=== PATIENT | male | born 1950 | race American Indian/Alaskan Native ===

== ENCOUNTER 2018-07-08 17:29 | Inpatient (IN) | payer MEDICARE ==
--- NOTE | 2018-07-08 17:47 | Emergency Department Report ---
ED Altered Mental Status HPI - General Stated Complaint: FEVER Time Seen by Provider: 07/08/18 17:33 Source: EMS Mode of arrival: Stretcher Limitations: Altered Mental Status - History of Present Illness Initial Comments: Condition is 68-year-old male that [facility] for fever and foul-smelling urine. Report received from EMS. Per EMS patient has had increased confusion and decreased appetite and fever and foul-smelling urine for the past 24 hours. Patient is A&OX1... Patient denies symptoms. MD Complaint: altered mental status, confusion -: Sudden Severity: Unable to Determine Associated Symptoms: fever/chills, foul smelling urine. denies: chest pain, cough, diaphoresis, headaches, loss of appetite, malaise, nausea/vomiting, rash, seizure, shortness of breath, syncope, weakness, difficulty walking, diarrhea, incontinence - Related Data Home Medications Medication Instructions Recorded Confirmed Last Taken Amlodipine Besylate/Benazepril 1 each PO 04/14/13 04/14/13 Unknown [Lotrel 10-40 mg] Aspirin [Baby Aspirin] 04/14/13 04/14/13 Unknown Ezetimibe/Simvastatin [Vytorin 1 each PO 04/14/13 04/14/13 Unknown 10-20 mg] [place]-3 Fatty Acids [[place]-3] 100 mg PO 04/14/13 04/14/13 Unknown Triamter/Hctz 37.5-25 mg 1 tab PO QDAY 04/14/13 04/14/13 Unknown [Maxzide-25] Previous Rx's Medication Instructions Recorded Last Taken Type Clopidogrel [Plavix] 75 mg PO QDAY #30 tablet 04/18/13 Unknown Rx HYDROcodone/APAP 5-325 [[place] 1 each PO Q8HR PRN #30 tablet 04/18/13 Unknown Rx 5-325 mg TAB] Allergies Allergy/AdvReac Type Severity Reaction Status Date / Time No Known Allergies Allergy Unverified 04/14/13 15:08 ED Review of Systems ROS: Stated complaint: FEVER Other details as noted in HPI Comment: Unobtainable due to pts medical conditions ED Past Medical Hx - Past Medical History Previous Medical History?: Yes Hx Hypertension: Yes Hx CVA: Yes (1991) Hx Congestive Heart Failure: No Hx Diabetes: Yes Hx Arthritis: Yes Hx Asthma: No Hx COPD: No Hx HIV: No Additional medical history: high cholesterol - Surgical History Past Surgical History?: Yes Additional Surgical History: cva 1989 - Family History Family history: no significant - Social History Smoking Status: Never Smoker Substance Use Type: None - Medications Home Medications: Home Medications Medication Instructions Recorded Confirmed Last Taken Type Amlodipine Besylate/Benazepril 1 each PO 04/14/13 04/14/13 Unknown History [Lotrel 10-40 mg] Aspirin [Baby Aspirin] 04/14/13 04/14/13 Unknown History Ezetimibe/Simvastatin [Vytorin 1 each PO 04/14/13 04/14/13 Unknown History 10-20 mg] [place]-3 Fatty Acids [[place]-3] 100 mg PO 04/14/13 04/14/13 Unknown History Triamter/Hctz 37.5-25 mg 1 tab PO QDAY 04/14/13 04/14/13 Unknown History [Maxzide-25] Clopidogrel [Plavix] 75 mg PO QDAY #30 tablet 04/18/13 Unknown Rx HYDROcodone/APAP 5-325 [[place] 1 each PO Q8HR PRN #30 tablet 04/18/13 Unknown Rx 5-325 mg TAB] ED Physical Exam - General Limitations: Altered Mental Status General appearance: alert, in no apparent distress - Head Head exam: Present: atraumatic, normocephalic - Eye Eye exam: Present: normal appearance - ENT ENT exam: Present: mucous membranes moist - Neck Neck exam: Present: normal inspection - Respiratory Respiratory exam: Present: normal lung sounds bilaterally. Absent: respiratory distress - Cardiovascular Cardiovascular Exam: Present: regular rate, normal rhythm. Absent: systolic murmur, diastolic murmur, rubs, gallop - GI/Abdominal GI/Abdominal exam: Present: soft, normal bowel sounds - Rectal Rectal exam: Present: deferred - Extremities Exam Extremities exam: Present: normal inspection - Back Exam Back exam: Present: normal inspection - Neurological Exam Neurological exam: Present: alert, altered - Psychiatric Psychiatric exam: Present: normal affect, normal mood - Skin Skin exam: Present: warm, dry, intact, normal color. Absent: rash - Assessment Assessment Interval: Baseline - Level of Consciousness 1a. Level of Consciousness: alert/keenly responsive - LOC Questions 1b. LOC Questions: answers both correctly - LOC Command 1c. LOC Commands: performs tasks correctly - Best Gaze 2. Best Gaze: normal - Visual 3. Visual: no visual loss - Facial Palsy 4. Facial Palsy: normal symmetrical movement - Motor Arm 5b. Motor Arm Right: no drift 5a. Motor Arm Left: no drift - Motor Leg 6b. Motor Leg Right: no drift 6a. Motor Leg Left: no drift - Limb Ataxia 7. Limb Ataxia: absent - Sensory 8. Sensory: normal - Best Language 9. Best Language: no aphasia - Dysarthria 10. Dysarthria: normal - Extinction and Inattention 11. Extinction/Inattention: no abnormality - Scoring Total Score: 0 Stroke Severity: No Stroke Symptoms ED Course Vital Signs 07/08/18 17:35 Temperature 101.6 F H Pulse Rate 112 H Respiratory 16 Rate Blood Pressure 125/72 O2 Sat by Pulse 96 Oximetry - Reevaluation(s) Reevaluation #1: discussed all results with family. Family agrees to plan of care and admission. 07/08/18 20:22 - Consultations Consultation #1: Hospitalist consult for admission. Hospitalist to admit patient. Bridge orders placed 07/08/18 20:22 07/08/18 20:24 - Lab Data Result diagrams: 07/08/18 17:55 07/08/18 17:55 Lab Results 07/08/18 07/08/18 07/08/18 Range/Units 17:55 17:55 17:55 WBC 9.4 (4.5-11.0) K/mm3 RBC 5.05 H (3.65-5.03) M/mm3 Hgb 15.1 (11.8-15.2) gm/dl Hct 46.0 H (35.5-45.6) % MCV 91 (84-94) fl MCH 30 (28-32) pg MCHC 33 (32-34) % RDW 14.4 (13.2-15.2) % Plt Count 255 (140-440) K/mm3 Sodium 135 L (137-145) mmol/L Potassium 3.7 (3.6-5.0) mmol/L Chloride 100.8 (98-107) mmol/L Carbon Dioxide 21 L (22-30) mmol/L Anion Gap 17 mmol/L BUN 11 (9-20) mg/dL Creatinine 0.8 (0.8-1.5) mg/dL Estimated GFR > 60 ml/min BUN/Creatinine Ratio 14 % Glucose 119 H (75-100) mg/dL Lactic Acid 1.50 (0.7-2.0) mmol/L Calcium 9.5 (8.4-10.2) mg/dL Total Bilirubin 0.60 (0.1-1.2) mg/dL AST 18 (5-40) units/L ALT 20 (7-56) units/L Alkaline Phosphatase 88 (35-129) units/L Total Protein 7.5 (6.3-8.2) g/dL Albumin 3.4 L (3.9-5) g/dL Albumin/Globulin Ratio 0.8 % Urine Color (Yellow) Urine Turbidity (Clear) Urine pH (5.0-7.0) Ur Specific [place] (1.003-1.030) Urine Protein (Negative) mg/dL Urine Glucose (UA) (Negative) mg/dL Urine Ketones (Negative) mg/dL Urine Blood (Negative) Urine Nitrite (Negative) Urine Bilirubin (Negative) Urine Urobilinogen (<2.0) mg/dL Ur Leukocyte Esterase (Negative) Urine WBC (Auto) (0.0-6.0) /HPF Urine RBC (Auto) (0.0-6.0) /HPF U Epithel Cells (Auto) (0-13.0) /HPF Urine Bacteria (Auto) (Negative) /HPF Urine Mucus /HPF 07/08/18 Range/Units 19:57 WBC (4.5-11.0) K/mm3 RBC (3.65-5.03) M/mm3 Hgb (11.8-15.2) gm/dl Hct (35.5-45.6) % MCV (84-94) fl MCH (28-32) pg MCHC (32-34) % RDW (13.2-15.2) % Plt Count (140-440) K/mm3 Sodium (137-145) mmol/L Potassium (3.6-5.0) mmol/L Chloride (98-107) mmol/L Carbon Dioxide (22-30) mmol/L Anion Gap mmol/L BUN (9-20) mg/dL Creatinine (0.8-1.5) mg/dL Estimated GFR ml/min BUN/Creatinine Ratio % Glucose (75-100) mg/dL Lactic Acid (0.7-2.0) mmol/L Calcium (8.4-10.2) mg/dL Total Bilirubin (0.1-1.2) mg/dL AST (5-40) units/L ALT (7-56) units/L Alkaline Phosphatase (35-129) units/L Total Protein (6.3-8.2) g/dL Albumin (3.9-5) g/dL Albumin/Globulin Ratio % Urine Color Yellow (Yellow) Urine Turbidity Clear (Clear) Urine pH 6.0 (5.0-7.0) Ur Specific [place] 1.012 (1.003-1.030) Urine Protein <15 mg/dl (Negative) mg/dL Urine Glucose (UA) Neg (Negative) mg/dL Urine Ketones Tr (Negative) mg/dL Urine Blood Mod (Negative) Urine Nitrite Pos (Negative) Urine Bilirubin Neg (Negative) Urine Urobilinogen 4.0 (<2.0) mg/dL Ur Leukocyte Esterase Sm (Negative) Urine WBC (Auto) 21.0 H (0.0-6.0) /HPF Urine RBC (Auto) 15.0 (0.0-6.0) /HPF U Epithel Cells (Auto) < 1.0 (0-13.0) /HPF Urine Bacteria (Auto) 1+ (Negative) /HPF Urine Mucus Few /HPF - Medical Decision Making Patient is a 68-year-old male that presents emergent with altered mental status bowel smelling urine P a patient found to have a UTI. Patient admitted to the hospitalist service for further outpatient treatment. Patient's labs essentially negative. - Differential Diagnosis uti. Altered mental status. dehydration Critical care attestation.: If time is entered above; I have spent that time in minutes in the direct care of this critically ill patient, excluding procedure time. ED Disposition Clinical Impression: Foul smelling urine, Dehydration Altered mental state Qualifiers: Altered mental status type: unspecified Qualified Code(s): R41.82 - Altered mental status, unspecified Disposition: OP ADMIT IP TO THIS HOSP Is pt being admited?: Yes Does the pt Need Aspirin: No Condition: Serious Time of Disposition: 20:21
[2018-07-08 18:16] LABS: Hemoglobin 15.1 gm/dl (11.8-15.2); Mean Corpuscular HGB Conc 33 % (32-34); Mean Corpuscular Volume 91 fl (84-94); Platelet Count 255 K/mm3 (140-440); Red Blood Count 5.05 M/mm3 (3.65-5.03); Red Cell Distribution Width 14.4 % (13.2-15.2)
[2018-07-08 18:25] LABS: Alanine Aminotransferase 20 units/L (7-56); Albumin 3.4 g/dL (3.9-5); BUN/Creatinine Ratio 14; Blood Urea Nitrogen 11 mg/dL (9-20); Calcium 9.5 mg/dL (8.4-10.2); Hemolysis Index 17
[2018-07-08] MEDS ORDERED: TYLENOL PR ONE (19:59)
[2018-07-08 20:18] LABS: Bacteria,Urine 1+ /HPF (Negative); Bilirubin,Urine NEG (Negative); Blood,Urine MOD (Negative); Color,Urine Yellow (Yellow); Mucus,Urine FEW /HPF; Protein,Urine <15 mg/dL mg/dL (Negative)
[2018-07-08] MEDS ORDERED: NACL 0.9% 1000 ML 1,000 ML IV ONE (20:21)
[2018-07-08] MEDS ORDERED: ROCEPHIN/NS 1 GM/50 ML 1 GM/50 ML BAG IV ONE (20:21)
[2018-07-08] MEDS ORDERED: D50W (25GM) Syringe IV PRN (22:48)
[2018-07-08] MEDS ORDERED: TYLENOL PO PRN (22:51)
--- NOTE | 2018-07-09 04:32 | History and Physical Report ---
CHIEF COMPLAINT: Altered mental status. HISTORY OF PRESENT ILLNESS: The patient is a 68-year-old male, who was brought in from [facility] because of fever and foul-smelling urine. The patient was noted to be more confused than his baseline with decreased appetite, fever and foul-smelling urine going on for about 24 hours. There is no history of shortness of breath. No history of nausea and vomiting and no history of chest pain. PAST MEDICAL HISTORY: Pertinent for hypertension, cerebrovascular accident, diabetes mellitus, arthritis, hypercholesterolemia, Alzheimer. PAST SURGICAL HISTORY: Pertinent for surgery in 1989. FAMILY HISTORY: Noncontributory. SOCIAL HISTORY: The patient is cleared by the [facility]. The patient does not smoke, does not drink alcohol and does not use illicit drugs. MEDICATIONS: The patient is on amlodipine/benazepril 10/40 mg 1 by mouth daily, aspirin, dose and frequency unknown, Vytorin 10/20 mg 1 by mouth daily, [place]-3 fatty acid 100 mg by mouth daily, Maxzide 25 one by mouth daily, Plavix 75 mg by mouth daily, [place] 5/325 mg 1 by mouth every 8 hours as needed for pain. ALLERGIES: There are no known drug allergies. REVIEW OF SYSTEMS: CONSTITUTIONAL: Fever present. No chills, no diaphoresis. HEENT: There is no headache or sore throat. CARDIOVASCULAR SYSTEM: There is no chest pain or orthopnea. RESPIRATORY SYSTEM: There is no shortness of breath or cough. GASTROINTESTINAL SYSTEM: There is no nausea, no vomiting, no abdominal pain, diarrhea or constipation. NEUROLOGICAL: Altered mental status present. No numbness, no dizziness. MUSCULOSKELETAL SYSTEM: There is no joint pain or swelling. DERMATOLOGICAL SYSTEM: There is no skin rash or itching. GENITOURINARY SYSTEM: There is no dysuria, hematuria, or flank pain; however, there is foul-smelling urine. Rest of the system review is normal. PHYSICAL EXAMINATION: GENERAL: At the time of exam, the patient was found to be alert, oriented to person only and not in acute distress. VITAL SIGNS: Shows temperature of 101.6 degrees Fahrenheit, pulse of 112, respirations 16, blood pressure 125/72, O2 sat of 96% on room air. HEENT: Showed pupils to be equal, round, reactive to light and accommodating. Extraocular muscles are intact. NECK: Supple with no JVD or carotid bruit. CARDIOVASCULAR: Show normal first and second heart sounds with no gallops or murmur. RESPIRATORY: Showed good air entry on both sides of the lung with no abnormal breath sounds. GASTROINTESTINAL SYSTEM: Show abdomen to be full, soft, nontender with no organomegaly or rigidity. NEUROLOGIC: Shows no focal deficit. MUSCULOSKELETAL SYSTEM: Show no joint swelling or tenderness. DERMATOLOGICAL SYSTEM: Show no skin rash. GENITOURINARY SYSTEM: Showing no costovertebral angle tenderness. PERTINENT LABORATORY AND IMAGING STUDIES: The patient has CBC done with normal white count, normal hemoglobin and slightly elevated hematocrit of 46. The patient's chemistry showed low sodium of 135, normal potassium, normal chloride, low CO2 of 21 And low albumin of 3.4. The patient's urinalysis show no urine leukocyte esterase with elevated urine WBC of 21 and elevated urine RBC of 15 and 1+ bacteria with trace ketones and positive urine nitrite. DIAGNOSES: 1. Altered mental status. 2. Urinary tract infection. PLAN OF ACTION: 1. The patient will be admitted to medical floor on remote telemetry. 2. Transient ischemic attack. The patient will be on IV ceftriaxone 1 gram daily for treatment of urinary tract infection. 3. The patient will have speech therapy evaluation for difficulty in swallowing. 4. The patient will be on Accu-Chek before meals and at bedtime followed by low-dose sliding scale using regular insulin coverage. 5. The patient will be on his home medication as shown in the medication reconciliation section. 6. The patient will be on normal saline at 75 mL an hour. 7. The patient will be on his home medication as shown in the medication reconciliation section. JOB# [id number] OCN/NTS
[2018-07-09] MEDS: NACL 0.9% 1000 ML 1,000 ML IV SCH ×2 (06:05→20:08)
--- NOTE | 2018-07-09 08:08 | Progress Note ---
Assessment and Plan Assessment and plan: Patient is a 68 yo man from [place] with a history of Dementia, CVA s/p tPA 2012, hypertension and dyslipidemia who presented to [facility] ED with AMS, fever and foul smelling urine. -Sepsis from UTI: consult ID, treat with abx, ivf, tylenol, and follow cultures -Acute metabolic encephalopathy due to above -Hypertension: low salt diet -Dyslipidemia: statin History Interval history: Patient was seen and examined. Follow-up on current diagnosis of fever, uti. Overnight uneventful. Imaging, nursing note, chart, labs and old chart reviewed. Hospitalist Physical - Physical exam Narrative exam: Gen: WDWN, NAD, Awake, Alert, confused HEENT: NCAT, EOMI, PERRL, OP Clear Neck: supple, no adenopathy, no thyromegaly, no JVD CVS/Heart: RRR, normal S1S2, pulses present bilaterally Chest/Lungs: CTA B, Symmetrical chest expansion, good air entry bilaterally GI/Abdomen: soft, NTND, good bowel sounds, no guarding or rebound /Bladder: no suprapubic tenderness, no CVA or paraspinal tenderness Extermity/Skin: no c/c/e, no obvious rash MSK: FROM x 4 Neuro: CN 2-12 grossly intact, no new focal deficits Psych: calm - Constitutional Vitals: Temp Pulse Resp BP Pulse Ox 99.5 F 87 20 133/65 93 07/09/18 02:34 07/09/18 02:34 07/09/18 02:34 07/09/18 02:34 07/09/18 02:34 Results - Labs CBC & Chem 7: 07/08/18 17:55 07/08/18 17:55 Labs: Laboratory Last Values WBC 9.4 K/mm3 (4.5-11.0) 07/08/18 17:55 RBC 5.05 M/mm3 (3.65-5.03) H 07/08/18 17:55 Hgb 15.1 gm/dl (11.8-15.2) 07/08/18 17:55 Hct 46.0 % (35.5-45.6) H 07/08/18 17:55 MCV 91 fl (84-94) 07/08/18 17:55 MCH 30 pg (28-32) 07/08/18 17:55 MCHC 33 % (32-34) 07/08/18 17:55 RDW 14.4 % (13.2-15.2) 07/08/18 17:55 Plt Count 255 K/mm3 (140-440) 07/08/18 17:55 Sodium 135 mmol/L (137-145) L 07/08/18 17:55 Potassium 3.7 mmol/L (3.6-5.0) 07/08/18 17:55 Chloride 100.8 mmol/L (98-107) 07/08/18 17:55 Carbon Dioxide 21 mmol/L (22-30) L 07/08/18 17:55 Anion Gap 17 mmol/L 07/08/18 17:55 BUN 11 mg/dL (9-20) 07/08/18 17:55 Creatinine 0.8 mg/dL (0.8-1.5) 07/08/18 17:55 Estimated GFR > 60 ml/min 07/08/18 17:55 BUN/Creatinine Ratio 14 % 07/08/18 17:55 Glucose 119 mg/dL (75-100) H 07/08/18 17:55 Lactic Acid 1.50 mmol/L (0.7-2.0) 07/08/18 17:55 Calcium 9.5 mg/dL (8.4-10.2) 07/08/18 17:55 Total Bilirubin 0.60 mg/dL (0.1-1.2) 07/08/18 17:55 AST 18 units/L (5-40) 07/08/18 17:55 ALT 20 units/L (7-56) 07/08/18 17:55 Alkaline Phosphatase 88 units/L (35-129) 07/08/18 17:55 Total Protein 7.5 g/dL (6.3-8.2) 07/08/18 17:55 Albumin 3.4 g/dL (3.9-5) L 07/08/18 17:55 Albumin/Globulin Ratio 0.8 % 07/08/18 17:55 Urine Color Yellow (Yellow) 07/08/18 19:57 Urine Turbidity Clear (Clear) 07/08/18 19:57 Urine pH 6.0 (5.0-7.0) 07/08/18 19:57 Ur Specific [place] 1.012 (1.003-1.030) 07/08/18 19:57 Urine Protein <15 mg/dl mg/dL (Negative) 07/08/18 19:57 Urine Glucose (UA) Neg mg/dL (Negative) 07/08/18 19:57 Urine Ketones Tr mg/dL (Negative) 07/08/18 19:57 Urine Blood Mod (Negative) 07/08/18 19:57 Urine Nitrite Pos (Negative) 07/08/18 19:57 Urine Bilirubin Neg (Negative) 07/08/18 19:57 Urine Urobilinogen 4.0 mg/dL (<2.0) 07/08/18 19:57 Ur Leukocyte Esterase Sm (Negative) 07/08/18 19:57 Urine WBC (Auto) 21.0 /HPF (0.0-6.0) H 07/08/18 19:57 Urine RBC (Auto) 15.0 /HPF (0.0-6.0) 07/08/18 19:57 U Epithel Cells (Auto) < 1.0 /HPF (0-13.0) 07/08/18 19:57 Urine Bacteria (Auto) 1+ /HPF (Negative) 07/08/18 19:57 Urine Mucus Few /HPF 07/08/18 19:57
[2018-07-09] MEDS: HumaLOG SUB-Q SCH ×3 (09:54→19:30)
[2018-07-09] MEDS: PROSCAR PO SCH (09:56)
[2018-07-09] MEDS: PLAVIX PO SCH (09:56)
[2018-07-09] MEDS: NORVASC PO SCH (09:57)
[2018-07-09] MEDS: BABY ASPIRIN PO SCH (09:57)
[2018-07-09] MEDS: HEPARIN SUB-Q SCH ×2 (09:57→21:52)
[2018-07-09] MEDS: ROCEPHIN/NS 1 GM/50 ML 1 GM/50 ML BAG IV SCH (10:19)
--- NOTE | 2018-07-09 11:59 | Consultation ---
History of Present Illness - Reason for Consult Consult date: 07/09/18 Sepsis, UTI Requesting physician: ESTEVAN MOSQUERA - History of Present Illness The patient is a 68-year-old male with coronary artery disease, BPH, Alzheimer's disease, intermediate resident was brought to the emergency room yesterday with fever and complaints of foul-smelling urine. There were concerns for a possible urinary tract infection. Patient was also thought to be more confused compared to his baseline. Here, he was noted to have a temperature of 101.6F. Patient was started empirically on IV ceftriaxone. Infectious diseases was consulted for antibiotic recommendations. The patient is awake alert, comfortable. He is able to answer basic questions. He is oriented to place, knows he is in the hospital, thinks it is July 2011. He denies any discomfort. Denies any nausea, vomiting. Denies any urinary burning. Due to the patient being a poor historian, history was obtained also from chart review and by discussing with the patient's RN. It seems that the patient had a Huang catheter that was inserted in the emergency room and then later removed upon transfer to the floor. The patient did not come in with a indwelling Huang catheter. Review of Systems: Limited due to AMS and dementia Medications and Allergies Allergies Allergy/AdvReac Type Severity Reaction Status Date / Time No Known Allergies Allergy Unverified 04/14/13 15:08 Home Medications Medication Instructions Recorded Confirmed Last Taken Type Aspirin [Baby Aspirin] 1 tab PO DAILY 04/14/13 07/08/18 Unknown History Triamter/Hctz 37.5-25 mg 1 tab PO QDAY 04/14/13 07/08/18 Unknown History [Maxzide-25] Clopidogrel [Plavix] 75 mg PO QDAY #30 tablet 04/18/13 07/08/18 Unknown Rx Acetaminophen 325 mg PO Q4H PRN 07/08/18 07/08/18 Unknown History AtorvaSTATin 80 mg PO DAILY 07/08/18 07/08/18 Unknown History Finasteride 5 mg PO DAILY 07/08/18 07/08/18 Unknown History Tamsulosin 0.4 mg PO HS 07/08/18 07/08/18 Unknown History amLODIPine 10 mg PO DAILY 07/08/18 07/08/18 Unknown History Active Meds: Active Medications Acetaminophen (Tylenol) 650 mg PO Q4H PRN PRN Reason: Fever >101 Amlodipine Besylate (Norvasc) 10 mg PO DAILY [facility] Last Admin: 07/09/18 09:57 Dose: 10 mg Documented by: Aspirin (Baby Aspirin) 81 mg PO DAILY [facility] Last Admin: 07/09/18 09:57 Dose: 81 mg Documented by: Atorvastatin Calcium (Lipitor) 80 mg PO DAILY [facility] Last Admin: 07/09/18 09:56 Dose: 80 mg Documented by: Clopidogrel Bisulfate (Plavix) 75 mg PO QDAY [facility] Last Admin: 07/09/18 09:56 Dose: 75 mg Documented by: Dextrose (D50w (25gm) Syringe) 50 ml IV PRN PRN PRN Reason: Hypoglycemia Finasteride (Proscar) 5 mg PO DAILY [facility] Last Admin: 07/09/18 09:56 Dose: 5 mg Documented by: Heparin Sodium (Porcine) (Heparin) 5,000 unit SUB-Q Q12HR [facility] Last Admin: 07/09/18 09:57 Dose: 5,000 unit Documented by: Ceftriaxone Sodium (Rocephin/Ns 1 Gm/50 Ml) 1 gm in 50 mls @ 100 mls/hr IV Q24HR [facility]; Protocol Last Admin: 07/09/18 10:19 Dose: 100 mls/hr Documented by: Sodium Chloride (Nacl 0.9% 1000 Ml) 1,000 mls @ 75 mls/hr IV DIRECT [facility] Last Admin: 07/09/18 06:05 Dose: 75 mls/hr Documented by: Insulin Human Lispro (Humalog) 0 unit SUB-Q [facility]; Protocol Last Admin: 07/09/18 09:54 Dose: Not Given Documented by: Insulin Human Lispro (Humalog) 0 unit SUB-Q QHS [facility]; Protocol Tamsulosin HCl (Flomax) 0.4 mg PO HS [facility] Triamterene/HCTZ (Maxzide-25) 1 each PO QDAY [facility] Physical Examination - Physical Exam Narrative exam: Physical Exam: Constitutional: Alert, cooperative. No acute distress Head, Ears, Nose: Normocephalic, atraumatic. External ears, nose normal Eyes: Conjunctivae/corneas clear. No icterus. No ptosis. Neck: Supple, no meningeal signs Oral: no thrush, no ulcers. Cardiovascular: S1, S2 normal. Respiratory: Good air entry, clear to auscultation bilaterally GI: Soft, non-tender; bowel sounds normal. No peritoneal signs. Has adult di apers on. Musculoskeletal: No pedal edema, no cyanosis. No suprapubic or CVA tenderness. Skin: No rash or abscess Hem/Lymphatic: No palpable cervical or supraclavicular nodes. No lymphangitis Psych: Mood ok. Affect normal Neurological: Awake, alert, oriented x 1. No gross abnormality - Constitutional Vitals: Vital Signs Temp Pulse Resp BP Pulse Ox 99.4 F 78 20 125/68 92 07/09/18 07:54 07/09/18 07:54 07/09/18 07:54 07/09/18 09:57 07/09/18 07:54 Temperature -Last 24 Hours Temperature 99.4 F Temperature 99.5 F Temperature 100.8 F Temperature 99 F Temperature 101.6 F Results - Labs CBC & Chem 7: 07/08/18 17:55 07/08/18 17:55 Labs: Abnormal lab results 07/08/18 07/08/18 07/08/18 Range/Units 17:55 17:55 19:57 RBC 5.05 H (3.65-5.03) M/mm3 Hct 46.0 H (35.5-45.6) % Sodium 135 L (137-145) mmol/L Carbon Dioxide 21 L (22-30) mmol/L Glucose 119 H (75-100) mg/dL Albumin 3.4 L (3.9-5) g/dL Urine WBC (Auto) 21.0 H (0.0-6.0) /HPF Assessment and Plan Cultures: None this admission. A/P: 68-year-old male with coronary artery disease, BPH, Alzheimer's disease, intermediate resident, admitted with: 1) SIRS v/s Sepsis, likely secondary to urinary tract infection: The UA showed pyuria. Patient with known history of BPH. As per discussion with RN, he did not come in with an indwelling Huang catheter (seems one was briefly inserted in ER and then removed). Currently responding well to treatment. Urine and blood culture both it seems were not collected for some reason. We will try to do a lab add-on. Continue ceftriaxone for now. Clinically, there is no concern for a pyelonephritis. 2) Acute encephalopathy on background of dementia: Appears to be now at baseline Recs: - Urine and blood culture both it seems were not collected for some reason. He has already received antibiotics now, so yield is going to be low. - Continue IV Ceftriaxone 1 gm q24 hrs, if he remains afebrile for 24 hours, OK to discharge on PO Cefdinir 300 mg BID to complete a total of 7 days d/w Dr. Mosquera. Rachell Stevens MD [facility] C: [phone] O: [phone] F: [phone]
[2018-07-09] MEDS: MAXZIDE-25 PO SCH (13:04)
[2018-07-09] MEDS ORDERED: HumaLOG SUB-Q SCH (22:00)
[2018-07-09] MEDS ORDERED: FLOMAX PO SCH (22:00)
[2018-07-10] MEDS: HumaLOG SUB-Q SCH (10:32)
[2018-07-10] MEDS: ROCEPHIN/NS 1 GM/50 ML 1 GM/50 ML BAG IV SCH (12:26)
[2018-07-10] MEDS: BABY ASPIRIN PO SCH (12:29)
[2018-07-10] MEDS: MAXZIDE-25 PO SCH (12:37)
[2018-07-10] MEDS: HEPARIN SUB-Q SCH (12:37)
[2018-07-10] MEDS: NORVASC PO SCH (12:38)
[2018-07-10] MEDS: PLAVIX PO SCH (12:39)
[2018-07-10] MEDS: PROSCAR PO SCH (12:40)
--- NOTE | 2018-07-10 13:28 | Progress Note ---
Assessment and Plan Assessment and plan: Patient is a 68 yo man from [place] with a history of Dementia, CVA s/p tPA 2012, hypertension and dyslipidemia who presented to [facility] ED with AMS, fever and foul smelling urine. -Sepsis from UTI: no fever >24hours, tylenol, and no cultures done prior to starting abx on admission -Acute metabolic encephalopathy due to above -Hypertension: low salt diet -Dyslipidemia: statin Back to [facility]. Patient's NOK: Daughter, Dominique Osuna contact: [phone] informed the patient will return to [facility] when d/c. whom I called at 1315 and left message. History Interval history: Patient was seen and examined. Follow-up on current diagnosis of fever, uti. Overnight uneventful. Imaging, nursing note, chart, labs and old chart reviewed. Hospitalist Physical - Physical exam Narrative exam: Gen: WDWN, NAD, Awake, Alert, confused HEENT: NCAT, EOMI, PERRL, OP Clear Neck: supple, no adenopathy, no thyromegaly, no JVD CVS/Heart: RRR, normal S1S2, pulses present bilaterally Chest/Lungs: CTA B, Symmetrical chest expansion, good air entry bilaterally GI/Abdomen: soft, NTND, good bowel sounds, no guarding or rebound /Bladder: no suprapubic tenderness, no CVA or paraspinal tenderness Extermity/Skin: no c/c/e, no obvious rash MSK: right hemiparesis Neuro: CN 2-12 grossly intact, no new focal deficits Psych: calm - Constitutional Vitals: Temp Pulse Resp BP Pulse Ox 99.1 F 75 20 129/73 96 07/10/18 07:25 07/10/18 07:25 07/10/18 07:25 07/10/18 12:38 07/10/18 07:25 Results - Labs CBC & Chem 7: 07/08/18 17:55 07/08/18 17:55 Labs: Laboratory Last Values WBC 9.4 K/mm3 (4.5-11.0) 07/08/18 17:55 RBC 5.05 M/mm3 (3.65-5.03) H 07/08/18 17:55 Hgb 15.1 gm/dl (11.8-15.2) 07/08/18 17:55 Hct 46.0 % (35.5-45.6) H 07/08/18 17:55 MCV 91 fl (84-94) 07/08/18 17:55 MCH 30 pg (28-32) 07/08/18 17:55 MCHC 33 % (32-34) 07/08/18 17:55 RDW 14.4 % (13.2-15.2) 07/08/18 17:55 Plt Count 255 K/mm3 (140-440) 07/08/18 17:55 Sodium 135 mmol/L (137-145) L 07/08/18 17:55 Potassium 3.7 mmol/L (3.6-5.0) 07/08/18 17:55 Chloride 100.8 mmol/L (98-107) 07/08/18 17:55 Carbon Dioxide 21 mmol/L (22-30) L 07/08/18 17:55 Anion Gap 17 mmol/L 07/08/18 17:55 BUN 11 mg/dL (9-20) 07/08/18 17:55 Creatinine 0.8 mg/dL (0.8-1.5) 07/08/18 17:55 Estimated GFR > 60 ml/min 07/08/18 17:55 BUN/Creatinine Ratio 14 % 07/08/18 17:55 Glucose 119 mg/dL (75-100) H 07/08/18 17:55 POC Glucose 102 (70-105) 07/10/18 11:24 Lactic Acid 1.50 mmol/L (0.7-2.0) 07/08/18 17:55 Calcium 9.5 mg/dL (8.4-10.2) 07/08/18 17:55 Total Bilirubin 0.60 mg/dL (0.1-1.2) 07/08/18 17:55 AST 18 units/L (5-40) 07/08/18 17:55 ALT 20 units/L (7-56) 07/08/18 17:55 Alkaline Phosphatase 88 units/L (35-129) 07/08/18 17:55 Troponin T < 0.010 ng/mL (0.00-0.029) 07/10/18 00:31 Total Protein 7.5 g/dL (6.3-8.2) 07/08/18 17:55 Albumin 3.4 g/dL (3.9-5) L 07/08/18 17:55 Albumin/Globulin Ratio 0.8 % 07/08/18 17:55 Urine Color Yellow (Yellow) 07/08/18 19:57 Urine Turbidity Clear (Clear) 07/08/18 19:57 Urine pH 6.0 (5.0-7.0) 07/08/18 19:57 Ur Specific [place] 1.012 (1.003-1.030) 07/08/18 19:57 Urine Protein <15 mg/dl mg/dL (Negative) 07/08/18 19:57 Urine Glucose (UA) Neg mg/dL (Negative) 07/08/18 19:57 Urine Ketones Tr mg/dL (Negative) 07/08/18 19:57 Urine Blood Mod (Negative) 07/08/18 19:57 Urine Nitrite Pos (Negative) 07/08/18 19:57 Urine Bilirubin Neg (Negative) 07/08/18 19:57 Urine Urobilinogen 4.0 mg/dL (<2.0) 07/08/18 19:57 Ur Leukocyte Esterase Sm (Negative) 07/08/18 19:57 Urine WBC (Auto) 21.0 /HPF (0.0-6.0) H 07/08/18 19:57 Urine RBC (Auto) 15.0 /HPF (0.0-6.0) 07/08/18 19:57 U Epithel Cells (Auto) < 1.0 /HPF (0-13.0) 07/08/18 19:57 Urine Bacteria (Auto) 1+ /HPF (Negative) 07/08/18 19:57 Urine Mucus Few /HPF 07/08/18 19:57 Nutrition/Malnutrition Assess - Dietary Evaluation Nutrition/Malnutrition Findings: Nutrition Notes Start: 07/09/18 16:24 Freq: Status: Active Protocol: Document 07/09/18 16:24 RM (Rec: 07/09/18 16:24 RM [id number]) Nutrition Notes Need for Assessment generated from: MD Order Initial or Follow up Brief Note Current Diagnosis Diabetes Sepsis Hypertension Stroke Other Pertinent Diagnosis Dyslipidemia, Alzheimer's, AMS , UTI Current Diet Consistent Carb,Pureed Labs/Tests Reviewed Pertinent Medications Reviewed Height 5 ft 1 in Weight 180 kg [place] Body Weight (lbs) 112.0 BMI 74.9 Subjective/Other Information Consulted for "Uses thickner in diet." Screened for skin risk. No david recorded. Pt is from [place]. Pureed diet with nectar thick liquids recommended per ST note 07/09/18. Nurse stated she recently changed order according to ST recommendation . Tech had fed most of pureed lunch to pt by time of visit. Burn Absent Trauma Absent Nutrition Intervention Revisit per MD consult or patient Sign Off request:
--- NOTE | 2018-07-10 13:32 | Discharge Summary ---
Providers - Providers Date of Admission: 07/08/18 20:23 Date of discharge: 07/10/18 Attending physician: ESTEVAN BIRD 07/08/18 20:18 Speech Therapy Evaluation and Treat [CONS] Routine Reason For Exam: History of swallowing difficulties. 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 She does NOT want him to be sent back to personal residential. Consult to Dietitian/Nutrition [CONS] Stat Physician Instructions: Reason For Exam: Reason for Consult: Uses Thickner in diet. 07/09/18 08:08 Consult to Physician [CONS] Routine Comment: dr. bird spoke w/ dr. shukla/yesica Consulting Provider: DUC SHUKLA Physician Instructions: Reason For Exam: Sepsis, UTI Primary care physician: CLARITZA OSUNA Hospitalization Condition: Stable Hospital course: Patient is a 68 yo man from [place] with a history of Dementia, CVA s/p tPA 2012, hypertension and dyslipidemia who presented to [facility] ED with AMS, fever and foul smelling urine. -Sepsis from UTI: no fever >24hours, tylenol, and no cultures done prior to starting abx on admission -Acute metabolic encephalopathy due to above -Hypertension: low salt diet -Dyslipidemia: statin Back to [facility] on PO Cefdinir 300 mg BID to complete a total of 7 days Patient's NOK: Daughter, Dominique Osuna contact: [phone] informed the patient will return to [facility] when d/c. whom I called at 1315 and left message. Disposition: DC/[place]-03 SNF W [facility] CERT Time spent for discharge: 32 minutes Core Measure Documentation - Palliative Care Palliative Care/ Comfort Measures: Not Applicable - Core Measures Any of the following diagnoses?: none - VTE Discharge Requirements Deep Vein Thrombosis/Pulmonary Embolism Present on Admission: No Has pt received <5 days of overlap therapy or INR<2.0: No Anticoagulant overlap therapy prescribed at discharge: No Contraindication No Overlap Therapy order at DC: Not Indicated Exam - Physical Exam Narrative exam: Gen: WDWN, NAD, Awake, Alert, confused HEENT: NCAT, EOMI, PERRL, OP Clear Neck: supple, no adenopathy, no thyromegaly, no JVD CVS/Heart: RRR, normal S1S2, pulses present bilaterally Chest/Lungs: CTA B, Symmetrical chest expansion, good air entry bilaterally GI/Abdomen: soft, NTND, good bowel sounds, no guarding or rebound /Bladder: no suprapubic tenderness, no CVA or paraspinal tenderness Extermity/Skin: no c/c/e, no obvious rash MSK: right hemiparesis Neuro: CN 2-12 grossly intact, no new focal deficits Psych: calm - Constitutional Vitals: Temp Pulse Resp BP Pulse Ox 99.1 F 75 20 129/73 96 07/10/18 07:25 07/10/18 07:25 07/10/18 07:25 07/10/18 12:38 07/10/18 07:25 Plan Activity: up only with assistance, fall precautions, other (no strenous activity unless cleared by pcp) Diet: low salt Follow up with: CLARITZA OSUNA MD [Primary Care Provider] - 3-5 Days Prescriptions: Cefdinir 300 mg PO BID 7 Days capsule
[2018-07-10 14:37] VITALS: BP 128/54
== END 2018-07-10 15:15 | DRG 871 ==
LOC: ED 17:29 → 2B-ACE 20:23
PROVIDERS: ADMIT Internal Medicine; ATTEND Internal Medicine
DX: A41.9 Sepsis, unspecified organism (principal); G93.41 Metabolic encephalopathy; N39.0 Urinary tract infection, site not specified; I69.351 Hemiplegia and hemiparesis following cerebral infarction affecting right dominant side; I10 Essential (primary) hypertension; E78.5 Hyperlipidemia, unspecified; N40.0 Benign prostatic hyperplasia without lower urinary tract symptoms; I25.10 Atherosclerotic heart disease of native coronary artery without angina pectoris; G30.9 Alzheimer's disease, unspecified; F02.80 Dementia in other diseases classified elsewhere, unspecified severity, without behavioral disturbance, psychotic disturbance, mood disturbance, and anxiety; E86.0 Dehydration; M19.90 Unspecified osteoarthritis, unspecified site; Z79.899 Other long term (current) drug therapy; Z79.82 Long term (current) use of aspirin
CPT/HCPCS: 36415; 80053; 81001; 82140; 82962; 84484; 85027; 93005; 93010; G0378; A9270-GY; J0696; J1644; J7030

== ENCOUNTER 2019-01-02 07:47 | Inpatient (IN) | payer MEDICARE ==
[2019-01-02] MEDS ORDERED: ATIVAN ONE (07:51)
[2019-01-02] MEDS ORDERED: KEPPRA 1,000 MG/NS 0.75% 100ML 1,000 MG/100 ML BAG IV ONE ×2 (07:53→07:54)
[2019-01-02] MEDS ORDERED: KEPPRA 1,000 MG in D5W 100 ML IV ONE (07:54)
[2019-01-02] MEDS ORDERED: ATIVAN IV ONE ×2 (07:54→07:56)
[2019-01-02] MEDS ORDERED: NACL 0.9% 1000 ML 1,000 ML IV ONE ×2 (07:56→09:35)
[2019-01-02 08:24] LABS: Hematocrit 46.2 % (35.5-45.6); Hemoglobin 14.8 gm/dl (11.8-15.2); Mean Corpuscular HGB Conc 32 % (32-34); Mean Corpuscular Volume 94 fl (84-94); Platelet Count 320 K/mm3 (140-440); Red Blood Count 4.89 M/mm3 (3.65-5.03); Red Cell Distribution Width 14.2 % (13.2-15.2)
[2019-01-02 08:29] LABS: INR 1.1 (0.87-1.13); Partial Thromboplastin Time 26.9 Sec. (24.2-36.6)
[2019-01-02 08:39] LABS: Albumin 3.9 g/dL (3.9-5); BUN/Creatinine Ratio 11; Blood Urea Nitrogen 10 mg/dL (9-20); Calcium 9.5 mg/dL (8.4-10.2); Hemolysis Index 110
--- NOTE | 2019-01-02 08:52 | Cat Scan Report ---
CT HEAD WITHOUT CONTRAST INDICATION: Seizure TECHNIQUE: All CT scans at this location are performed using CT dose reduction for ALARA by means of automated exposure control. COMPARISON: None available. FINDINGS: BRAIN: No hemorrhage or mass effect are seen. No evidence of acute infarction is noted. Moderate whit e matter microvascular changes are seen. Hypodensity in the anterior left hippocampus probably is an old lacunar infarction. An old lacunar infarction is seen in the elie on the right. ORBITS: Normal as visualized. SOFT TISSUES OF HEAD: Normal. CALVARIUM: Normal. VISUALIZED PARANASAL SINUSES AND MASTOID AIR CELLS: Moderate bilateral ethmoid mucosal thickening is seen without air-fluid levels. Slight mucosal thickening is seen in the sphenoid sinuses bilaterally. ADDITIONAL FINDINGS: None. IMPRESSION: No acute intracranial abnormality. Signer Name: Pancho Bhat MD Signed: 01/02/2019 8:48 AM Workstation Name: [id number]
[2019-01-02 09:11] LABS: Bilirubin,Urine NEG (Negative); Blood,Urine SM (Negative); Color,Urine Yellow (Yellow); Mucus,Urine FEW /HPF; Urobilinogen,Urine < 2.0 mg/dL (<2.0); WBC,Urine < 1.0 /HPF (0.0-6.0)
--- NOTE | 2019-01-02 09:23 | XRay Report ---
CHEST 1 VIEW 0858 INDICATION / CLINICAL INFORMATION: Seizures. COMPARISON: None available. FINDINGS: SUPPORT DEVICES: None HEART / MEDIASTINUM: No significant abnormality. LUNGS / PLEURA: No significant pulmonary or pleural abnormality. No pneumothorax. ADDITIONAL FINDINGS: There appears to be mild gaseous distention of the stomach. IMPRESSION: No significant acute thoracic abnormality Signer Name: Pancho Bhat MD Signed: 01/02/2019 9:19 AM Workstation Name: [id number]
[2019-01-02 09:29] LABS: Amphetamine Screen,Urine PRESUMPTIVE NEGATIVE; Benzodiazepines Screen,Urine PRESUMPTIVE NEGATIVE; Cannabinoid Screen,Urine PRESUMPTIVE NEGATIVE; Cocaine Screen,Urine PRESUMPTIVE NEGATIVE; Methadone Screen,Urine PRESUMPTIVE NEGATIVE; Opiate Screen,Urine PRESUMPTIVE NEGATIVE
[2019-01-02 10:11] LABS: Anisocytosis 1+; Total Cells Counted 100
[2019-01-02 10:12] LABS: Platelet Estimate Consistent w Auto
--- NOTE | 2019-01-02 10:21 | Emergency Department Report ---
ED Seizure HPI - General Chief Complaint: Seizure Stated Complaint: AMS/SEIZURE Time Seen by Provider: 01/02/19 07:52 Source: EMS Mode of arrival: Stretcher Limitations: Altered Mental Status - History of Present Illness Initial Comments: EMS reports patient with hx of CVA and no hx seizure. Reports called to the NH with complaint of seizure. HPI limited due to patient condition altered mental status MD Complaint: possible seizure - Related Data Home Medications Medication Instructions Recorded Confirmed Last Taken Aspirin [Aspirin BABY CHEW TAB] 1 tab PO DAILY 04/14/13 07/08/18 Unknown Triamter/Hctz 37.5-25 mg 1 tab PO QDAY 04/14/13 07/08/18 Unknown [Maxzide-25] AtorvaSTATin 80 mg PO DAILY 07/08/18 07/08/18 Unknown Finasteride 5 mg PO DAILY 07/08/18 07/08/18 Unknown Tamsulosin 0.4 mg PO HS 07/08/18 07/08/18 Unknown amLODIPine 10 mg PO DAILY 07/08/18 07/08/18 Unknown Previous Rx's Medication Instructions Recorded Last Taken Type Clopidogrel [Plavix] 75 mg PO QDAY #30 tablet 04/18/13 Unknown Rx Acetaminophen [Acetaminophen TAB] 650 mg PO Q4H PRN #15 tablet 07/10/18 Unknown Rx Cefdinir 300 mg PO BID 7 Days capsule 07/10/18 Unknown Rx Allergies Allergy/AdvReac Type Severity Reaction Status Date / Time No Known Allergies Allergy Unverified 04/14/13 15:08 ED Review of Systems ROS: Stated complaint: AMS/SEIZURE Other details as noted in HPI Comment: Unobtainable due to pts medical conditions ED Past Medical Hx - Past Medical History Previous Medical History?: Yes Hx Hypertension: Yes Hx CVA: Yes (1991) Hx Congestive Heart Failure: No Hx Diabetes: Yes Hx Arthritis: Yes Hx Asthma: No Hx COPD: No Hx Dementia: Yes Hx HIV: No Additional medical history: high cholesterol - Surgical History Past Surgical History?: Yes Additional Surgical History: cva 1989 - Social History Smoking Status: Unknown if ever smoked - Medications Home Medications: Home Medications Medication Instructions Recorded Confirmed Last Taken Type Aspirin [Aspirin BABY CHEW TAB] 1 tab PO DAILY 04/14/13 07/08/18 Unknown History Triamter/Hctz 37.5-25 mg 1 tab PO QDAY 04/14/13 07/08/18 Unknown History [Maxzide-25] Clopidogrel [Plavix] 75 mg PO QDAY #30 tablet 04/18/13 07/08/18 Unknown Rx AtorvaSTATin 80 mg PO DAILY 07/08/18 07/08/18 Unknown History Finasteride 5 mg PO DAILY 07/08/18 07/08/18 Unknown History Tamsulosin 0.4 mg PO HS 07/08/18 07/08/18 Unknown History amLODIPine 10 mg PO DAILY 07/08/18 07/08/18 Unknown History Acetaminophen [Acetaminophen TAB] 650 mg PO Q4H PRN #15 tablet 07/10/18 Unknown Rx Cefdinir 300 mg PO BID 7 Days capsule 07/10/18 Unknown Rx ED Physical Exam - General Limitations: Altered Mental Status - Other Other exam information: GENERAL: Patient in severe acute distress HEAD: Normocephalic, atraumatic EYES: PERRLA HEART: Tachycardia, no murmur, S1-S2 are auscultated, pulses are symmetric LUNGS: Mild bilateral rhonchi ABDOMEN: Normal bowel sounds, no tenderness, no rebound, no guarding, no masses, no CVA tenderness MUSCULOSKELETAL: Normal joint range of motion, no redness, no swelling, no tenderness NEUROLOGIC: GCS 10, generalized tonic-clonic seizure activity SKIN: Skin is warm and damp ED Course Vital Signs 01/02/19 01/02/19 01/02/19 07:52 08:01 08:06 Temperature 98.1 F Pulse Rate 111 H 89 Respiratory 14 20 Rate Blood Pressure 167/78 O2 Sat by Pulse 93 Oximetry 01/02/19 01/02/19 01/02/19 08:19 08:30 08:31 Temperature Pulse Rate 85 Respiratory 14 20 Rate Blood Pressure 167/78 100/60 O2 Sat by Pulse 96 99 95 Oximetry 01/02/19 01/02/19 01/02/19 08:45 09:01 09:15 Temperature Pulse Rate Respiratory 18 12 24 Rate Blood Pressure 101/58 167/78 108/55 O2 Sat by Pulse 96 96 97 Oximetry 01/02/19 01/02/19 01/02/19 09:31 09:45 10:01 Temperature Pulse Rate 44 L Respiratory 16 16 24 Rate Blood Pressure 110/61 106/62 106/62 O2 Sat by Pulse 98 99 97 Oximetry 01/02/19 01/02/19 01/02/19 10:15 10:31 10:45 Temperature Pulse Rate Respiratory 14 14 27 H Rate Blood Pressure 144/64 146/95 162/83 O2 Sat by Pulse 98 97 98 Oximetry 01/02/19 01/02/19 11:01 11:15 Temperature Pulse Rate Respiratory 22 19 Rate Blood Pressure 145/77 137/73 O2 Sat by Pulse 99 99 Oximetry ED Medical Decision Making - Lab Data Result diagrams: 01/02/19 08:05 01/02/19 08:05 Laboratory Results - last 24 hr 01/02/19 01/02/19 01/02/19 08:05 08:05 08:05 WBC 7.8 RBC 4.89 Hgb 14.8 Hct 46.2 H MCV 94 MCH 30 MCHC 32 RDW 14.2 Plt Count 320 Add Manual Diff Complete Total Counted 100 Seg Neuts % (Manual) 45.0 Band Neutrophils % 0 Lymphocytes % (Manual) 46.0 H Reactive Lymphs % (Man) 0 Monocytes % (Manual) 5.0 Eosinophils % (Manual) 3.0 Basophils % (Manual) 1.0 Metamyelocytes % 0 Myelocytes % 0 Promyelocytes % 0 Blast Cells % 0 Nucleated RBC % Not Reportable Seg Neutrophils # Man 3.5 Band Neutrophils # 0.0 Lymphocytes # (Manual) 3.6 Abs React Lymphs (Man) 0.0 Monocytes # (Manual) 0.4 Eosinophils # (Manual) 0.2 Basophils # (Manual) 0.1 Metamyelocytes # 0.0 Myelocytes # 0.0 Promyelocytes # 0.0 Blast Cells # 0.0 WBC Morphology Not Reportable Hypersegmented Neuts Not Reportable Hyposegmented Neuts Not Reportable Hypogranular Neuts Not Reportable Smudge Cells Not Reportable Toxic Granulation Not Reportable Toxic Vacuolation Not Reportable Dohle Bodies Not Reportable Pelger-Huet Anomaly Not Reportable Monika Rods Not Reportable Platelet Estimate Consistent w auto Clumped Platelets Not Reportable Plt Clumps, EDTA Not Reportable Large Platelets Not Reportable Giant Platelets Not Reportable Platelet Satelliting Not Reportable Plt Morphology Comment Not Reportable RBC Morphology Not Reportable Dimorphic RBCs Not Reportable Polychromasia Not Reportable Hypochromasia Not Reportable Poikilocytosis Not Reportable Anisocytosis 1+ Microcytosis Not Reportable Macrocytosis Not Reportable Spherocytes Not Reportable Pappenheimer Bodies Not Reportable Sickle Cells Not Reportable Target Cells Not Reportable Tear Drop Cells Not Reportable Ovalocytes Not Reportable Helmet Cells Not Reportable [place] Bodies Not Reportable [place] Rings Not Reportable [place] Cells Not Reportable Bite Cells Not Reportable Crenated Cell Not Reportable Elliptocytes Not Reportable Acanthocytes (Spur) Not Reportable Rouleaux Not Reportable Hemoglobin C Crystals Not Reportable Schistocytes Not Reportable Malaria parasites Not Reportable Jani Bodies Not Reportable Hem Pathologist Commnt No PT 13.9 INR 1.10 APTT 26.9 Sodium 140 Potassium 3.7 Chloride 99.7 Carbon Dioxide 17 L Anion Gap 27 BUN 10 Creatinine 0.9 Estimated GFR > 60 BUN/Creatinine Ratio 11 Glucose 166 H POC Glucose Calcium 9.5 Total Bilirubin 0.50 AST 27 ALT 27 Alkaline Phosphatase 96 Troponin T < 0.010 Total Protein 7.5 Albumin 3.9 Albumin/Globulin Ratio 1.1 Urine Color Urine Turbidity Urine pH Ur Specific [place] Urine Protein Urine Glucose (UA) Urine Ketones Urine Blood Urine Nitrite Urine Bilirubin Urine Urobilinogen Ur Leukocyte Esterase Urine WBC (Auto) Urine RBC (Auto) U Epithel Cells (Auto) Urine Mucus Urine Opiates Screen Urine Methadone Screen Ur Barbiturates Screen Ur Phencyclidine Scrn Ur Amphetamines Screen U Benzodiazepines Scrn Urine Cocaine Screen U Marijuana (THC) Screen Drugs of Abuse Note 01/02/19 01/02/19 01/02/19 08:08 08:39 08:39 WBC RBC Hgb Hct MCV MCH MCHC RDW Plt Count Add Manual Diff Total Counted Seg Neuts % (Manual) Band Neutrophils % Lymphocytes % (Manual) Reactive Lymphs % (Man) Monocytes % (Manual) Eosinophils % (Manual) Basophils % (Manual) Metamyelocytes % Myelocytes % Promyelocytes % Blast Cells % Nucleated RBC % Seg Neutrophils # Man Band Neutrophils # Lymphocytes # (Manual) Abs React Lymphs (Man) Monocytes # (Manual) Eosinophils # (Manual) Basophils # (Manual) Metamyelocytes # Myelocytes # Promyelocytes # Blast Cells # WBC Morphology Hypersegmented Neuts Hyposegmented Neuts Hypogranular Neuts Smudge Cells Toxic Granulation Toxic Vacuolation Dohle Bodies Pelger-Huet Anomaly Monika Rods Platelet Estimate Clumped Platelets Plt Clumps, EDTA Large Platelets Giant Platelets Platelet Satelliting Plt Morphology Comment RBC Morphology Dimorphic RBCs Polychromasia Hypochromasia Poikilocytosis Anisocytosis Microcytosis Macrocytosis Spherocytes Pappenheimer Bodies Sickle Cells Target Cells Tear Drop Cells Ovalocytes Helmet Cells [place] Bodies [place] Rings [place] Cells Bite Cells Crenated Cell Elliptocytes Acanthocytes (Spur) Rouleaux Hemoglobin C Crystals Schistocytes Malaria parasites Jani Bodies Hem Pathologist Commnt PT INR APTT Sodium Potassium Chloride Carbon Dioxide Anion Gap BUN Creatinine Estimated GFR BUN/Creatinine Ratio Glucose POC Glucose 168 H Calcium Total Bilirubin AST ALT Alkaline Phosphatase Troponin T Total Protein Albumin Albumin/Globulin Ratio Urine Color Yellow Urine Turbidity Clear Urine pH 6.0 Ur Specific [place] 1.016 Urine Protein 100 mg/dl Urine Glucose (UA) Neg Urine Ketones Neg Urine Blood Sm Urine Nitrite Neg Urine Bilirubin Neg Urine Urobilinogen < 2.0 Ur Leukocyte Esterase Neg Urine WBC (Auto) < 1.0 Urine RBC (Auto) 16.0 U Epithel Cells (Auto) < 1.0 Urine Mucus Few Urine Opiates Screen Presumptive negative Urine Methadone Screen Presumptive negative Ur Barbiturates Screen Presumptive negative Ur Phencyclidine Scrn Presumptive negative Ur Amphetamines Screen Presumptive negative U Benzodiazepines Scrn Presumptive negative Urine Cocaine Screen Presumptive negative U Marijuana (THC) Screen Presumptive negative Drugs of Abuse Note Disclamer - EKG Data When compared to previous EKG there are: no significant change - Radiology Data Radiology results: report reviewed - Medical Decision Making Patient with status epilepticus multiple seizures without return to baseline. Plan admit for further evaluation. Hospitalist updated and accepts admission. Critical care attestation.: If time is entered above; I have spent that time in minutes in the direct care of this critically ill patient, excluding procedure time. ED Disposition Clinical Impression: Status epilepticus, Bradycardia Altered mental status, unspecified Qualifiers: Altered mental status type: unspecified Qualified Code(s): R41.82 - Altered mental status, unspecified Disposition: DC-09 OP ADMIT IP TO THIS HOSP Is pt being admited?: Yes Condition: Stable
[2019-01-02] MEDS ORDERED: ZOFRAN IV PRN (10:22)
[2019-01-02] MEDS ORDERED: TYLENOL PO PRN ×2 (10:22→12:48)
[2019-01-02] MEDS ORDERED: SODIUM CHLORIDE FLUSH SYRINGE 10 ML IV PRN (10:22)
[2019-01-02 10:25] LABS: Alanine Aminotransferase 27 units/L (7-56)
--- NOTE | 2019-01-02 12:58 | History and Physical Report ---
History of Present Illness Date of examination: 01/02/19 Date of admission: 01/02/19 10:22 Chief complaint: seizure History of present illness: 68-year-old male with history of multiple CVA in the past with residual generalized weakness on both side, hypertension, hyperlipidemia and diabetes mellitus type 2 presented from the [facility] with sudden onset of seizure. Patient received 1 dose of Keppra IV and Ativan in the ER. He remained postictal and confused. Family at the bedside and verified history from them. Patient is wheelchair bound at his baseline and unable to speak full sentences. Patient is getting admitted for further evaluation and management. Past History Past Medical History: diabetes, hypertension, hyperlipidemia, stroke Past Surgical History: No surgical history Social history: no significant social history Family history: stroke Medications and Allergies Allergies Allergy/AdvReac Type Severity Reaction Status Date / Time No Known Allergies Allergy Unverified 04/14/13 15:08 Home Medications Medication Instructions Recorded Confirmed Last Taken Type Aspirin [Aspirin BABY CHEW TAB] 1 tab PO DAILY 04/14/13 07/08/18 Unknown History Triamter/Hctz 37.5-25 mg 1 tab PO QDAY 04/14/13 07/08/18 Unknown History [Maxzide-25] Clopidogrel [Plavix] 75 mg PO QDAY #30 tablet 04/18/13 07/08/18 Unknown Rx AtorvaSTATin 80 mg PO DAILY 07/08/18 07/08/18 Unknown History Finasteride 5 mg PO DAILY 07/08/18 07/08/18 Unknown History Tamsulosin 0.4 mg PO HS 07/08/18 07/08/18 Unknown History amLODIPine 10 mg PO DAILY 07/08/18 07/08/18 Unknown History Acetaminophen [Acetaminophen TAB] 650 mg PO Q4H PRN #15 tablet 07/10/18 Unknown Rx Cefdinir 300 mg PO BID 7 Days capsule 07/10/18 Unknown Rx Active Meds: Active Medications Acetaminophen (Tylenol) 650 mg PO Q4H PRN PRN Reason: Pain MILD(1-3)/Fever >100.5/FORMAN Acetaminophen (Tylenol) 650 mg PO Q4H PRN PRN Reason: Non Cardiac Pain or Temp>100.5 Aspirin (Baby Aspirin) mg PO DAILY LIZBETH Clopidogrel Bisulfate (Plavix) 75 mg PO QDAY [facility] Miscellaneous Medication (Amlodipine) 10 mg PO DAILY [facility] Miscellaneous Medication (Atorvastatin) 80 mg PO DAILY LIZBETH Miscellaneous Medication (Finasteride) 5 mg PO DAILY LIZBETH Miscellaneous Medication (Tamsulosin) 0.4 mg PO HS [facility] Ondansetron HCl (Zofran) 4 mg IV Q8H PRN PRN Reason: Nausea And Vomiting Sodium Chloride (Sodium Chloride Flush Syringe 10 Ml) 10 ml IV BID LIZBETH Sodium Chloride (Sodium Chloride Flush Syringe 10 Ml) 10 ml IV PRN PRN PRN Reason: LINE FLUSH Triamterene/HCTZ (Maxzide-25) 1 each PO QDAY LIZBETH Review of Systems ROS unobtainable: due to mental status Exam - Constitutional Vitals: Temp Pulse Resp BP Pulse Ox 98.1 F 44 L 19 137/73 99 01/02/19 08:06 01/02/19 10:01 01/02/19 11:15 01/02/19 11:15 01/02/19 11:15 General appearance: Present: well-nourished, other (confused) - EENT Eyes: Present: PERRL ENT: hearing intact, clear oral mucosa - Neck Neck: Present: supple, normal ROM - Respiratory Respiratory effort: normal Respiratory: bilateral: CTA - Cardiovascular Heart Sounds: Present: S1 & S2. Absent: rub, click - Extremities Extremities: pulses symmetrical, No edema Peripheral Pulses: within normal limits - Abdominal General gastrointestinal: Present: soft, non-tender, non-distended, normal bowel sounds - Integumentary Integumentary: Present: clear, warm, dry - Musculoskeletal Musculoskeletal: generalized weakness - Psychiatric Psychiatric: no appropriate mood/affect, no intact judgment & insight - Neurologic Neurologic: moves all extremities, other (unable to follow commend) Results - Labs CBC & Chem 7: 01/02/19 08:05 01/02/19 08:05 Labs: Abnormal lab results 01/02/19 01/02/19 01/02/19 Range/Units 08:05 08:05 08:08 Hct 46.2 H (35.5-45.6) % Lymphocytes % (Manual) 46.0 H (13.4-35.0) % Carbon Dioxide 17 L (22-30) mmol/L Glucose 166 H (75-100) mg/dL POC Glucose 168 H (70-105) - Imaging and Cardiology CT Scan - head: report reviewed Assessment and Plan Acute encephalopathy - likely postictal Acute seizure h/o old CVA HTN, moderately controlled Chronic dysphagia, from prior CVA, on thickened liquid Chronic debility, wheel chair bound DM type 2 h/o BPH - Admit with seizure protocol, continue Keppra IV and Ativan as needed - resume home meds - neuro consult, EEG - supportive care, speech eval - DVt Px
[2019-01-02] MEDS: PLAVIX PO SCH (16:38)
[2019-01-02] MEDS: BABY ASPIRIN PO SCH (16:38)
[2019-01-02] MEDS: NACL 0.9% 1000 ML 1,000 ML IV SCH (16:39)
--- NOTE | 2019-01-02 16:47 | Progress Note ---
Subjective Date of service: 01/02/19 Interval history: the CT of brain showed extensive ischemic vascular disease but nothing acute on the CT these are all chronic changes advise getting MRI and obtain EEG on Thursday will follow up and [facility] EEG the seizure was witnessed in the assisted certainly there is overwhelming [employer] pathology that explains basis for the seizure Objective - Vital Sign Vital Signs - 12hr 01/02/19 01/02/19 01/02/19 07:52 08:01 08:06 Temperature 98.1 F Pulse Rate 111 H 89 Respiratory 14 20 Rate Blood Pressure 167/78 O2 Sat by Pulse 93 Oximetry 01/02/19 01/02/19 01/02/19 08:19 08:30 08:31 Temperature Pulse Rate 85 Respiratory 14 20 Rate Blood Pressure 167/78 100/60 O2 Sat by Pulse 96 99 95 Oximetry 01/02/19 01/02/19 01/02/19 08:45 09:01 09:15 Temperature Pulse Rate Respiratory 18 12 24 Rate Blood Pressure 101/58 167/78 108/55 O2 Sat by Pulse 96 96 97 Oximetry 01/02/19 01/02/19 01/02/19 09:31 09:45 10:01 Temperature Pulse Rate 44 L Respiratory 16 16 24 Rate Blood Pressure 110/61 106/62 106/62 O2 Sat by Pulse 98 99 97 Oximetry 01/02/19 01/02/19 01/02/19 10:15 10:31 10:45 Temperature Pulse Rate Respiratory 14 14 27 H Rate Blood Pressure 144/64 146/95 162/83 O2 Sat by Pulse 98 97 98 Oximetry 01/02/19 01/02/19 11:01 11:15 Temperature Pulse Rate Respiratory 22 19 Rate Blood Pressure 145/77 137/73 O2 Sat by Pulse 99 99 Oximetry - Laboratory Findings CBC and BMP: 01/02/19 08:05 01/02/19 08:05 Abnormal Lab Findings: Abnormal Labs 01/02/19 01/02/19 01/02/19 08:05 08:05 08:08 Hct 46.2 H Lymphocytes % (Manual) 46.0 H Carbon Dioxide 17 L Glucose 166 H POC Glucose 168 H
[2019-01-02] MEDS ORDERED: APRESOLINE IV PRN (17:42)
[2019-01-02] MEDS ORDERED: NON-FORMULARY (Tamsulosin 0.4 MG) PO SCH (22:00)
[2019-01-02] MEDS: FLOMAX PO SCH (22:17)
[2019-01-02] MEDS: SODIUM CHLORIDE FLUSH SYRINGE 10 ML IV SCH (22:19)
[2019-01-02] MEDS: KEPPRA 750 MG in D5W 100 ML IV SCH (22:34)
[2019-01-03] MEDS: NACL 0.9% 1000 ML 1,000 ML IV SCH ×2 (03:43→22:41)
[2019-01-03] MEDS ORDERED: FINASTERIDE 5 MG PO SCH (10:00)
[2019-01-03] MEDS ORDERED: NON-FORMULARY (Amlodipine 10 MG) PO SCH (10:00)
[2019-01-03] MEDS ORDERED: NON-FORMULARY (Atorvastatin 80 MG) PO SCH (10:00)
[2019-01-03] MEDS ORDERED: PROVENTIL IH ONE (10:17)
[2019-01-03] MEDS: PLAVIX PO SCH (10:36)
[2019-01-03] MEDS: MAXZIDE-25 PO SCH (10:36)
[2019-01-03] MEDS: NORVASC PO SCH (10:36)
[2019-01-03] MEDS: PROSCAR PO SCH (10:37)
[2019-01-03] MEDS: BABY ASPIRIN PO SCH (10:37)
[2019-01-03] MEDS: KEPPRA 750 MG in D5W 100 ML IV SCH ×2 (10:37→22:41)
[2019-01-03] MEDS: SODIUM CHLORIDE FLUSH SYRINGE 10 ML IV SCH ×2 (10:38→22:42)
--- NOTE | 2019-01-03 15:11 | Progress Note ---
Assessment and Plan Acute encephalopathy - likely postictal from acute seizure Acute seizure h/o old CVA HTN, moderately controlled Chronic dysphagia, from prior CVA, on thickened liquid and mechanical soft diet Chronic debility, wheel chair bound DM type 2 h/o BPH - Admitted with seizure protocol, continue Keppra IV and Ativan as needed - resumed home meds for HTN - neuro consulted, EEG and MRI ordered - cont supportive care, speech eval - DVt Px Brief History: 68-year-old male with history of multiple CVA in the past with residual generalized weakness on both side, hypertension, hyperlipidemia and diabetes mellitus type 2 [facility] onset of [facility]. Patient received 1 dose of Keppra IV and Ativan in the ER. Patient is wheelchair bound at his baseline and unable to speak full sentences. Patient was getting admitted for further evaluation and management. Subjective Date of service: 01/03/19 Interval history: patient seen and examined No acute event o/n tolerating diet No family at bedside Objective - Exam Narrative Exam: General appearance: Present: well-nourished, other (unable to speak full sentences) - EENT Eyes: Present: PERRL ENT: hearing intact, clear oral mucosa - Neck Neck: Present: supple, normal ROM - Respiratory Respiratory effort: normal Respiratory: bilateral: CTA - Cardiovascular Heart Sounds: Present: S1 & S2. Absent: rub, click - Extremities Extremities: pulses symmetrical, No edema Peripheral Pulses: within normal limits - Abdominal General gastrointestinal: Present: soft, non-tender, non-distended, normal bowel sounds - Integumentary Integumentary: Present: clear, warm, dry - Musculoskeletal Musculoskeletal: generalized weakness - Psychiatric Psychiatric: no appropriate mood/affect, no intact judgment & insight - Neurologic Neurologic: other (unable to follow commend) - Constitutional Vitals: Vital Signs - 12hr 01/03/19 01/03/19 01/03/19 03:31 07:51 10:00 Temperature 97.3 F L 98.1 F Pulse Rate 78 64 Respiratory 20 18 Rate Blood Pressure 155/81 146/81 O2 Sat by Pulse 100 Oximetry 01/03/19 01/03/19 10:36 13:00 Temperature Pulse Rate 78 Respiratory Rate Blood Pressure 146/81 O2 Sat by Pulse 99 Oximetry - Labs CBC & Chem 7: 01/02/19 08:05 01/02/19 08:05 Labs: Abnormal lab results 01/02/19 Range/Units 21:30 POC Glucose 69 L (70-105)
[2019-01-03] MEDS: FLOMAX PO SCH (22:41)
--- NOTE | 2019-01-04 08:21 | Progress Note ---
Subjective Date of service: 01/04/19 Interval history: no additional periods of seizures tests are pending see the radiology department note will recheck later Objective - Vital Sign Vital Signs - 12hr 01/03/19 01/03/19 01/04/19 20:40 23:05 02:00 Temperature 98.5 F Pulse Rate 61 77 Respiratory 20 20 Rate Blood Pressure 124/77 O2 Sat by Pulse 98 98 Oximetry 01/04/19 03:28 Temperature 98.5 F Pulse Rate 71 Respiratory 18 Rate Blood Pressure 152/83 O2 Sat by Pulse 97 Oximetry - Laboratory Findings CBC and BMP: 01/02/19 08:05 01/02/19 08:05 Abnormal Lab Findings: Abnormal Labs 01/02/19 01/02/19 01/02/19 08:05 08:05 08:08 Hct 46.2 H Lymphocytes % (Manual) 46.0 H Carbon Dioxide 17 L Glucose 166 H POC Glucose 168 H 01/02/19 21:30 Hct Lymphocytes % (Manual) Carbon Dioxide Glucose POC Glucose 69 L
[2019-01-04] MEDS: MAXZIDE-25 PO SCH (10:19)
[2019-01-04] MEDS: BABY ASPIRIN PO SCH (10:19)
[2019-01-04] MEDS: PLAVIX PO SCH (10:19)
[2019-01-04] MEDS: PROSCAR PO SCH (10:19)
[2019-01-04] MEDS: KEPPRA 750 MG in D5W 100 ML IV SCH ×2 (10:19→22:47)
--- NOTE | 2019-01-04 10:28 | Magnetic Resonance Report ---
MRI BRAIN WITHOUT CONTRAST INDICATION / CLINICAL INFORMATION: seizure. TECHNIQUE: Multiplanar, multisequence MR images of the brain were obtained. COMPARISON: None available. FINDINGS: BRAIN / INTRACRANIAL CONTENTS: The motion degrades image quality despite repeat imaging and using the fast acquisition sequences. However, there is extensive cerebral white matter disease which is nonsp ecific though appears most compatible with advanced microvascular angiopathy. There are old lacunar i nfarcts involving the cerebral white matter and right elie. The diffusion imaging reveals no clear ev idence of acute infarction. There is mild cerebral atrophy with associated prominence of the ventricular system. There are corres ponding mild atrophic changes of the hippocampus at. However, there is no clear evidence of increase signal on the coronal T2-weighted sequence. CRANIOCERVICAL JUNCTION: No significant abnormality. VASCULAR FLOW-VOIDS: The distal right vertebral artery is not well visualized which may reflect a dev elopmental variant. The left vertebral artery is clearly a dominant. There is relative small caliber of the visualized distal left ICA which may reflect atherosclerotic disease or decreased flow. ORBITS: No significant abnormality of visualized orbits. SINUSES / MASTOIDS: There is extensive mucosal thickening within the ethmoid air cells at. Milder fin dings are noted within the frontal sinuses at. The mastoid air cells are pneumatized. ADDITIONAL FINDINGS: None. IMPRESSION: 1. The motion degrades the image quality. However, there is extensive microvascular angiopathy and ol d small infarcts as a detailed above without evidence of acute infarction. Signer Name: Mark Solares MD Signed: 01/04/2019 10:23 AM Workstation Name: [id number]
[2019-01-04] MEDS: NORVASC PO SCH (11:25)
--- NOTE | 2019-01-04 11:25 | Progress Note ---
Assessment and Plan Assessment and plan: Assessment; --Acute encephalopathy; Secondary to postictal state due to acute seizure Supportive care supportive care seizure precautions , --Acute seizure; no new seizures since admission Seizure precautions, antiepileptic medication, neurology following --h/o old CVA; physical therapy occupational therapy and supportive care --HTN, moderately controlled; Continue current antihypertensives and when necessary medications --Chronic dysphagia; from prior CVA, on thickened liquid and mechanical soft diet Aspiration precautions --Chronic debility, wheel chair bound; physical therapy occupational therapy as needed --DM type 2; Accu-Chek sliding scale coverage and ADA diet insulin as needed --h/o BPH; continue current medications Closely monitor for just the management as needed Brief History: 68-year-old male with history of multiple CVA in the past with residual generalized weakness on both side, hypertension, hyperlipidemia and diabetes mellitus type 2 [facility] with sudden onset of seizure. Patient received 1 dose of Keppra IV and Ativan in the ER. Patient is wheelchair bound at his baseline and unable to speak full sentences. Patient was getting admitted for further evaluation and management. History Interval history: Patient seen and examined medical records reviewed Physical activity but, no new episodes of seizure Vital signs noted Hospitalist Physical - Constitutional Vitals: Temp Pulse Resp BP Pulse Ox 98.5 F 71 20 152/83 98 01/04/19 03:28 01/04/19 03:28 01/04/19 08:00 01/04/19 03:28 01/04/19 08:00 General appearance: Present: well-nourished, other (confused) - EENT Eyes: Present: PERRL, EOM intact - Neck Neck: Present: supple, normal ROM - Respiratory Respiratory effort: normal Respiratory: bilateral: diminished, negative: rales, rhonchi, wheezing - Cardiovascular Rhythm: regular Heart Sounds: Present: S1 & S2 - Extremities Extremities: no ischemia, No edema - Abdominal General gastrointestinal: soft, non-tender, non-distended, normal bowel sounds - Integumentary Integumentary: Present: clear, warm - Psychiatric Psychiatric: cooperative, other (confused at times) - Neurologic Neurologic: moves all extremities Results - Labs CBC & Chem 7: 01/02/19 08:05 01/02/19 08:05 Labs: Laboratory Last Values WBC 7.8 K/mm3 (4.5-11.0) 01/02/19 08:05 RBC 4.89 M/mm3 (3.65-5.03) 01/02/19 08:05 Hgb 14.8 gm/dl (11.8-15.2) 01/02/19 08:05 Hct 46.2 % (35.5-45.6) H 01/02/19 08:05 MCV 94 fl (84-94) 01/02/19 08:05 MCH 30 pg (28-32) 01/02/19 08:05 MCHC 32 % (32-34) 01/02/19 08:05 RDW 14.2 % (13.2-15.2) 01/02/19 08:05 Plt Count 320 K/mm3 (140-440) 01/02/19 08:05 Add Manual Diff Complete 01/02/19 08:05 Total Counted 100 01/02/19 08:05 Seg Neuts % (Manual) 45.0 % (40.0-70.0) 01/02/19 08:05 0 % 01/02/19 08:05 46.0 % (13.4-35.0) H 01/02/19 08:05 Reactive Lymphs % (Man) 0 % 01/02/19 08:05 5.0 % (0.0-7.3) 01/02/19 08:05 3.0 % (0.0-4.3) 01/02/19 08:05 1.0 % (0.0-1.8) 01/02/19 08:05 0 % 01/02/19 08:05 0 % 01/02/19 08:05 0 % 01/02/19 08:05 0 % 01/02/19 08:05 Nucleated RBC % Not Reportable 01/02/19 08:05 Seg Neutrophils # Man 3.5 K/mm3 (1.8-7.7) 01/02/19 08:05 Band Neutrophils # 0.0 K/mm3 01/02/19 08:05 3.6 K/mm3 (1.2-5.4) 01/02/19 08:05 Abs React Lymphs (Man) 0.0 K/mm3 01/02/19 08:05 0.4 K/mm3 (0.0-0.8) 01/02/19 08:05 0.2 K/mm3 (0.0-0.4) 01/02/19 08:05 0.1 K/mm3 (0.0-0.1) 01/02/19 08:05 0.0 K/mm3 01/02/19 08:05 0.0 K/mm3 01/02/19 08:05 0.0 K/mm3 01/02/19 08:05 Blast Cells # 0.0 K/mm3 01/02/19 08:05 WBC Morphology Not Reportable 01/02/19 08:05 Hypersegmented Neuts Not Reportable 01/02/19 08:05 Hyposegmented Neuts Not Reportable 01/02/19 08:05 Hypogranular Neuts Not Reportable 01/02/19 08:05 Not Reportable 01/02/19 08:05 Not Reportable 01/02/19 08:05 Not Reportable 01/02/19 08:05 Not Reportable 01/02/19 08:05 Not Reportable 01/02/19 08:05 Not Reportable 01/02/19 08:05 Consistent w auto 01/02/19 08:05 Not Reportable 01/02/19 08:05 Plt Clumps, EDTA Not Reportable 01/02/19 08:05 Not Reportable 01/02/19 08:05 Not Reportable 01/02/19 08:05 Not Reportable 01/02/19 08:05 Plt Morphology Comment Not Reportable 01/02/19 08:05 RBC Morphology Not Reportable 01/02/19 08:05 Dimorphic RBCs Not Reportable 01/02/19 08:05 Not Reportable 01/02/19 08:05 Not Reportable 01/02/19 08:05 Not Reportable 01/02/19 08:05 1+ 01/02/19 08:05 Not Reportable 01/02/19 08:05 Not Reportable 01/02/19 08:05 Not Reportable 01/02/19 08:05 Not Reportable 01/02/19 08:05 Not Reportable 01/02/19 08:05 Not Reportable 01/02/19 08:05 Not Reportable 01/02/19 08:05 Not Reportable 01/02/19 08:05 Not Reportable 01/02/19 08:05 Not Reportable 01/02/19 08:05 Not Reportable 01/02/19 08:05 Not Reportable 01/02/19 08:05 Not Reportable 01/02/19 08:05 Not Reportable 01/02/19 08:05 Not Reportable 01/02/19 08:05 Acanthocytes (Spur) Not Reportable 01/02/19 08:05 Rouleaux Not Reportable 01/02/19 08:05 Not Reportable 01/02/19 08:05 Not Reportable 01/02/19 08:05 Not Reportable 01/02/19 08:05 Not Reportable 01/02/19 08:05 Hem Pathologist Commnt No 01/02/19 08:05 PT 13.9 Sec. (12.2-14.9) 01/02/19 08:05 INR 1.10 (0.87-1.13) 01/02/19 08:05 APTT 26.9 Sec. (24.2-36.6) 01/02/19 08:05 Sodium 140 mmol/L (137-145) 01/02/19 08:05 Potassium 3.7 mmol/L (3.6-5.0) 01/02/19 08:05 Chloride 99.7 mmol/L (98-107) 01/02/19 08:05 Carbon Dioxide 17 mmol/L (22-30) L 01/02/19 08:05 27 mmol/L 01/02/19 08:05 BUN 10 mg/dL (9-20) 01/02/19 08:05 0.9 mg/dL (0.8-1.5) 01/02/19 08:05 Estimated GFR > 60 ml/min 01/02/19 08:05 11 % 01/02/19 08:05 Glucose 166 mg/dL (75-100) H 01/02/19 08:05 POC Glucose 88 (70-105) 01/03/19 07:58 Calcium 9.5 mg/dL (8.4-10.2) 01/02/19 08:05 0.50 mg/dL (0.1-1.2) 01/02/19 08:05 AST 27 units/L (5-40) 01/02/19 08:05 ALT 27 units/L (7-56) 01/02/19 08:05 96 units/L (35-129) 01/02/19 08:05 < 0.010 ng/mL (0.00-0.029) 01/02/19 08:05 7.5 g/dL (6.3-8.2) 01/02/19 08:05 3.9 g/dL (3.9-5) 01/02/19 08:05 1.1 % 01/02/19 08:05 Yellow (Yellow) 01/02/19 08:39 Clear (Clear) 01/02/19 08:39 6.0 (5.0-7.0) 01/02/19 08:39 Ur Specific [place] 1.016 (1.003-1.030) 01/02/19 08:39 100 mg/dl mg/dL (Negative) 01/02/19 08:39 Neg mg/dL (Negative) 01/02/19 08:39 Neg mg/dL (Negative) 01/02/19 08:39 Sm (Negative) 01/02/19 08:39 Neg (Negative) 01/02/19 08:39 Neg (Negative) 01/02/19 08:39 < 2.0 mg/dL (<2.0) 01/02/19 08:39 Ur Leukocyte Esterase Neg (Negative) 01/02/19 08:39 < 1.0 /HPF (0.0-6.0) 01/02/19 08:39 16.0 /HPF (0.0-6.0) 01/02/19 08:39 U Epithel Cells (Auto) < 1.0 /HPF (0-13.0) 01/02/19 08:39 Few /HPF 01/02/19 08:39 Presumptive negative 01/02/19 08:39 Presumptive negative 01/02/19 08:39 Ur Barbiturates Screen Presumptive negative 01/02/19 08:39 Ur Phencyclidine Scrn Presumptive negative 01/02/19 08:39 Ur Amphetamines Screen Presumptive negative 01/02/19 08:39 U Benzodiazepines Scrn Presumptive negative 01/02/19 08:39 Presumptive negative 01/02/19 08:39 U Marijuana (THC) Screen Presumptive negative 01/02/19 08:39 Disclamer 01/02/19 08:39 Active Medications - Current Medications Current Medications: Generic Name Dose Route Start Last Admin Trade Name Freq PRN Reason Stop Dose Admin Acetaminophen 650 mg 01/02/19 12:48 Tylenol PO Q4H PRN Non Cardiac Pain or Temp>100.5 Amlodipine Besylate 10 mg 01/03/19 10:00 01/03/19 10:36 Norvasc PO 10 mg DAILY LIZBETH Administration Aspirin 81 mg 01/02/19 16:00 01/04/19 10:19 Baby Aspirin PO 81 mg DAILY LIZBETH Administration Atorvastatin Calcium 80 mg 01/02/19 22:00 01/03/19 22:41 Lipitor PO 80 mg QHS LIZBETH Administration Clopidogrel Bisulfate 75 mg 01/02/19 13:00 01/04/19 10:19 Plavix PO 75 mg QDAY LIZBETH Administration Finasteride 5 mg 01/03/19 10:00 01/04/19 10:19 Proscar PO 5 mg QDAY LIZBETH Administration Hydralazine HCl 5 mg 01/02/19 17:42 Apresoline IV Q30MIN PRN Hypertension Levetiracetam 750 mg/ Dextrose 107.5 mls @ 430 mls/hr 01/02/19 22:00 01/04/19 10:19 IV 01/04/19 23:59 430 mls/hr Q12HR LIZBETH Administration Sodium Chloride 1,000 mls @ 100 mls/hr 01/02/19 16:00 01/03/19 22:41 Nacl 0.9% 1000 Ml IV 100 mls/hr DIRECT LIZBETH Administration Levetiracetam 750 mg 01/05/19 10:00 Keppra PO BID LIZBETH Ondansetron HCl 4 mg 01/02/19 10:22 Zofran IV Q8H PRN Nausea And Vomiting Sodium Chloride 10 ml 01/02/19 22:00 01/03/19 22:42 Sodium Chloride Flush Syringe 10 Ml IV 10 ml BID LIZBETH Administration Sodium Chloride 10 ml 01/02/19 10:22 Sodium Chloride Flush Syringe 10 Ml IV PRN PRN LINE FLUSH Tamsulosin HCl 0.4 mg 01/02/19 22:00 01/03/19 22:41 Flomax PO 0.4 mg QHS LIZBETH Administration Triamterene/HCTZ 1 each 01/03/19 10:00 01/04/19 10:19 Maxzide-25 PO 1 each QDAY LIZBETH Administration
[2019-01-04] MEDS: SODIUM CHLORIDE FLUSH SYRINGE 10 ML IV SCH ×2 (11:26→22:47)
--- NOTE | 2019-01-04 14:25 | Discharge Summary ---
Providers - Providers Date of Admission: 01/05/19 16;45 Date of discharge: 01/05/19 Attending physician: NAVNEET GALVEZ 01/02/19 11:24 Speech Therapy Evaluation and Treat [CONS] Routine Reason For Exam: failed swallow 01/02/19 12:59 Consult to Physician [CONS] Routine Comment: Consulting Provider: JAQUELINE ALICEA Physician Instructions: Reason For Exam: seizure Hospitalization Reason for admission: New onset witnessed seizures Condition: Stable Pertinent studies: CT head without contrast; no acute abnormality MRI brain with and without contrast; extensive microvascular angiopathy and spinal infarcts, no evidence of acute infarction Chest x-ray; no acute abnormality noted Hospital course: 68-year-old male with history of multiple CVA in the past with residual generalized weakness on both side, hypertension, hyperlipidemia and diabetes mellitus type 2 [facility]. Patient received 1 dose of Keppra IV and Ativan in the ER. He remained postictal and confused. Patient is wheelchair bound at his baseline and unable to speak full sentences. placed on seizure precautions, managed with antiepileptic medications, evaluated by neurology, CT head without contrast and MRI, negative for acute abnormalities Patient did not have any new episodes of seizure during the hospital stay The patient is comfortable with no new complaints vital signs stable Back to his baseline, physical examination prior to discharge is stable Cleared by neurology for discharge and follow-up urinalysis for scheduled Patient is hemodynamically and clinically stable for discharge Transfer back to [facility]. Case management to assist with discharge planning. Discharge diagnosis; --Acute encephalopathy likely postictal from acute seizure, back to baseline --New onset seizures: Seizure precautions antiepileptic medications Follow-up precautions, no driving --h/o old CVA; with residual weakness --HTN, moderately controlled --Chronic dysphagia, from prior CVA, mechanical soft diet --Chronic debility, wheel chair bound --Mild bradycardia; Will hold Norvasc, closely monitor --DM type 2 --h/o BPH Condition stable at discharge Disposition: DC/[place]-[facility] ANOTHER [facility] Time spent for discharge: 32 min Core Measure Documentation - Palliative Care Palliative Care/ Comfort Measures: Not Applicable - Core Measures Any of the following diagnoses?: none Exam - Constitutional Vitals: Temp Pulse Resp BP Pulse Ox 98.5 F 77 20 154/82 98 01/04/19 03:28 01/04/19 11:25 01/04/19 08:00 01/04/19 11:25 01/04/19 08:00 General appearance: Present: no acute distress, well-nourished - EENT Eyes: Present: PERRL, EOM intact - Neck Neck: Present: supple, normal ROM - Respiratory Respiratory effort: normal Respiratory: bilateral: diminished, negative: rales, rhonchi, wheezing - Cardiovascular Rhythm: regular Heart Sounds: Present: S1 & S2 - Extremities Extremities: no ischemia, No edema - Abdominal General gastrointestinal: Present: soft, non-tender, non-distended, normal bowel sounds Plan Activity: advance as tolerated, no driving until cleared by PCP, fall precautions, other (seizure precautions) Diet: advance as tolerated, other (mechanical soft diet) Additional Instructions: Fall precautions. Seizure precautions. Do not drive. Stop Amlodipine Follow up with: [facility] [Other] - 3-5 Days JAQUELINE ALICEA MD [Staff Physician] - 7 Days MARY LAWSON MD [Referring] - 7 Days Prescriptions: levETIRAcetam [Keppra TAB] 750 mg PO BID #60 tablet
--- NOTE | 2019-01-04 16:28 | Event Note ---
Date: 01/04/19 I called patient's daughter Ms Song at [phone]Burley Paulson[ Patient's exwife ][phone] and discussed in detail patient's condition, treatment plan, the neurologist's recommendations, the reports of CT scan ,MRI and the discharge plans .I also addressed all their questions and concerns. Juliette young's nurse Ms Celestin and Ms Abdulkadir SWARTZ
[2019-01-04] MEDS: FLOMAX PO SCH (22:47)
--- NOTE | 2019-01-05 09:54 | Progress Note ---
Subjective Date of service: 01/05/19 Interval history: did get a personal phone call on my cell phone from Dr. Hilary Osuna physician and case was discussed over the phone details that I am aware of is he was resident at memory Care facility [facility] they are totally not set up to manage his problme at all... discharge will have to be held for that rweason... I called florr nurse... Dr. Osuna provided helpful info I was not herrera of before Thanks n.b. I know Dr. Osuna well Objective - Vital Sign Vital Signs - 12hr 01/04/19 01/04/19 01/05/19 22:00 23:33 04:09 Temperature 98.9 F 97.3 F L Pulse Rate 71 63 42 L Respiratory 20 18 Rate Blood Pressure 141/74 106/58 O2 Sat by Pulse 99 100 Oximetry 01/05/19 01/05/19 01/05/19 06:00 08:00 08:24 Temperature 98.0 F Pulse Rate 50 L 43 L Respiratory 18 18 Rate Blood Pressure 128/58 O2 Sat by Pulse 98 99 Oximetry - Laboratory Findings CBC and BMP: 01/02/19 08:05 01/02/19 08:05 Abnormal Lab Findings: Abnormal Labs 01/02/19 01/02/19 01/02/19 08:05 08:05 08:08 Hct 46.2 H Lymphocytes % (Manual) 46.0 H Carbon Dioxide 17 L Glucose 166 H POC Glucose 168 H 01/02/19 21:30 Hct Lymphocytes % (Manual) Carbon Dioxide Glucose POC Glucose 69 L
[2019-01-05] MEDS ORDERED: KEPPRA PO SCH (10:00)
[2019-01-05] MEDS: BABY ASPIRIN PO SCH (10:43)
[2019-01-05] MEDS: NORVASC PO SCH (10:44)
[2019-01-05] MEDS: PROSCAR PO SCH (10:44)
[2019-01-05] MEDS: MAXZIDE-25 PO SCH (10:44)
[2019-01-05] MEDS: PLAVIX PO SCH (10:44)
[2019-01-05] MEDS: SODIUM CHLORIDE FLUSH SYRINGE 10 ML IV SCH (10:45)
[2019-01-05 16:32] VITALS: BP 118/70
== END 2019-01-05 19:00 | DRG 101 ==
LOC: ED 07:47 → 4A 10:22
PROVIDERS: ADMIT Internal Medicine; ATTEND Internal Medicine
DX: G40.901 Epilepsy, unspecified, not intractable, with status epilepticus (principal); E78.00 Pure hypercholesterolemia, unspecified; R00.1 Bradycardia, unspecified; E11.9 Type 2 diabetes mellitus without complications; R13.10 Dysphagia, unspecified; N40.0 Benign prostatic hyperplasia without lower urinary tract symptoms; Z99.3 Dependence on wheelchair; Z82.3 Family history of stroke; Z79.82 Long term (current) use of aspirin; I69.391 Dysphagia following cerebral infarction; I69.398 Other sequelae of cerebral infarction
CPT/HCPCS: 36415; 70450; 70551; 71045; 80053; 80307; 81001; 82962; 84484; 85007; 85025; 85610; 85730; 87116; 93005; 93010; 95819; G0378; A9270-GY; J1953; J2060; J7030

== ENCOUNTER 2019-01-08 18:01 | Inpatient (IN) | payer MEDICARE ==
--- NOTE | 2019-01-08 18:40 | Emergency Department Report ---
ED General Adult HPI - General Stated complaint: WEAKNESS Time Seen by Provider: 01/08/19 18:13 - History of Present Illness Initial comments: The patient presents to the emergency department with a chief complaint of altered mental status. Per EMS the patient was last over the patella with the skilled nursing was concerned them thus leading to them calling 911. The patient has dementia so times history is hard to obtain but the patient states that he j ust felt tired and was trying to rest. -: Sudden Consistency: now resolved Improves with: none Worsens with: none Associated Symptoms: denies other symptoms Treatments Prior to Arrival: none - Related Data Home Medications Medication Instructions Recorded Confirmed Last Taken Aspirin [Aspirin BABY CHEW TAB] 1 tab PO DAILY 04/14/13 01/08/19 Unknown Triamter/Hctz 37.5-25 mg 1 tab PO QDAY 04/14/13 01/08/19 Unknown [Maxzide-25] AtorvaSTATin 80 mg PO DAILY 07/08/18 01/08/19 Unknown Finasteride 5 mg PO DAILY 07/08/18 01/08/19 Unknown Tamsulosin 0.4 mg PO HS 07/08/18 01/08/19 Unknown amLODIPine [Norvasc] 10 mg PO DAILY 01/08/19 01/08/19 Unknown Previous Rx's Medication Instructions Recorded Last Taken Type Clopidogrel [Plavix] 75 mg PO QDAY #30 tablet 04/18/13 Unknown Rx Acetaminophen [Acetaminophen TAB] 650 mg PO Q4H PRN #15 tablet 07/10/18 Unknown Rx levETIRAcetam [Keppra TAB] 750 mg PO BID #60 tablet 01/04/19 Unknown Rx Allergies Allergy/AdvReac Type Severity Reaction Status Date / Time No Known Allergies Allergy Unverified 04/14/13 15:08 ED Review of Systems ROS: Stated complaint: WEAKNESS Other details as noted in HPI Comment: All other systems reviewed and negative Constitutional: denies: chills, fever Eyes: denies: eye pain, eye discharge, vision change ENT: denies: ear pain, throat pain Respiratory: denies: cough, shortness of breath, wheezing Cardiovascular: denies: chest pain, palpitations Endocrine: no symptoms reported Gastrointestinal: denies: abdominal pain, nausea, diarrhea Genitourinary: denies: urgency, dysuria Musculoskeletal: denies: back pain, joint swelling, arthralgia Skin: denies: rash, lesions Neurological: denies: headache, weakness, paresthesias Psychiatric: denies: anxiety, depression Hematological/Lymphatic: denies: easy bleeding, easy bruising ED Past Medical Hx - Past Medical History Hx Hypertension: Yes Hx CVA: Yes (1991) Hx Congestive Heart Failure: No Hx Diabetes: Yes Hx Arthritis: Yes Hx Asthma: No Hx COPD: No Hx Dementia: Yes Hx HIV: No Additional medical history: high cholesterol - Surgical History Additional Surgical History: cva 1989 - Social History Smoking Status: Unknown if ever smoked - Medications Home Medications: Home Medications Medication Instructions Recorded Confirmed Last Taken Type Aspirin [Aspirin BABY CHEW TAB] 1 tab PO DAILY 04/14/13 01/08/19 Unknown History Triamter/Hctz 37.5-25 mg 1 tab PO QDAY 04/14/13 01/08/19 Unknown History [Maxzide-25] Clopidogrel [Plavix] 75 mg PO QDAY #30 tablet 04/18/13 01/08/19 Unknown Rx AtorvaSTATin 80 mg PO DAILY 07/08/18 01/08/19 Unknown History Finasteride 5 mg PO DAILY 07/08/18 01/08/19 Unknown History Tamsulosin 0.4 mg PO HS 07/08/18 01/08/19 Unknown History Acetaminophen [Acetaminophen TAB] 650 mg PO Q4H PRN #15 tablet 07/10/18 01/08/19 Unknown Rx levETIRAcetam [Keppra TAB] 750 mg PO BID #60 tablet 01/04/19 01/08/19 Unknown Rx amLODIPine [Norvasc] 10 mg PO DAILY 01/08/19 01/08/19 Unknown History ED Physical Exam - General General appearance: alert, in no apparent distress - Head Head exam: Present: atraumatic, normocephalic - Eye Eye exam: Present: normal appearance, PERRL, EOMI - ENT ENT exam: Present: mucous membranes moist - Neck Neck exam: Present: normal inspection - Respiratory Respiratory exam: Present: normal lung sounds bilaterally. Absent: respiratory distress - Cardiovascular Cardiovascular Exam: Present: regular rate, normal rhythm. Absent: systolic murmur, diastolic murmur, rubs, gallop - GI/Abdominal GI/Abdominal exam: Present: soft, normal bowel sounds. Absent: distended, tende rness - Rectal Rectal exam: Present: deferred - Extremities Exam Extremities exam: Present: normal inspection - Back Exam Back exam: Present: normal inspection - Neurological Exam Neurological exam: Present: alert, other (not able to complete neurological exam due to the patient's dementia) - Psychiatric Psychiatric exam: Present: normal affect, normal mood - Skin Skin exam: Present: warm, dry, intact, normal color. Absent: rash ED Course Vital Signs 01/08/19 01/08/19 01/08/19 18:38 18:46 18:51 Temperature 100.5 F H Pulse Rate 88 84 Respiratory 23 22 Rate Blood Pressure 146/83 Blood Pressure 146/83 [Left] O2 Sat by Pulse 97 97 Oximetry 01/08/19 19:58 Temperature 99.7 F H Pulse Rate 91 H Respiratory 20 Rate Blood Pressure Blood Pressure 150/86 [Left] O2 Sat by Pulse 98 Oximetry ED Medical Decision Making - Lab Data Result diagrams: 01/08/19 18:52 01/08/19 18:52 Lab Results 01/08/19 01/08/19 01/08/19 Range/Units 18:30 18:52 18:52 WBC 11.6 H (4.5-11.0) K/mm3 RBC 5.20 H (3.65-5.03) M/mm3 Hgb 15.7 H (11.8-15.2) gm/dl Hct 47.7 H (35.5-45.6) % MCV 92 (84-94) fl MCH 30 (28-32) pg MCHC 33 (32-34) % RDW 14.1 (13.2-15.2) % Plt Count 296 (140-440) K/mm3 Lymph % (Auto) 10.5 L (13.4-35.0) % Coles % (Auto) 10.8 H (0.0-7.3) % Eos % (Auto) 0.4 (0.0-4.3) % Baso % (Auto) 0.4 (0.0-1.8) % Lymph # 1.2 (1.2-5.4) K/mm3 Coles # 1.3 H (0.0-0.8) K/mm3 Eos # 0.0 (0.0-0.4) K/mm3 Baso # 0.0 (0.0-0.1) K/mm3 Seg Neutrophils % 77.9 H (40.0-70.0) % Seg Neutrophils # 9.0 H (1.8-7.7) K/mm3 PT 14.3 (12.2-14.9) Sec. INR 1.14 H (0.87-1.13) APTT 29.7 (24.2-36.6) Sec. Sodium (137-145) mmol/L Potassium (3.6-5.0) mmol/L Chloride (98-107) mmol/L Carbon Dioxide (22-30) mmol/L Anion Gap mmol/L BUN (9-20) mg/dL Creatinine (0.8-1.5) mg/dL Estimated GFR ml/min BUN/Creatinine Ratio % Glucose (75-100) mg/dL Lactic Acid (0.7-2.0) mmol/L Calcium (8.4-10.2) mg/dL Total Bilirubin (0.1-1.2) mg/dL AST (5-40) units/L ALT (7-56) units/L Alkaline Phosphatase (35-129) units/L Ammonia (25-60) umol/L Troponin T (0.00-0.029) ng/mL Total Protein (6.3-8.2) g/dL Albumin (3.9-5) g/dL Albumin/Globulin Ratio % Urine Color Yellow (Yellow) Urine Turbidity Slightly-cloudy (Clear) Urine pH 5.0 (5.0-7.0) Ur Specific [place] 1.015 (1.003-1.030) Urine Protein <15 mg/dl (Negative) mg/dL Urine Glucose (UA) Neg (Negative) mg/dL Urine Ketones Neg (Negative) mg/dL Urine Blood Mod (Negative) Urine Nitrite Pos (Negative) Urine Bilirubin Neg (Negative) Urine Urobilinogen 4.0 (<2.0) mg/dL Ur Leukocyte Esterase Sm (Negative) Urine WBC (Auto) 39.0 H (0.0-6.0) /HPF Urine RBC (Auto) 23.0 (0.0-6.0) /HPF Urine Mucus 3+ /HPF Salicylates (2.8-20.0) mg/dL Acetaminophen (10.0-30.0) ug/mL 01/08/19 01/08/19 01/08/19 Range/Units 18:52 18:52 18:52 WBC (4.5-11.0) K/mm3 RBC (3.65-5.03) M/mm3 Hgb (11.8-15.2) gm/dl Hct (35.5-45.6) % MCV (84-94) fl MCH (28-32) pg MCHC (32-34) % RDW (13.2-15.2) % Plt Count (140-440) K/mm3 Lymph % (Auto) (13.4-35.0) % Coles % (Auto) (0.0-7.3) % Eos % (Auto) (0.0-4.3) % Baso % (Auto) (0.0-1.8) % Lymph # (1.2-5.4) K/mm3 Coles # (0.0-0.8) K/mm3 Eos # (0.0-0.4) K/mm3 Baso # (0.0-0.1) K/mm3 Seg Neutrophils % (40.0-70.0) % Seg Neutrophils # (1.8-7.7) K/mm3 PT (12.2-14.9) Sec. INR (0.87-1.13) APTT (24.2-36.6) Sec. Sodium 142 (137-145) mmol/L Potassium 3.8 (3.6-5.0) mmol/L Chloride 101.3 (98-107) mmol/L Carbon Dioxide 28 (22-30) mmol/L Anion Gap 17 mmol/L BUN 10 (9-20) mg/dL Creatinine 1.0 (0.8-1.5) mg/dL Estimated GFR > 60 ml/min BUN/Creatinine Ratio 10 % Glucose 173 H (75-100) mg/dL Lactic Acid 2.10 H* (0.7-2.0) mmol/L Calcium 9.9 (8.4-10.2) mg/dL Total Bilirubin 0.50 (0.1-1.2) mg/dL AST 20 (5-40) units/L ALT 19 (7-56) units/L Alkaline Phosphatase 99 (35-129) units/L Ammonia (25-60) umol/L Troponin T < 0.010 (0.00-0.029) ng/mL Total Protein 6.7 (6.3-8.2) g/dL Albumin 3.8 L (3.9-5) g/dL Albumin/Globulin Ratio 1.3 % Urine Color (Yellow) Urine Turbidity (Clear) Urine pH (5.0-7.0) Ur Specific [place] (1.003-1.030) Urine Protein (Negative) mg/dL Urine Glucose (UA) (Negative) mg/dL Urine Ketones (Negative) mg/dL Urine Blood (Negative) Urine Nitrite (Negative) Urine Bilirubin (Negative) Urine Urobilinogen (<2.0) mg/dL Ur Leukocyte Esterase (Negative) Urine WBC (Auto) (0.0-6.0) /HPF Urine RBC (Auto) (0.0-6.0) /HPF Urine Mucus /HPF Salicylates < 0.3 L (2.8-20.0) mg/dL Acetaminophen (10.0-30.0) ug/mL 01/08/19 01/08/19 Range/Units 18:52 18:52 WBC (4.5-11.0) K/mm3 RBC (3.65-5.03) M/mm3 Hgb (11.8-15.2) gm/dl Hct (35.5-45.6) % MCV (84-94) fl MCH (28-32) pg MCHC (32-34) % RDW (13.2-15.2) % Plt Count (140-440) K/mm3 Lymph % (Auto) (13.4-35.0) % Coles % (Auto) (0.0-7.3) % Eos % (Auto) (0.0-4.3) % Baso % (Auto) (0.0-1.8) % Lymph # (1.2-5.4) K/mm3 Coles # (0.0-0.8) K/mm3 Eos # (0.0-0.4) K/mm3 Baso # (0.0-0.1) K/mm3 Seg Neutrophils % (40.0-70.0) % Seg Neutrophils # (1.8-7.7) K/mm3 PT (12.2-14.9) Sec. INR (0.87-1.13) APTT (24.2-36.6) Sec. Sodium (137-145) mmol/L Potassium (3.6-5.0) mmol/L Chloride (98-107) mmol/L Carbon Dioxide (22-30) mmol/L Anion Gap mmol/L BUN (9-20) mg/dL Creatinine (0.8-1.5) mg/dL Estimated GFR ml/min BUN/Creatinine Ratio % Glucose (75-100) mg/dL Lactic Acid (0.7-2.0) mmol/L Calcium (8.4-10.2) mg/dL Total Bilirubin (0.1-1.2) mg/dL AST (5-40) units/L ALT (7-56) units/L Alkaline Phosphatase (35-129) units/L Ammonia 31.0 (25-60) umol/L Troponin T (0.00-0.029) ng/mL Total Protein (6.3-8.2) g/dL Albumin (3.9-5) g/dL Albumin/Globulin Ratio % Urine Color (Yellow) Urine Turbidity (Clear) Urine pH (5.0-7.0) Ur Specific [place] (1.003-1.030) Urine Protein (Negative) mg/dL Urine Glucose (UA) (Negative) mg/dL Urine Ketones (Negative) mg/dL Urine Blood (Negative) Urine Nitrite (Negative) Urine Bilirubin (Negative) Urine Urobilinogen (<2.0) mg/dL Ur Leukocyte Esterase (Negative) Urine WBC (Auto) (0.0-6.0) /HPF Urine RBC (Auto) (0.0-6.0) /HPF Urine Mucus /HPF Salicylates (2.8-20.0) mg/dL Acetaminophen < 5.0 L (10.0-30.0) ug/mL - EKG Data -: EKG Interpreted by Nh EKG shows normal: sinus rhythm Rate: normal - Radiology Data Radiology results: report reviewed - Medical Decision Making IV fluids and antibiotics given Critical Care Time: Yes Critical care time in (mins) excluding proc time.: 35 Critical care attestation.: If time is entered above; I have spent that time in minutes in the direct care of this critically ill patient, excluding procedure time. ED Disposition Clinical Impression: Sepsis, UTI (urinary tract infection), Altered mental status Disposition: DC-09 OP ADMIT IP TO THIS HOSP Is pt being admited?: Yes Does the pt Need Aspirin: Yes Condition: Fair Referrals: PRIMARY CARE, [Primary Care Provider] - 3-5 Days - Assessment Assessment Interval: Baseline - Level of Consciousness 1a. Level of Consciousness: arousable/minor stimuli - LOC Questions 1b. LOC Questions: answers no questions correctly - LOC Command 1c. LOC Commands: performs tasks correctly - Best Gaze 2. Best Gaze: normal - Visual 3. Visual: no visual loss - Facial Palsy 4. Facial Palsy: normal symmetrical movement - Motor Arm 5a. Motor Arm Left: no drift 5b. Motor Arm Right: no drift - Motor Leg 6a. Motor Leg Left: no drift 6b. Motor Leg Right: no drift - Limb Ataxia 7. Limb Ataxia: absent - Sensory 8. Sensory: normal - Best Language 9. Best Language: no aphasia - Dysarthria 10. Dysarthria: normal - Extinction and Inattention 11. Extinction/Inattention: no abnormality - Scoring Total Score: 3 Stroke Severity: Minor Stroke
[2019-01-08] MEDS ORDERED: MAXIPIME/NS 2 GM/100 ML 2 GM/100 ML BAG IV ONE (18:56)
[2019-01-08 19:10] LABS: Basophils % (Auto) 0.4 % (0.0-1.8); Eosinophils % (Auto) 0.4 % (0.0-4.3); Hematocrit 47.7 % (35.5-45.6); Hemoglobin 15.7 gm/dl (11.8-15.2); Lymphocytes # (Auto) 1.2 K/mm3 (1.2-5.4); Lymphocytes % (Auto) 10.5 % (13.4-35.0); Mean Corpuscular HGB Conc 33 % (32-34); Mean Corpuscular Volume 92 fl (84-94); Monocytes # (Auto) 1.3 K/mm3 (0.0-0.8); Monocytes % (Auto) 10.8 % (0.0-7.3); Platelet Count 296 K/mm3 (140-440); Red Cell Distribution Width 14.1 % (13.2-15.2)
[2019-01-08 19:22] LABS: Bilirubin,Urine NEG (Negative); Blood,Urine MOD (Negative); Color,Urine Yellow (Yellow); Mucus,Urine 3+ /HPF; Protein,Urine <15 mg/dL mg/dL (Negative)
[2019-01-08 19:24] LABS: INR 1.14 (0.87-1.13)
[2019-01-08 19:25] LABS: Partial Thromboplastin Time 29.7 Sec. (24.2-36.6)
[2019-01-08 19:31] LABS: Alanine Aminotransferase 19 units/L (7-56); Albumin 3.8 g/dL (3.9-5); BUN/Creatinine Ratio 10; Blood Urea Nitrogen 10 mg/dL (9-20); Calcium 9.9 mg/dL (8.4-10.2); Hemolysis Index 25
--- NOTE | 2019-01-08 19:32 | XRay Report ---
CHEST 1 VIEW INDICATION / CLINICAL INFORMATION: Altered Mental Status. COMPARISON: 01/02/2019 FINDINGS: SUPPORT DEVICES: None. HEART / MEDIASTINUM: No significant abnormality. LUNGS / PLEURA: No significant pulmonary or pleural abnormality. No pneumothorax. ADDITIONAL FINDINGS: No significant additional findings. IMPRESSION: 1. No acute findings. Signer Name: Thierno Augustin MD Signed: 01/08/2019 7:27 PM Workstation Name: [id number]
[2019-01-08] MEDS ORDERED: NACL 0.9% 1000 ML 2,500 ML IV ONE (19:44)
--- NOTE | 2019-01-08 20:24 | Cat Scan Report ---
Head CT without intravenous contrast INDICATION: Altered mental status COMPARISON: 01/02/2019 FINDINGS: The ventricles are normal in size and position. No hemorrhage or extra-axial fluid collecti on. No edema or mass effect. No recent infarct seen. Portions of the sinuses visualized are clear exc ept for mild mucosal thickening of the ethmoid air cells.. No skull fracture identified. Periventricu lar white matter low-attenuation is unchanged. A few old small lacunar infarcts are seen. No new abno rmality. IMPRESSION: Negative head CT. No interval change. Automated exposure control was utilized to diminish radiation dose Signer Name: Thierno Augustin MD Signed: 01/08/2019 8:19 PM Workstation Name: [id number]
[2019-01-08] MEDS ORDERED: ASPIRIN PR ONE (20:34)
[2019-01-08] MEDS ORDERED: TYLENOL PO PRN (21:04)
[2019-01-08] MEDS ORDERED: SODIUM CHLORIDE FLUSH SYRINGE 10 ML IV PRN (21:04)
[2019-01-08] MEDS ORDERED: ZOFRAN IV PRN (21:04)
--- NOTE | 2019-01-08 21:49 | History and Physical Report ---
<KEYSHA WOLF - Last Filed: 01/08/19 22:11> History of Present Illness Date of examination: 01/08/19 Date of admission: 01/08/2019 Chief complaint: Altered mental status, weakness History of present illness: 69-year-old -[place] female who is a [facility] resident with history of CVA, DM 2, HTN, HLD, chronic dysphasia, severe debility, and newly diagnosed seizure disorder who presents [facility] ED via EMS with complaints of altered mental status. Patient's and sister is present at bedside. Patient is a poor historian history is provided by patient's family members and medical records. According to [facility] staff patient was having lunch and was noted to be slumped over the table. Staff attempted to adjust patient and he fell back over his second time. [facility] staff checked vital signs and decided to call EMS for transport to ED for further evaluation. Patient was questioned about his overall health status stated he was feeling tired and trying to rest. Past History Past Medical History: arthritis, CAD, diabetes (type 2), hypertension, hyperlipidemia, seizures, stroke (1992 bilateral residual deficits), other (severe debility, wheelchair bound, dementia, BPH, dysphagia) Past Surgical History: Other (skin graft surgery) Social history: lives with family (lives in [facility]) Family history: no significant family history Medications and Allergies Allergies Allergy/AdvReac Type Severity Reaction Status Date / Time No Known Allergies Allergy Unverified 04/14/13 15:08 Home Medications Medication Instructions Recorded Confirmed Last Taken Type Aspirin [Aspirin BABY CHEW TAB] 1 tab PO DAILY 04/14/13 01/08/19 Unknown History Triamter/Hctz 37.5-25 mg 1 tab PO QDAY 04/14/13 01/08/19 Unknown History [Maxzide-25] Clopidogrel [Plavix] 75 mg PO QDAY #30 tablet 04/18/13 01/08/19 Unknown Rx AtorvaSTATin 80 mg PO DAILY 07/08/18 01/08/19 Unknown History Finasteride 5 mg PO DAILY 07/08/18 01/08/19 Unknown History Tamsulosin 0.4 mg PO HS 07/08/18 01/08/19 Unknown History Acetaminophen [Acetaminophen TAB] 650 mg PO Q4H PRN #15 tablet 07/10/18 01/08/19 Unknown Rx levETIRAcetam [Keppra TAB] 750 mg PO BID #60 tablet 01/04/19 01/08/19 Unknown Rx amLODIPine [Norvasc] 10 mg PO DAILY 01/08/19 01/08/19 Unknown History Active Meds: Active Medications Acetaminophen (Tylenol) 650 mg PO Q4H PRN PRN Reason: Pain MILD(1-3)/Fever >100.5/FORMAN Amlodipine Besylate (Norvasc) 10 mg PO DAILY COUNT INCLUDES THE [facility] Aspirin (Baby Aspirin) 81 mg PO DAILY COUNT INCLUDES THE [facility] Atorvastatin Calcium (Lipitor) 80 mg PO DAILY COUNT INCLUDES THE [facility] Clopidogrel Bisulfate (Plavix) 75 mg PO QDAY COUNT INCLUDES THE [facility] Docusate Sodium (Colace) 100 mg PO BID COUNT INCLUDES THE [facility] Finasteride (Proscar) 5 mg PO QDAY COUNT INCLUDES THE [facility] Sodium Chloride (Nacl 0.9% 1000 Ml) 2,500 mls @ 999 mls/hr IV BOLUS ONE Stop: 01/08/19 22:14 Last Admin: 01/08/19 20:02 Dose: 999 mls/hr Documented by: Sodium Chloride (Nacl 0.9% 1000 Ml) 1,000 mls @ 75 mls/hr IV DIRECT LIZBETH Ceftriaxone Sodium (Rocephin/Ns 1 Gm/50 Ml) 1 gm in 50 mls @ 100 mls/hr IV Q24HR LIZBETH; Protocol Levetiracetam (Keppra) 750 mg PO BID COUNT INCLUDES THE [facility] Ondansetron HCl (Zofran) 4 mg IV Q8H PRN PRN Reason: Nausea And Vomiting Sodium Chloride (Sodium Chloride Flush Syringe 10 Ml) 10 ml IV BID COUNT INCLUDES THE [facility] Sodium Chloride (Sodium Chloride Flush Syringe 10 Ml) 10 ml IV PRN PRN PRN Reason: LINE FLUSH Tamsulosin HCl (Flomax) 0.4 mg PO QHS COUNT INCLUDES THE [facility] Triamterene/HCTZ (Maxzide-25) 1 each PO QDAY COUNT INCLUDES THE [facility] Review of Systems Constitutional: fatigue, weakness Exam - Physical Exam Narrative exam: Physical exam General appearance: Present: No acute distress, awake, oriented 2, well- developed, older adult -[place] male - EENT Eyes: Present: PERRL, EOM intact ENT: hearing intact, missing teeth - Neck Neck: Present: supple, normal ROM - Respiratory Respiratory effort: Non-labored Respiratory: Coarse breath sounds upper lobes with diminished bases - Cardiovascular Heart rate: 90 (bpm) Rhythm: SR Heart Sounds: Present: S1 & S2. Absent: rub, click - Extremities Extremities: no ischemia, pulses intact, abnormal (skin graft scar to right lower extremity) - Peripheral Assessment Peripheral Pulses: within normal limits - Abdominal General gastrointestinal: soft, non-tender, normal bowel sounds - Integumentary Integumentary: Present: warm, dry - Musculoskeletal Musculoskeletal: generalized weakness, flaccid bilateral lower extremity, bilateral residual weakness - Psychiatric Psychiatric: Withdrawn, cooperative - Constitutional Vitals: Temp Pulse Resp BP Pulse Ox 99.7 F H 91 H 20 150/86 98 01/08/19 19:58 01/08/19 19:58 01/08/19 19:58 01/08/19 19:58 01/08/19 19:58 Results - Labs CBC & Chem 7: 01/08/19 18:52 01/08/19 18:52 Labs: Laboratory Last Values WBC 11.6 K/mm3 (4.5-11.0) H 01/08/19 18:52 RBC 5.20 M/mm3 (3.65-5.03) H 01/08/19 18:52 Hgb 15.7 gm/dl (11.8-15.2) H 01/08/19 18:52 Hct 47.7 % (35.5-45.6) H 01/08/19 18:52 MCV 92 fl (84-94) 01/08/19 18:52 MCH 30 pg (28-32) 01/08/19 18:52 MCHC 33 % (32-34) 01/08/19 18:52 RDW 14.1 % (13.2-15.2) 01/08/19 18:52 Plt Count 296 K/mm3 (140-440) 01/08/19 18:52 Lymph % (Auto) 10.5 % (13.4-35.0) L 01/08/19 18:52 Bibb % (Auto) 10.8 % (0.0-7.3) H 01/08/19 18:52 Eos % (Auto) 0.4 % (0.0-4.3) 01/08/19 18:52 Baso % (Auto) 0.4 % (0.0-1.8) 01/08/19 18:52 Lymph # 1.2 K/mm3 (1.2-5.4) 01/08/19 18:52 Bibb # 1.3 K/mm3 (0.0-0.8) H 01/08/19 18:52 Eos # 0.0 K/mm3 (0.0-0.4) 01/08/19 18:52 Baso # 0.0 K/mm3 (0.0-0.1) 01/08/19 18:52 Seg Neutrophils % 77.9 % (40.0-70.0) H 01/08/19 18:52 Seg Neutrophils # 9.0 K/mm3 (1.8-7.7) H 01/08/19 18:52 PT 14.3 Sec. (12.2-14.9) 01/08/19 18:52 INR 1.14 (0.87-1.13) H 01/08/19 18:52 APTT 29.7 Sec. (24.2-36.6) 01/08/19 18:52 Sodium 142 mmol/L (137-145) 01/08/19 18:52 Potassium 3.8 mmol/L (3.6-5.0) 01/08/19 18:52 Chloride 101.3 mmol/L (98-107) 01/08/19 18:52 Carbon Dioxide 28 mmol/L (22-30) 01/08/19 18:52 17 mmol/L 01/08/19 18:52 BUN 10 mg/dL (9-20) 01/08/19 18:52 1.0 mg/dL (0.8-1.5) 01/08/19 18:52 Estimated GFR > 60 ml/min 01/08/19 18:52 10 % 01/08/19 18:52 Glucose 173 mg/dL (75-100) H 01/08/19 18:52 Lactic Acid 2.10 mmol/L (0.7-2.0) H* 01/08/19 18:52 Calcium 9.9 mg/dL (8.4-10.2) 01/08/19 18:52 0.50 mg/dL (0.1-1.2) 01/08/19 18:52 AST 20 units/L (5-40) 01/08/19 18:52 ALT 19 units/L (7-56) 01/08/19 18:52 99 units/L (35-129) 01/08/19 18:52 31.0 umol/L (25-60) 01/08/19 18:52 < 0.010 ng/mL (0.00-0.029) 01/08/19 18:52 6.7 g/dL (6.3-8.2) 01/08/19 18:52 3.8 g/dL (3.9-5) L 01/08/19 18:52 1.3 % 01/08/19 18:52 Yellow (Yellow) 01/08/19 18:30 Slightly-cloudy (Clear) 01/08/19 18:30 5.0 (5.0-7.0) 01/08/19 18:30 Ur Specific [place] 1.015 (1.003-1.030) 01/08/19 18:30 <15 mg/dl mg/dL (Negative) 01/08/19 18:30 Neg mg/dL (Negative) 01/08/19 18:30 Neg mg/dL (Negative) 01/08/19 18:30 Mod (Negative) 01/08/19 18:30 Pos (Negative) 01/08/19 18:30 Neg (Negative) 01/08/19 18:30 4.0 mg/dL (<2.0) 01/08/19 18:30 Ur Leukocyte Esterase Sm (Negative) 01/08/19 18:30 39.0 /HPF (0.0-6.0) H 01/08/19 18:30 23.0 /HPF (0.0-6.0) 01/08/19 18:30 3+ /HPF 01/08/19 18:30 Salicylates < 0.3 mg/dL (2.8-20.0) L 01/08/19 18:52 Acetaminophen < 5.0 ug/mL (10.0-30.0) L 01/08/19 18:52 - Imaging and Cardiology EKG: image reviewed (SR 90bpm) Chest x-ray: report reviewed (LUNGS / PLEURA: No significant pulmonary or pleural abnormality. No pneumothorax. ), image reviewed Imaging and Cardiology: CT Head: FINDINGS: The ventricles are normal in size and position. No hemorrhage or extra-axial fluid collection. No edema or mass effect. No recent infarct seen. Portions of the sinuses visualized are clear except for mild mucosal thickening of the ethmoid air cells.. No skull fracture identified. Periventricular white matter low-attenuation is unchanged. A few old small lacunar infarcts are seen. No new abnormality. IMPRESSION: Negative head CT. No interval change. Assessment and Plan Assessment and plan: 69-year-old -[place] female who is a [facility] resident with history of CVA, DM 2, HTN, HLD, chronic dysphasia, severe debility, and newly diagnosed seizure disorder who presents [facility] ED via EMS with complaints of altered mental status. 1. Sepsis -Leukocytosis, WBC 11.6 -Respiratory rate 23 -Heart rate 91 -Blood cultures pending -Start IV hydration and IV antibiotics -Monitor CBC 2. UTI -Urine WBC 39 point -Urine culture pending - Start ceftriaxone 1 g every 24 hours 3. Lactic Acidosis -Lactic acid on admission 2.10 -Continue to monitor lactic acid -Continue hydration with IVF 4. Acute encephalopathy -Likely multifactorial to sepsis and UTI -Neuro checks every shift 5. Hypertension -Monitor BP -Continue home antihypertensive meds to optimize BP -Low salt diet 6. Hyperlipidemia -Continue home Lipitor 80 mg daily -Cardiac diet 7. Chronic dysphasia -Swallow eval pending -Mechanical soft diet with nectar thickened liquids 8.DM2 -POC BG monitoring -SSI coverage -HgbA1C pending 9. History of CVA -Bilateral residual weakness 10. Severe debility -Wheelchair-bound at baseline -Bilateral residual weakness -PT/OT consult pending 11. Coronary artery disease -Continue Plavix and aspirin therapy 12. History of BPH -Continue finasteride and Flomax 13. Seizure disorder -recently diagnosed 01/02/19 -Continue Keppra 750 mg twice a day -Initiate seizure precautions 14. DVT PPX -Anticoagulated on Plavix -On SCDs Advance Directives: No VTE prophylaxis?: Chemical Plan of care discussed with patient/family: Yes <TORI ROSS - Last Filed: 01/09/19 06:54> History of Present Illness Date of admission: 01/08/19 21:04 Medications and Allergies Active Meds: Active Medications Acetaminophen (Tylenol) 650 mg PO Q4H PRN PRN Reason: Pain MILD(1-3)/Fever >100.5/FORMAN Amlodipine Besylate (Norvasc) 10 mg PO DAILY LIZBETH Atorvastatin Calcium (Lipitor) 80 mg PO DAILY LIZBETH Dextrose (D50w (25gm) Syringe) 50 ml IV PRN PRN PRN Reason: Hypoglycemia Docusate Sodium (Colace) 100 mg PO BID COUNT INCLUDES THE [facility] Last Admin: 01/08/19 23:46 Dose: Not Given Documented by: Finasteride (Proscar) 5 mg PO QDAY COUNT INCLUDES THE [facility] Sodium Chloride (Nacl 0.9% 1000 Ml) 1,000 mls @ 75 mls/hr IV DIRECT LIZBETH Ceftriaxone Sodium (Rocephin/Ns 1 Gm/50 Ml) 1 gm in 50 mls @ 100 mls/hr IV Q24HR COUNT INCLUDES THE [facility]; Protocol Insulin Human Regular (Humulin R) 0 units SUB-Q ACHS COUNT INCLUDES THE [facility]; Protocol Levetiracetam (Keppra) 750 mg PO BID COUNT INCLUDES THE [facility] Ondansetron HCl (Zofran) 4 mg IV Q8H PRN PRN Reason: Nausea And Vomiting Sodium Chloride (Sodium Chloride Flush Syringe 10 Ml) 10 ml IV BID COUNT INCLUDES THE [facility] Sodium Chloride (Sodium Chloride Flush Syringe 10 Ml) 10 ml IV PRN PRN PRN Reason: LINE FLUSH Tamsulosin HCl (Flomax) 0.4 mg PO QHS COUNT INCLUDES THE [facility] Last Admin: 01/08/19 23:46 Dose: Not Given Documented by: Triamterene/HCTZ (Maxzide-25) 1 each PO QDAY COUNT INCLUDES THE [facility] Exam - Constitutional Vitals: Temp Pulse Resp BP Pulse Ox 99.9 F H 87 18 135/61 99 01/08/19 22:00 01/08/19 22:00 01/08/19 22:00 01/08/19 22:00 01/08/19 22:00 Results - Labs CBC & Chem 7: 01/09/19 04:30 01/09/19 04:30 Labs: Laboratory Last Values WBC 13.0 K/mm3 (4.5-11.0) H 01/08/19 23:37 RBC 4.45 M/mm3 (3.65-5.03) 01/08/19 23:37 Hgb 13.5 gm/dl (11.8-15.2) 01/08/19 23:37 Hct 47.7 % (35.5-45.6) H 01/08/19 18:52 MCV 92 fl (84-94) 01/08/19 23:37 MCH 30 pg (28-32) 01/08/19 23:37 MCHC 33 % (32-34) 01/08/19 23:37 RDW 14.0 % (13.2-15.2) 01/08/19 23:37 Plt Count 262 K/mm3 (140-440) 01/08/19 23:37 Lymph % (Auto) 10.5 % (13.4-35.0) L 01/08/19 18:52 Bibb % (Auto) 10.8 % (0.0-7.3) H 01/08/19 18:52 Eos % (Auto) 0.4 % (0.0-4.3) 01/08/19 18:52 Baso % (Auto) 0.4 % (0.0-1.8) 01/08/19 18:52 Lymph # 1.2 K/mm3 (1.2-5.4) 01/08/19 18:52 Bibb # 1.3 K/mm3 (0.0-0.8) H 01/08/19 18:52 Eos # 0.0 K/mm3 (0.0-0.4) 01/08/19 18:52 Baso # 0.0 K/mm3 (0.0-0.1) 01/08/19 18:52 Seg Neutrophils % 77.9 % (40.0-70.0) H 01/08/19 18:52 Seg Neutrophils # 9.0 K/mm3 (1.8-7.7) H 01/08/19 18:52 PT 14.3 Sec. (12.2-14.9) 01/08/19 18:52 INR 1.14 (0.87-1.13) H 01/08/19 18:52 APTT 29.7 Sec. (24.2-36.6) 01/08/19 18:52 Sodium 142 mmol/L (137-145) 01/08/19 18:52 Potassium 3.8 mmol/L (3.6-5.0) 01/08/19 18:52 Chloride 101.3 mmol/L (98-107) 01/08/19 18:52 Carbon Dioxide 28 mmol/L (22-30) 01/08/19 18:52 17 mmol/L 01/08/19 18:52 BUN 10 mg/dL (9-20) 01/08/19 18:52 1.0 mg/dL (0.8-1.5) 01/08/19 18:52 Estimated GFR > 60 ml/min 01/08/19 18:52 10 % 01/08/19 18:52 Glucose 173 mg/dL (75-100) H 01/08/19 18:52 Lactic Acid 1.90 mmol/L (0.7-2.0) 01/08/19 23:37 Calcium 9.9 mg/dL (8.4-10.2) 01/08/19 18:52 0.50 mg/dL (0.1-1.2) 01/08/19 18:52 AST 20 units/L (5-40) 01/08/19 18:52 ALT 19 units/L (7-56) 01/08/19 18:52 99 units/L (35-129) 01/08/19 18:52 31.0 umol/L (25-60) 01/08/19 18:52 < 0.010 ng/mL (0.00-0.029) 01/08/19 18:52 6.7 g/dL (6.3-8.2) 01/08/19 18:52 3.8 g/dL (3.9-5) L 01/08/19 18:52 1.3 % 01/08/19 18:52 Yellow (Yellow) 01/08/19 18:30 Slightly-cloudy (Clear) 01/08/19 18:30 5.0 (5.0-7.0) 01/08/19 18:30 Ur Specific [place] 1.015 (1.003-1.030) 01/08/19 18:30 <15 mg/dl mg/dL (Negative) 01/08/19 18:30 Neg mg/dL (Negative) 01/08/19 18:30 Neg mg/dL (Negative) 01/08/19 18:30 Mod (Negative) 01/08/19 18:30 Pos (Negative) 01/08/19 18:30 Neg (Negative) 01/08/19 18:30 4.0 mg/dL (<2.0) 01/08/19 18:30 Ur Leukocyte Esterase Sm (Negative) 01/08/19 18:30 39.0 /HPF (0.0-6.0) H 01/08/19 18:30 23.0 /HPF (0.0-6.0) 01/08/19 18:30 3+ /HPF 01/08/19 18:30 Salicylates < 0.3 mg/dL (2.8-20.0) L 01/08/19 18:52 Acetaminophen < 5.0 ug/mL (10.0-30.0) L 01/08/19 18:52 Assessment and Plan Assessment and plan: Patient seen and examined, agree with the following, except, hold anticoagulation. Patirnt with blood in diaper and coming from penis. He had a straight cath done for UA sample, suspect that this is traumatic, also with his hisrory of BPH. Monitor hemoglobin. Hold oral medications until patient is more alert. Change Keppra to IV.
[2019-01-08] MEDS ORDERED: FLOMAX PO SCH (22:00)
[2019-01-08] MEDS ORDERED: NON-FORMULARY (Tamsulosin 0.4 MG) PO SCH (22:00)
[2019-01-08] MEDS ORDERED: COLACE PO SCH (22:00)
[2019-01-08] MEDS ORDERED: KEPPRA PO SCH (22:00)
[2019-01-08] MEDS ORDERED: NON-FORMULARY (Levetiracetam [Keppra Tab] 750 MG) PO SCH (22:00)
[2019-01-08] MEDS ORDERED: D50W (25GM) Syringe IV PRN (22:11)
[2019-01-09 00:04] LABS: Hematocrit 41.1 % (35.5-45.6); Hemoglobin 13.5 gm/dl (11.8-15.2); Mean Corpuscular HGB Conc 33 % (32-34); Mean Corpuscular Volume 92 fl (84-94); Platelet Count 262 K/mm3 (140-440); Red Blood Count 4.45 M/mm3 (3.65-5.03)
[2019-01-09] MEDS ORDERED: NACL 0.9% 1000 ML 1,000 ML ONE (00:19)
[2019-01-09] MEDS: SODIUM CHLORIDE FLUSH SYRINGE 10 ML IV SCH ×3 (00:42→22:14)
[2019-01-09] MEDS: NACL 0.9% 1000 ML 1,000 ML IV SCH ×2 (00:42→14:26)
[2019-01-09] MEDS: KEPPRA 750 MG in D5W 100 ML IV SCH ×3 (02:51→22:13)
[2019-01-09 06:28] LABS: Basophils % (Auto) 0.3 % (0.0-1.8); Eosinophils % (Auto) 0.3 % (0.0-4.3); Hematocrit 37.5 % (35.5-45.6); Hemoglobin 12.6 gm/dl (11.8-15.2); Lymphocytes # (Auto) 1.2 K/mm3 (1.2-5.4); Lymphocytes % (Auto) 12.3 % (13.4-35.0); Mean Corpuscular HGB Conc 34 % (32-34); Mean Corpuscular Volume 91 fl (84-94); Monocytes # (Auto) 1.4 K/mm3 (0.0-0.8); Monocytes % (Auto) 13.8 % (0.0-7.3); Platelet Count 241 K/mm3 (140-440); Red Blood Count 4.13 M/mm3 (3.65-5.03); Red Cell Distribution Width 13.7 % (13.2-15.2)
[2019-01-09 06:41] LABS: BUN/Creatinine Ratio 10; Blood Urea Nitrogen 8 mg/dL (9-20); Calcium 8.9 mg/dL (8.4-10.2); Hemolysis Index 4
[2019-01-09 09:17] LABS: Hematocrit 38.4 % (35.5-45.6); Hemoglobin 12.9 gm/dl (11.8-15.2)
[2019-01-09] MEDS: HumuLIN R SUB-Q SCH ×2 (09:37→12:59)
[2019-01-09] MEDS ORDERED: KEPPRA 750 MG in D5W 100 ML IV SCH (10:00)
[2019-01-09] MEDS ORDERED: FINASTERIDE 5 MG PO SCH (10:00)
[2019-01-09] MEDS ORDERED: NON-FORMULARY (Atorvastatin 80 MG) PO SCH (10:00)
[2019-01-09] MEDS ORDERED: BABY ASPIRIN PO SCH (10:00)
[2019-01-09] MEDS ORDERED: PLAVIX PO SCH (10:00)
[2019-01-09] MEDS ORDERED: PROSCAR PO SCH (10:00)
[2019-01-09] MEDS ORDERED: NORVASC PO SCH (10:00)
[2019-01-09] MEDS ORDERED: MAXZIDE-25 PO SCH (10:00)
[2019-01-09] MEDS: ROCEPHIN/NS 1 GM/50 ML 1 GM/50 ML BAG IV SCH (10:20)
--- NOTE | 2019-01-09 15:56 | Progress Note ---
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 . Sepsis, UTI cont ivf, abx, fup cultures . Acute metabolic encephalopathy due to sepsis/uti, cont mgt as above . Hypertension, . Coronary artery disease, Hyperlipidemia cont home meds Chronic dysphasia -Swallow eval pending -Mechanical soft diet with nectar thickened liquids DM2 ruled out, has predm, a1c 6.3 hypokalemia repleted . History of CVA -Bilateral residual weakness Severe debility -Wheelchair-bound at baseline -Bilateral residual weakness -PT/OT consult pending History of BPH -Continue finasteride and Flomax Seizure disorder -recently diagnosed 01/02/19 -Continue Keppra 750 mg twice a day, Initiate seizure precautions . DVT PPX lovenox History Interval history: Review of systems Constitutional: No fevers, no malaise, no joint pains CVS: No chest pain, no orthopnea, no dyspnea on exertion, no pedal edema GI: No abdominal pain, no diarrhea, no vomiting, no constipation Respiratory: no wheezing, no coughing Hospitalist Physical - Physical exam Narrative exam: General.: Appears well, no distress, nontoxic HEENT: Moist mucous membranes, extraocular muscles intact, no lymphadenopathy Neck: supple Cardiac: S1-S2 heard Lungs: clear to auscultation bilaterally Abdomen: soft , nontender, nondistended, bowel sounds positive Extremities: no edema clubbing or cyanosis Skin: no rash or lesions Neurologic: no gross focal deficits Psych: calm, and cooperative, confused and drowsy - Constitutional Vitals: Temp Pulse Resp BP Pulse Ox 98.7 F 68 18 142/61 97 01/09/19 00:53 01/09/19 08:12 01/09/19 08:12 01/09/19 00:53 01/09/19 08:12 Results - Labs CBC & Chem 7: 01/10/19 05:13 01/10/19 05:13 Labs: Laboratory Last Values WBC 10.0 K/mm3 (4.5-11.0) 01/09/19 04:30 RBC 4.13 M/mm3 (3.65-5.03) 01/09/19 04:30 Hgb 12.9 gm/dl (11.8-15.2) 01/09/19 08:22 Hct 38.4 % (35.5-45.6) 01/09/19 08:22 MCV 91 fl (84-94) 01/09/19 04:30 MCH 31 pg (28-32) 01/09/19 04:30 MCHC 34 % (32-34) 01/09/19 04:30 RDW 13.7 % (13.2-15.2) 01/09/19 04:30 Plt Count 241 K/mm3 (140-440) 01/09/19 04:30 Lymph % (Auto) 12.3 % (13.4-35.0) L 01/09/19 04:30 [place] % (Auto) 13.8 % (0.0-7.3) H 01/09/19 04:30 Eos % (Auto) 0.3 % (0.0-4.3) 01/09/19 04:30 Baso % (Auto) 0.3 % (0.0-1.8) 01/09/19 04:30 Lymph # 1.2 K/mm3 (1.2-5.4) 01/09/19 04:30 [place] # 1.4 K/mm3 (0.0-0.8) H 01/09/19 04:30 Eos # 0.0 K/mm3 (0.0-0.4) 01/09/19 04:30 Baso # 0.0 K/mm3 (0.0-0.1) 01/09/19 04:30 Seg Neutrophils % 73.3 % (40.0-70.0) H 01/09/19 04:30 Seg Neutrophils # 7.3 K/mm3 (1.8-7.7) 01/09/19 04:30 PT 14.3 Sec. (12.2-14.9) 01/08/19 18:52 INR 1.14 (0.87-1.13) H 01/08/19 18:52 APTT 29.7 Sec. (24.2-36.6) 01/08/19 18:52 Sodium 141 mmol/L (137-145) 01/09/19 04:30 Potassium 3.0 mmol/L (3.6-5.0) L D 01/09/19 04:30 Chloride 103.5 mmol/L (98-107) 01/09/19 04:30 Carbon Dioxide 27 mmol/L (22-30) 01/09/19 04:30 14 mmol/L 01/09/19 04:30 BUN 8 mg/dL (9-20) L 01/09/19 04:30 0.8 mg/dL (0.8-1.5) 01/09/19 04:30 Estimated GFR > 60 ml/min 01/09/19 04:30 10 % 01/09/19 04:30 Glucose 118 mg/dL (75-100) H 01/09/19 04:30 POC Glucose 103 (70-105) 01/09/19 15:49 6.3 % (4-6) H 01/09/19 04:30 Lactic Acid 1.90 mmol/L (0.7-2.0) 01/08/19 23:37 Calcium 8.9 mg/dL (8.4-10.2) 01/09/19 04:30 0.50 mg/dL (0.1-1.2) 01/08/19 18:52 AST 20 units/L (5-40) 01/08/19 18:52 ALT 19 units/L (7-56) 01/08/19 18:52 99 units/L (35-129) 01/08/19 18:52 31.0 umol/L (25-60) 01/08/19 18:52 < 0.010 ng/mL (0.00-0.029) 01/08/19 18:52 6.7 g/dL (6.3-8.2) 01/08/19 18:52 3.8 g/dL (3.9-5) L 01/08/19 18:52 1.3 % 01/08/19 18:52 Yellow (Yellow) 01/08/19 18:30 Slightly-cloudy (Clear) 01/08/19 18:30 5.0 (5.0-7.0) 01/08/19 18:30 Ur Specific [place] 1.015 (1.003-1.030) 01/08/19 18:30 <15 mg/dl mg/dL (Negative) 01/08/19 18:30 Neg mg/dL (Negative) 01/08/19 18:30 Neg mg/dL (Negative) 01/08/19 18:30 Mod (Negative) 01/08/19 18:30 Pos (Negative) 01/08/19 18:30 Neg (Negative) 01/08/19 18:30 4.0 mg/dL (<2.0) 01/08/19 18:30 Ur Leukocyte Esterase Sm (Negative) 01/08/19 18:30 39.0 /HPF (0.0-6.0) H 01/08/19 18:30 23.0 /HPF (0.0-6.0) 01/08/19 18:30 3+ /HPF 01/08/19 18:30 Salicylates < 0.3 mg/dL (2.8-20.0) L 01/08/19 18:52 Acetaminophen < 5.0 ug/mL (10.0-30.0) L 01/08/19 18:52 Active Medications - Current Medications Current Medications: Generic Name Dose Route Start Last Admin Trade Name Freq PRN Reason Stop Dose Admin Acetaminophen 650 mg 01/08/19 21:04 Tylenol PO Q4H PRN Pain MILD(1-3)/Fever >100.5/FORMAN Dextrose 50 ml 01/08/19 22:11 D50w (25gm) Syringe IV PRN PRN Hypoglycemia Sodium Chloride 1,000 mls @ 75 mls/hr 01/08/19 22:00 01/09/19 14:26 Nacl 0.9% 1000 Ml IV 75 mls/hr DIRECT LIZBETH Administration Ceftriaxone Sodium 1 gm in 50 mls @ 100 mls/hr 01/09/19 10:00 01/09/19 12:57 Rocephin/Ns 1 Gm/50 Ml IV Infused Q24HR LIZBETH Infusion Protocol Levetiracetam 750 mg/ Dextrose 107.5 mls @ 400 mls/hr 01/09/19 01:00 01/09/19 10:17 IV Infused Q12HR LIZBETH Infusion Insulin Human Regular 0 units 01/09/19 07:30 01/09/19 12:59 Humulin R SUB-Q Not Given ACHS LIZBETH Protocol Ondansetron HCl 4 mg 01/08/19 21:04 Zofran IV Q8H PRN Nausea And Vomiting Sodium Chloride 10 ml 01/08/19 22:00 01/09/19 09:36 Sodium Chloride Flush Syringe 10 Ml IV 10 ml BID LIZBETH Administration Sodium Chloride 10 ml 01/08/19 21:04 Sodium Chloride Flush Syringe 10 Ml IV PRN PRN LINE FLUSH
[2019-01-09] MEDS ORDERED: KCL 40 MEQ in NACL 0.45% 500 ML IV SCH (17:00)
[2019-01-09] MEDS: LOVENOX SUB-Q SCH (22:13)
[2019-01-10] MEDS: NACL 0.9% 1000 ML 1,000 ML IV SCH ×2 (05:53→19:04)
[2019-01-10 05:56] LABS: Basophils % (Auto) 0.6 % (0.0-1.8); Eosinophils # (Auto) 0.1 K/mm3 (0.0-0.4); Eosinophils % (Auto) 1.7 % (0.0-4.3); Hematocrit 37.1 % (35.5-45.6); Hemoglobin 12.5 gm/dl (11.8-15.2); Lymphocytes # (Auto) 1.3 K/mm3 (1.2-5.4); Lymphocytes % (Auto) 22.2 % (13.4-35.0); Mean Corpuscular HGB Conc 34 % (32-34); Mean Corpuscular Volume 91 fl (84-94); Monocytes # (Auto) 0.7 K/mm3 (0.0-0.8); Monocytes % (Auto) 11.8 % (0.0-7.3); Platelet Count 225 K/mm3 (140-440); Red Cell Distribution Width 14.3 % (13.2-15.2)
[2019-01-10 06:19] LABS: BUN/Creatinine Ratio 11; Blood Urea Nitrogen 8 mg/dL (9-20); Calcium 8.8 mg/dL (8.4-10.2); Hemolysis Index 7
[2019-01-10] MEDS: ROCEPHIN/NS 1 GM/50 ML 1 GM/50 ML BAG IV SCH (09:53)
[2019-01-10] MEDS: KEPPRA 750 MG in D5W 100 ML IV SCH ×2 (09:53→22:42)
[2019-01-10] MEDS: SODIUM CHLORIDE FLUSH SYRINGE 10 ML IV SCH ×2 (09:58→22:42)
--- NOTE | 2019-01-10 14:03 | Progress Note ---
Assessment and Plan Assessment and plan: 69-year-old -[place] female who is a long term resident with history of CVA, DM 2, HTN, HLD, chronic dysphasia, severe debility, and newly diagnosed seizure disorder who presents [facility] ED via EMS with complaints of altered mental status. . Sepsis, UTI cont ivf, abx, fup cultures . Acute metabolic encephalopathy due to sepsis/uti, cont mgt as above . Hypertension, . Coronary artery disease, Hyperlipidemia cont home meds Chronic dysphasia -Swallow eval pending -Mechanical soft diet with nectar thickened liquids DM2 ruled out, has predm, a1c 6.3 hypokalemia repleted . History of CVA -Bilateral residual weakness Severe debility -Wheelchair-bound at baseline -Bilateral residual weakness -PT/OT consult pending History of BPH -Continue finasteride and Flomax Seizure disorder -recently diagnosed 01/02/19 -Continue Keppra 750 mg twice a day, Initiate seizure precautions . DVT PPX lovenox History Interval history: Review of systems Constitutional: No fevers, no malaise, no joint pains CVS: No chest pain, no orthopnea, no dyspnea on exertion, no pedal edema GI: No abdominal pain, no diarrhea, no vomiting, no constipation Respiratory: no wheezing, no coughing Hospitalist Physical - Physical exam Narrative exam: General.: Appears well, no distress, nontoxic HEENT: Moist mucous membranes, extraocular muscles intact, no lymphadenopathy Neck: supple Cardiac: S1-S2 heard Lungs: clear to auscultation bilaterally Abdomen: soft , nontender, nondistended, bowel sounds positive Extremities: no edema clubbing or cyanosis Skin: no rash or lesions Neurologic: no gross focal deficits Psych: calm, and cooperative, confused and drowsy - Constitutional Vitals: Temp Pulse Resp BP Pulse Ox 98.6 F 64 18 131/66 96 01/10/19 07:29 01/10/19 10:00 01/10/19 07:29 01/10/19 07:29 01/10/19 10:00 Results - Labs CBC & Chem 7: 01/10/19 05:13 01/10/19 05:13 Labs: Laboratory Last Values WBC 5.9 K/mm3 (4.5-11.0) 01/10/19 05:13 RBC 4.10 M/mm3 (3.65-5.03) 01/10/19 05:13 Hgb 12.5 gm/dl (11.8-15.2) 01/10/19 05:13 Hct 37.1 % (35.5-45.6) 01/10/19 05:13 MCV 91 fl (84-94) 01/10/19 05:13 MCH 31 pg (28-32) 01/10/19 05:13 MCHC 34 % (32-34) 01/10/19 05:13 RDW 14.3 % (13.2-15.2) 01/10/19 05:13 Plt Count 225 K/mm3 (140-440) 01/10/19 05:13 Lymph % (Auto) 22.2 % (13.4-35.0) 01/10/19 05:13 [place] % (Auto) 11.8 % (0.0-7.3) H 01/10/19 05:13 Eos % (Auto) 1.7 % (0.0-4.3) 01/10/19 05:13 Baso % (Auto) 0.6 % (0.0-1.8) 01/10/19 05:13 Lymph # 1.3 K/mm3 (1.2-5.4) 01/10/19 05:13 [place] # 0.7 K/mm3 (0.0-0.8) 01/10/19 05:13 Eos # 0.1 K/mm3 (0.0-0.4) 01/10/19 05:13 Baso # 0.0 K/mm3 (0.0-0.1) 01/10/19 05:13 Seg Neutrophils % 63.7 % (40.0-70.0) 01/10/19 05:13 Seg Neutrophils # 3.8 K/mm3 (1.8-7.7) 01/10/19 05:13 PT 14.3 Sec. (12.2-14.9) 01/08/19 18:52 INR 1.14 (0.87-1.13) H 01/08/19 18:52 APTT 29.7 Sec. (24.2-36.6) 01/08/19 18:52 Sodium 143 mmol/L (137-145) 01/10/19 05:13 Potassium 3.5 mmol/L (3.6-5.0) L 01/10/19 05:13 Chloride 107.3 mmol/L (98-107) H 01/10/19 05:13 Carbon Dioxide 25 mmol/L (22-30) 01/10/19 05:13 14 mmol/L 01/10/19 05:13 BUN 8 mg/dL (9-20) L 01/10/19 05:13 0.7 mg/dL (0.8-1.5) L 01/10/19 05:13 Estimated GFR > 60 ml/min 01/10/19 05:13 11 % 01/10/19 05:13 Glucose 81 mg/dL (75-100) 01/10/19 05:13 POC Glucose 106 (70-105) H 01/10/19 12:02 6.3 % (4-6) H 01/09/19 04:30 Lactic Acid 1.90 mmol/L (0.7-2.0) 01/08/19 23:37 Calcium 8.8 mg/dL (8.4-10.2) 01/10/19 05:13 Phosphorus 2.00 mg/dL (2.5-4.5) L 01/10/19 05:13 Magnesium 1.80 mg/dL (1.7-2.3) 01/10/19 05:13 0.50 mg/dL (0.1-1.2) 01/08/19 18:52 AST 20 units/L (5-40) 01/08/19 18:52 ALT 19 units/L (7-56) 01/08/19 18:52 99 units/L (35-129) 01/08/19 18:52 31.0 umol/L (25-60) 01/08/19 18:52 < 0.010 ng/mL (0.00-0.029) 01/08/19 18:52 6.7 g/dL (6.3-8.2) 01/08/19 18:52 3.8 g/dL (3.9-5) L 01/08/19 18:52 1.3 % 01/08/19 18:52 Yellow (Yellow) 01/08/19 18:30 Slightly-cloudy (Clear) 01/08/19 18:30 5.0 (5.0-7.0) 01/08/19 18:30 Ur Specific [place] 1.015 (1.003-1.030) 01/08/19 18:30 <15 mg/dl mg/dL (Negative) 01/08/19 18:30 Neg mg/dL (Negative) 01/08/19 18:30 Neg mg/dL (Negative) 01/08/19 18:30 Mod (Negative) 01/08/19 18:30 Pos (Negative) 01/08/19 18:30 Neg (Negative) 01/08/19 18:30 4.0 mg/dL (<2.0) 01/08/19 18:30 Ur Leukocyte Esterase Sm (Negative) 01/08/19 18:30 39.0 /HPF (0.0-6.0) H 01/08/19 18:30 23.0 /HPF (0.0-6.0) 01/08/19 18:30 3+ /HPF 01/08/19 18:30 Salicylates < 0.3 mg/dL (2.8-20.0) L 01/08/19 18:52 Acetaminophen < 5.0 ug/mL (10.0-30.0) L 01/08/19 18:52 Active Medications - Current Medications Current Medications: Generic Name Dose Route Start Last Admin Trade Name [place] PRN Reason Stop Dose Admin Acetaminophen 650 mg 01/08/19 21:04 Tylenol PO Q4H PRN Pain MILD(1-3)/Fever >100.5/FORMAN Dextrose 50 ml 01/08/19 22:11 D50w (25gm) Syringe IV PRN PRN Hypoglycemia Enoxaparin Sodium 40 mg 01/09/19 22:00 01/09/19 22:13 Lovenox SUB-Q 40 mg QDAY@2200 LIZBETH Administration Sodium Chloride 1,000 mls @ 75 mls/hr 01/08/19 22:00 01/10/19 05:53 Nacl 0.9% 1000 Ml IV 75 mls/hr DIRECT LIZBETH Administration Ceftriaxone Sodium 1 gm in 50 mls @ 100 mls/hr 01/09/19 10:00 01/10/19 09:53 Rocephin/Ns 1 Gm/50 Ml IV 100 mls/hr Q24HR LIZBETH Administration Protocol Levetiracetam 750 mg/ Dextrose 107.5 mls @ 400 mls/hr 01/09/19 01:00 01/10/19 09:53 IV 400 mls/hr Q12HR LIZBETH Administration Ondansetron HCl 4 mg 01/08/19 21:04 Zofran IV Q8H PRN Nausea And Vomiting Sodium Chloride 10 ml 01/08/19 22:00 01/10/19 09:58 Sodium Chloride Flush Syringe 10 Ml IV 10 ml BID LIZBETH Administration Sodium Chloride 10 ml 01/08/19 21:04 Sodium Chloride Flush Syringe 10 Ml IV PRN PRN LINE FLUSH Sodium Phosphate 250 mg 01/10/19 18:00 K-Phos Neutral PO 01/13/19 17:59 QID LIZBETH
[2019-01-10] MEDS: K-PHOS NEUTRAL PO SCH ×2 (17:46→22:42)
[2019-01-10] MEDS: LOVENOX SUB-Q SCH (22:42)
[2019-01-11] MEDS: NACL 0.9% 1000 ML 1,000 ML IV SCH ×2 (09:08→22:31)
[2019-01-11] MEDS: KEPPRA 750 MG in D5W 100 ML IV SCH (09:08)
[2019-01-11] MEDS: ROCEPHIN/NS 1 GM/50 ML 1 GM/50 ML BAG IV SCH (09:09)
[2019-01-11] MEDS: SODIUM CHLORIDE FLUSH SYRINGE 10 ML IV SCH ×2 (09:10→22:33)
[2019-01-11] MEDS: K-PHOS NEUTRAL PO SCH ×4 (09:10→22:32)
--- NOTE | 2019-01-11 15:24 | Progress Note ---
Assessment and Plan Assessment and plan: 69-year-old -Guinean female who is a assisted resident with history of CVA, DM 2, HTN, HLD, chronic dysphasia, severe debility, and newly diagnosed seizure disorder who presents [facility] ED via EMS with complaints of altered mental status. . Sepsis, UTI cont ivf, abx, fup cultures . Acute metabolic encephalopathy due to sepsis/uti, cont mgt as above . Hypertension, . Coronary artery disease, Hyperlipidemia cont home meds bradycardia cardiology consult Chronic dysphasia -Swallow eval pending -Mechanical soft diet with nectar thickened liquids DM2 ruled out, has predm, a1c 6.3 hypokalemia repleted . History of CVA -Bilateral residual weakness Severe debility -Wheelchair-bound at baseline -Bilateral residual weakness -PT/OT consult pending History of BPH -Continue finasteride and Flomax Seizure disorder -recently diagnosed 01/02/19 -Continue Keppra 750 mg twice a day, Initiate seizure precautions . DVT PPX lovenox Hospitalist Physical - Constitutional Vitals: Temp Pulse Resp BP Pulse Ox 98.7 F 52 L 20 140/58 99 01/11/19 07:32 01/11/19 09:36 01/11/19 10:00 01/11/19 07:32 01/11/19 10:00 Results - Labs CBC & Chem 7: 01/10/19 05:13 01/10/19 05:13 Labs: Laboratory Last Values WBC 5.9 K/mm3 (4.5-11.0) 01/10/19 05:13 RBC 4.10 M/mm3 (3.65-5.03) 01/10/19 05:13 Hgb 12.5 gm/dl (11.8-15.2) 01/10/19 05:13 Hct 37.1 % (35.5-45.6) 01/10/19 05:13 MCV 91 fl (84-94) 01/10/19 05:13 MCH 31 pg (28-32) 01/10/19 05:13 MCHC 34 % (32-34) 01/10/19 05:13 RDW 14.3 % (13.2-15.2) 01/10/19 05:13 Plt Count 225 K/mm3 (140-440) 01/10/19 05:13 Lymph % (Auto) 22.2 % (13.4-35.0) 01/10/19 05:13 [place] % (Auto) 11.8 % (0.0-7.3) H 01/10/19 05:13 Eos % (Auto) 1.7 % (0.0-4.3) 01/10/19 05:13 Baso % (Auto) 0.6 % (0.0-1.8) 01/10/19 05:13 Lymph # 1.3 K/mm3 (1.2-5.4) 01/10/19 05:13 [place] # 0.7 K/mm3 (0.0-0.8) 01/10/19 05:13 Eos # 0.1 K/mm3 (0.0-0.4) 01/10/19 05:13 Baso # 0.0 K/mm3 (0.0-0.1) 01/10/19 05:13 Seg Neutrophils % 63.7 % (40.0-70.0) 01/10/19 05:13 Seg Neutrophils # 3.8 K/mm3 (1.8-7.7) 01/10/19 05:13 PT 14.3 Sec. (12.2-14.9) 01/08/19 18:52 INR 1.14 (0.87-1.13) H 01/08/19 18:52 APTT 29.7 Sec. (24.2-36.6) 01/08/19 18:52 Sodium 143 mmol/L (137-145) 01/10/19 05:13 Potassium 3.5 mmol/L (3.6-5.0) L 01/10/19 05:13 Chloride 107.3 mmol/L (98-107) H 01/10/19 05:13 Carbon Dioxide 25 mmol/L (22-30) 01/10/19 05:13 14 mmol/L 01/10/19 05:13 BUN 8 mg/dL (9-20) L 01/10/19 05:13 0.7 mg/dL (0.8-1.5) L 01/10/19 05:13 Estimated GFR > 60 ml/min 01/10/19 05:13 11 % 01/10/19 05:13 Glucose 81 mg/dL (75-100) 01/10/19 05:13 POC Glucose 136 (70-105) H 01/11/19 11:32 6.3 % (4-6) H 01/09/19 04:30 Lactic Acid 1.90 mmol/L (0.7-2.0) 01/08/19 23:37 Calcium 8.8 mg/dL (8.4-10.2) 01/10/19 05:13 Phosphorus 2.00 mg/dL (2.5-4.5) L 01/10/19 05:13 Magnesium 1.80 mg/dL (1.7-2.3) 01/10/19 05:13 0.50 mg/dL (0.1-1.2) 01/08/19 18:52 AST 20 units/L (5-40) 01/08/19 18:52 ALT 19 units/L (7-56) 01/08/19 18:52 99 units/L (35-129) 01/08/19 18:52 31.0 umol/L (25-60) 01/08/19 18:52 < 0.010 ng/mL (0.00-0.029) 01/08/19 18:52 6.7 g/dL (6.3-8.2) 01/08/19 18:52 3.8 g/dL (3.9-5) L 01/08/19 18:52 1.3 % 01/08/19 18:52 Yellow (Yellow) 01/08/19 18:30 Slightly-cloudy (Clear) 01/08/19 18:30 5.0 (5.0-7.0) 01/08/19 18:30 Ur Specific [place] 1.015 (1.003-1.030) 01/08/19 18:30 <15 mg/dl mg/dL (Negative) 01/08/19 18:30 Neg mg/dL (Negative) 01/08/19 18:30 Neg mg/dL (Negative) 01/08/19 18:30 Mod (Negative) 01/08/19 18:30 Pos (Negative) 01/08/19 18:30 Neg (Negative) 01/08/19 18:30 4.0 mg/dL (<2.0) 01/08/19 18:30 Ur Leukocyte Esterase Sm (Negative) 01/08/19 18:30 39.0 /HPF (0.0-6.0) H 01/08/19 18:30 23.0 /HPF (0.0-6.0) 01/08/19 18:30 3+ /HPF 01/08/19 18:30 Salicylates < 0.3 mg/dL (2.8-20.0) L 01/08/19 18:52 Acetaminophen < 5.0 ug/mL (10.0-30.0) L 01/08/19 18:52 Active Medications - Current Medications Current Medications: Generic Name Dose Route Start Last Admin Trade Name Freq PRN Reason Stop Dose Admin Acetaminophen 650 mg 01/08/19 21:04 Tylenol PO Q4H PRN Pain MILD(1-3)/Fever >100.5/FORMAN Dextrose 50 ml 01/08/19 22:11 D50w (25gm) Syringe IV PRN PRN Hypoglycemia Enoxaparin Sodium 40 mg 01/09/19 22:00 01/10/19 22:42 Lovenox SUB-Q 40 mg QDAY@2200 LIZBETH Administration Sodium Chloride 1,000 mls @ 75 mls/hr 01/08/19 22:00 01/11/19 09:08 Nacl 0.9% 1000 Ml IV 75 mls/hr DIRECT LIZBETH Administration Ceftriaxone Sodium 1 gm in 50 mls @ 100 mls/hr 01/09/19 10:00 01/11/19 09:09 Rocephin/Ns 1 Gm/50 Ml IV 100 mls/hr Q24HR LIZBETH Administration Protocol Levetiracetam 750 mg 01/11/19 22:00 Keppra PO Q12HR LIZBETH Ondansetron HCl 4 mg 01/08/19 21:04 Zofran IV Q8H PRN Nausea And Vomiting Sodium Chloride 10 ml 01/08/19 22:00 01/11/19 09:10 Sodium Chloride Flush Syringe 10 Ml IV 10 ml BID LIZBETH Administration Sodium Chloride 10 ml 01/08/19 21:04 Sodium Chloride Flush Syringe 10 Ml IV PRN PRN LINE FLUSH Sodium Phosphate 250 mg 01/10/19 18:00 01/11/19 13:24 K-Phos Neutral PO 01/13/19 17:59 250 mg QID LIZBETH Administration
[2019-01-11] MEDS: KEPPRA PO SCH (22:32)
[2019-01-11] MEDS: LOVENOX SUB-Q SCH (22:32)
[2019-01-12] MEDS: KEPPRA PO SCH ×2 (09:14→22:05)
[2019-01-12] MEDS: K-PHOS NEUTRAL PO SCH ×4 (09:15→22:05)
[2019-01-12] MEDS: ROCEPHIN/NS 1 GM/50 ML 1 GM/50 ML BAG IV SCH (09:15)
[2019-01-12] MEDS: SODIUM CHLORIDE FLUSH SYRINGE 10 ML IV SCH ×2 (09:15→22:06)
--- NOTE | 2019-01-12 11:22 | Consultation ---
History of Present Illness Consult date: 01/12/19 Requesting physician: SALLY ÁLVAREZ Consult reason: bradycardia History of present illness: The pt is a 69-year-old -Serbian male who is a longterm resident with history of CVA, DM 2, HTN, HLD, chronic dysphasia, dementia, severe debility, and newly diagnosed seizure disorder who presents [facility] ED via EMS on 01/08/2019 with complaints of altered mental status. Pt subsequently found to have UTI and encephalopathy. Pt is confused on evaluation and not able to provide any history. He is in no apparent distress. He denies any pain. Cardiology has been consulted for ? bradycardia. Pt is not currently on remote telemetry. ECG shows NSR with HR 90 and freq PACs. Echo done 03/2013 was TDS, showed EF 55-60%, LA mildly dilated, grade 3 diastolic dysfunction. Past History Past Medical History: diabetes (type 2), hypertension, hyperlipidemia, seizures, stroke (1992 bilateral residual deficits), other (severe debility, wheelchair bound, dementia, BPH, dysphagia) Past Surgical History: Other (skin graft surgery) Social history: lives with family (lives in longterm) Family history: no significant family history Medications and Allergies Allergies Allergy/AdvReac Type Severity Reaction Status Date / Time No Known Allergies Allergy Unverified 04/14/13 15:08 Home Medications Medication Instructions Recorded Confirmed Last Taken Type Aspirin [Aspirin BABY CHEW TAB] 1 tab PO DAILY 04/14/13 01/08/19 Unknown History Triamter/Hctz 37.5-25 mg 1 tab PO QDAY 04/14/13 01/08/19 Unknown History [Maxzide-25] Clopidogrel [Plavix] 75 mg PO QDAY #30 tablet 04/18/13 01/08/19 Unknown Rx AtorvaSTATin 80 mg PO DAILY 07/08/18 01/08/19 Unknown History Finasteride 5 mg PO DAILY 07/08/18 01/08/19 Unknown History Tamsulosin 0.4 mg PO HS 07/08/18 01/08/19 Unknown History Acetaminophen [Acetaminophen TAB] 650 mg PO Q4H PRN #15 tablet 07/10/18 01/08/19 Unknown Rx levETIRAcetam [Keppra TAB] 750 mg PO BID #60 tablet 01/04/19 01/08/19 Unknown Rx amLODIPine [Norvasc] 10 mg PO DAILY 01/08/19 01/08/19 Unknown History Active Meds: Active Medications Acetaminophen (Tylenol) 650 mg PO Q4H PRN PRN Reason: Pain MILD(1-3)/Fever >100.5/FORMAN Dextrose (D50w (25gm) Syringe) 50 ml IV PRN PRN PRN Reason: Hypoglycemia Enoxaparin Sodium (Lovenox) 40 mg SUB-Q QDAY@2200 [facility] Last Admin: 01/11/19 22:32 Dose: 40 mg Documented by: Sodium Chloride (Nacl 0.9% 1000 Ml) 1,000 mls @ 75 mls/hr IV DIRECT [facility] Last Admin: 01/11/19 22:31 Dose: 75 mls/hr Documented by: Ceftriaxone Sodium (Rocephin/Ns 1 Gm/50 Ml) 1 gm in 50 mls @ 100 mls/hr IV Q24HR [facility]; Protocol Last Admin: 01/12/19 09:15 Dose: 100 mls/hr Documented by: Levetiracetam (Keppra) 750 mg PO Q12HR [facility] Last Admin: 01/12/19 09:14 Dose: 750 mg Documented by: Ondansetron HCl (Zofran) 4 mg IV Q8H PRN PRN Reason: Nausea And Vomiting Sodium Chloride (Sodium Chloride Flush Syringe 10 Ml) 10 ml IV BID [facility] Last Admin: 01/12/19 09:15 Dose: 10 ml Documented by: Sodium Chloride (Sodium Chloride Flush Syringe 10 Ml) 10 ml IV PRN PRN PRN Reason: LINE FLUSH Sodium Phosphate (K-Phos Neutral) 250 mg PO QID [facility] Stop: 01/13/19 17:59 Last Admin: 01/12/19 09:15 Dose: 250 mg Documented by: Review of Systems ROS unobtainable: due to mental status All systems: negative (no current complaints) Physical Examination Vital Signs Resp 01/08/19 18:32 General appearance: no acute distress HEENT: Positive: PERRL, Normocephaly, Mucus Membranes Moist Neck: Positive: neck supple, trachea midline Cardiac: Positive: Reg Rate and Rhythm, S1/S2 Lungs: Positive: Decreased Breath Sounds Neuro: Positive: Grossly Intact Abdomen: Positive: Soft. Negative: Tender Skin: Negative: Rash, Wound Musculoskeletal: No Pain Extremities: Absent: edema Results 01/10/19 05:13 01/10/19 05:13 - Imaging and Cardiology Echo: pending, report reviewed (03/2013 was TDS, showed EF 55-60%, LA mildly dilated, grade 3 diastolic dysfunction. ) EKG: report reviewed, image reviewed EKG interpretations - Telemetry EKG Rhythm: Sinus Rhythm Assessment and Plan Cardiology has been consulted for ? bradycardia. Pt is not currently on remote telemetry. ECG shows NSR with HR 90 and freq PACs. Pt does not appear to be on any AV ginna blocking agents. Initiate remote telemetry. Obtain thyroid profile and echo. Further recs to follow per hospital course. The patient has been seen in conjunction with Dr. Long who agrees with the assessment and plan of care. - Patient Problems (1) Bradycardia Status: Suspected Plan to address problem: questionable (2) Altered mental state Current Visit: Yes Status: Acute (3) Sepsis Current Visit: Yes Status: Acute (4) UTI (urinary tract infection) Current Visit: Yes Status: Acute (5) Seizure disorder Current Visit: Yes Status: Chronic (6) HTN (hypertension) Current Visit: Yes Status: Chronic (7) Hyperlipidemia Current Visit: Yes Status: Chronic (8) History of CVA (cerebrovascular accident) Current Visit: Yes Status: Chronic (9) Dementia Current Visit: Yes Status: Chronic
[2019-01-12] MEDS: NACL 0.9% 1000 ML 1,000 ML IV SCH (14:12)
--- NOTE | 2019-01-12 17:16 | Progress Note ---
Assessment and Plan Assessment and plan: 69-year-old -Martiniqu[place] female who [facility] with history of CVA, DM 2, HTN, HLD, chronic dysphasia, severe debility, and newly diagnosed seizure disorder who presents [facility] ED via EMS with complaints of altered mental status. . Sepsis, UTI cont ivf, abx, fup cultures . Acute metabolic encephalopathy due to sepsis/uti, cont mgt as above . Hypertension, . Coronary artery disease, Hyperlipidemia cont home meds bradycardia cardiology consult Chronic dysphasia -Swallow eval pending -Mechanical soft diet with nectar thickened liquids DM2 ruled out, has predm, a1c 6.3 hypokalemia repleted . History of CVA -Bilateral residual weakness Severe debility -Wheelchair-bound at baseline -Bilateral residual weakness -PT/OT consult pend ing History of BPH -Continue finasteride and Flomax Seizure disorder -recently diagnosed 01/02/19 -Continue Keppra 750 mg twice a day, Initiate seizure precautions . DVT PPX lovenox Subjective Date of service: 01/12/19 Principal diagnosis: Sepsis Interval history: Doing well Objective - Constitutional Vitals: Vital Signs - 12hr 01/12/19 01/12/19 01/12/19 07:47 10:00 13:14 Temperature 98.2 F 97.8 F Pulse Rate 44 L 60 Pulse Rate [ 44 L From Monitor] Respiratory 20 18 Rate Blood Pressure 163/66 162/93 O2 Sat by Pulse 98 98 98 Oximetry - Labs CBC & Chem 7: 01/10/19 05:13 01/10/19 05:13 Labs: Abnormal lab results 01/11/19 01/11/19 01/12/19 Range/Units 17:50 21:06 11:33 POC Glucose 120 H 111 H 140 H (70-105) 01/12/19 Range/Units 16:47 POC Glucose 126 H (70-105)
[2019-01-12] MEDS: LOVENOX SUB-Q SCH (22:05)
[2019-01-13] MEDS: NACL 0.9% 1000 ML 1,000 ML IV SCH (03:46)
[2019-01-13] MEDS: K-PHOS NEUTRAL PO SCH ×2 (08:59→14:16)
[2019-01-13] MEDS: SODIUM CHLORIDE FLUSH SYRINGE 10 ML IV SCH ×2 (08:59→22:15)
[2019-01-13] MEDS: KEPPRA PO SCH ×2 (08:59→22:15)
[2019-01-13] MEDS: ROCEPHIN/NS 1 GM/50 ML 1 GM/50 ML BAG IV SCH (08:59)
--- NOTE | 2019-01-13 11:12 | Progress Note ---
Assessment and Plan Tele reviewed - pt in SR/SB overnight with freq PACs and some PJCs, no pauses, HR low of 46bpm overnight. Thyroid profile WNL. Await echo. Cont to avoid AV ginna blocking agents. The patient has been seen in conjunction with Dr. Long who agrees with the assessment and plan of care. - Patient Problems (1) Bradycardia Status: Suspected (2) Altered mental state Current Visit: Yes Status: Acute (3) Sepsis Current Visit: Yes Status: Acute (4) UTI (urinary tract infection) Current Visit: Yes Status: Acute (5) Seizure disorder Current Visit: Yes Status: Chronic (6) HTN (hypertension) Current Visit: Yes Status: Chronic (7) Hyperlipidemia Current Visit: Yes Status: Chronic (8) History of CVA (cerebrovascular accident) Current Visit: Yes Status: Chronic (9) Dementia Current Visit: Yes Status: Chronic Subjective Date of service: 01/13/19 Principal diagnosis: bradycardia Interval history: pt resting in bed, no current complaints. remains pleasantly confused. tele reviewed - pt in SR/SB overnight with freq PACs and some PJCs, no pauses, HR low of 46bpm overnight, currently HR 60s. Objective Last Vital Signs Temp 98.0 F 01/13/19 07:33 Pulse 45 L 01/13/19 09:36 Resp 20 01/13/19 09:36 BP 140/73 01/13/19 07:33 Pulse Ox 99 01/13/19 09:36 - Physical Examination General: No Apparent Distress HEENT: Positive: PERRL, Normocephaly, Mucus Membranes Moist Neck: Positive: neck supple, trachea midline Cardiac: Positive: Regular Rhythm, S1/S2, Bradycardia Lungs: Positive: Decreased Breath Sounds Neuro: Positive: Grossly Intact Abdomen: Positive: Soft. Negative: Tender Skin: Negative: Rash, Wound Musculoskeletal: No Pain Extremities: Absent: edema - Imaging and Cardiology EKG: report reviewed, image reviewed Echo: pending, report reviewed (03/2013 was TDS, showed EF 55-60%, LA mildly dilated, grade 3 diastolic dysfunction. ) - Telemetry EKG Rhythm: Sinus Rhythm
--- NOTE | 2019-01-13 17:53 | Progress Note ---
Assessment and Plan Assessment and plan: 69-year-old -[place] female who is a [facility] resident with history of CVA, DM 2, HTN, HLD, chronic dysphasia, severe debility, and newly diagnosed seizure disorder who presents [facility] ED via EMS with complaints of altered mental status. Bradycardia Avoid ginna blocking agents . Sepsis, UTI cont ivf, abx, fup cultures . Acute metabolic encephalopathy due to sepsis/uti, cont mgt as above . Hypertension, . Coronary artery disease, Hyperlipidemia cont home meds bradycardia cardiology consult Chronic dysphasia -Swallow eval pending -Mechanical soft diet with nectar thickened liquids DM2 ruled out, has predm, a1c 6.3 hypokalemia repleted . History of CVA -Bilateral residual weakness Severe debility -Wheelchair-bound at baseline -Bilateral residual weakness -PT/OT consult pending History of BPH -Continue finasteride and Flomax Seizure disorder -recently diagnosed 01/02/19 -Continue Keppra 750 mg twice a day, Initiate seizure precautions . DVT PPX lovenox Subjective Date of service: 01/13/19 Principal diagnosis: Sepsis Interval history: Doing well Objective - Constitutional Vitals: Vital Signs - 12hr 01/13/19 01/13/19 01/13/19 06:00 07:33 09:31 Temperature 98.0 F Pulse Rate 48 L 45 L 58 L Pulse Rate [ From Monitor] Respiratory 20 Rate Blood Pressure 140/73 O2 Sat by Pulse 99 Oximetry 01/13/19 09:36 Temperature Pulse Rate Pulse Rate [ 45 L From Monitor] Respiratory 20 Rate Blood Pressure O2 Sat by Pulse 99 Oximetry General appearance: Present: no acute distress, well-nourished - EENT Eyes: PERRL, EOM intact ENT: hearing intact, clear oral mucosa Ears: bilateral: normal - Neck Neck: supple, normal ROM - Respiratory Respiratory effort: normal Respiratory: bilateral: CTA - Breasts Breasts: normal - Cardiovascular Rhythm: regular Heart Sounds: Present: S1 & S2. Absent: gallop, rub Extremities: pulses intact, No edema, normal color, Full ROM - Gastrointestinal General gastrointestinal: Present: soft, non-tender, non-distended, normal bowel sounds - Genitourinary Male genitourinary: normal - Integumentary Integumentary: clear, warm, dry - Musculoskeletal Musculoskeletal: 1, strength equal bilaterally - Neurologic Neurologic: moves all extremities - Psychiatric Psychiatric: memory intact, appropriate mood/affect, intact judgment & insight - Labs CBC & Chem 7: 01/10/19 05:13 01/10/19 05:13 Labs: Abnormal lab results 01/12/19 01/13/19 01/13/19 Range/Units 22:20 11:45 16:26 POC Glucose 145 H 136 H 178 H (70-105)
[2019-01-13] MEDS: LOVENOX SUB-Q SCH (22:15)
[2019-01-14] MEDS: NACL 0.9% 1000 ML 1,000 ML IV SCH ×2 (00:38→14:17)
[2019-01-14 01:53] VITALS: BP 134/66
[2019-01-14] MEDS: ROCEPHIN/NS 1 GM/50 ML 1 GM/50 ML BAG IV SCH (09:52)
[2019-01-14] MEDS: SODIUM CHLORIDE FLUSH SYRINGE 10 ML IV SCH (09:52)
[2019-01-14] MEDS: KEPPRA PO SCH (09:52)
--- NOTE | 2019-01-14 10:30 | Progress Note ---
Assessment and Plan Echo reviewed - EF 50-55%, impaired relaxation. Tele reviewed - pt in SR/SB overnight with freq PACs, no pauses, HR low of 48bpm overnight, HR currently in 60s-70s while awake. Thyroid profile WNL. Cont to avoid AV ginna blocking agents. Currently stable cardiac status. Nothing further to add from cardiac perspective at this time. Will sign off. The patient has been seen in conjunction with Dr. Long who agrees with the assessment and plan of care. - Patient Problems (1) Sinus bradycardia Current Visit: Yes Status: Acute (2) Altered mental state Current Visit: Yes Status: Acute (3) Sepsis Current Visit: Yes Status: Acute (4) UTI (urinary tract infection) Current Visit: Yes Status: Acute (5) Seizure disorder Current Visit: Yes Status: Chronic (6) HTN (hypertension) Current Visit: Yes Status: Chronic (7) Hyperlipidemia Current Visit: Yes Status: Chronic (8) History of CVA (cerebrovascular accident) Current Visit: Yes Status: Chronic (9) Dementia Current Visit: Yes Status: Chronic Subjective Date of service: 01/14/19 Principal diagnosis: Sepsis Interval history: pt resting in bed, no current complaints. remains pleasantly confused. tele reviewed - pt in SR/SB overnight with freq PACs, no pauses, HR low of 48bpm overnight, currently HR 60s - 70s while awake. Objective Last Vital Signs Temp 98.7 F 01/14/19 01:51 Pulse 78 01/14/19 09:30 Resp 20 01/14/19 09:30 BP 134/66 01/14/19 01:51 Pulse Ox 96 01/14/19 09:30 - Physical Examination General: No Apparent Distress HEENT: Positive: PERRL, Normocephaly, Mucus Membranes Moist Neck: Positive: neck supple, trachea midline Cardiac: Positive: Reg Rate and Rhythm, S1/S2 Lungs: Positive: Decreased Breath Sounds Neuro: Positive: Grossly Intact Abdomen: Positive: Soft. Negative: Tender Skin: Negative: Rash, Wound Musculoskeletal: No Pain Extremities: Absent: edema - Imaging and Cardiology EKG: report reviewed, image reviewed Echo: pending, report reviewed (03/2013 was TDS, showed EF 55-60%, LA mildly dilated, grade 3 diastolic dysfunction. )
--- NOTE | 2019-01-14 15:45 | Discharge Summary ---
Providers - Providers Date of Admission: 01/08/19 21:04 Date of discharge: 01/14/19 Attending physician: NIKI SANTO 01/08/19 22:05 Occupational Therapy Evaluate and Treat [CONS] Routine Comment: assess self feeding ability Reason For Exam: hx cva, bilat residual weakness, Physical Therapy Evaluation and Treat [CONS] Routine Comment: Reason For Exam: hx cva with bilateral residual weakness 01/09/19 14:20 Speech Therapy Evaluation and Treat [CONS] Routine Reason For Exam: swallow eval 01/11/19 15:25 Consult to Physician [CONS] Routine Comment: [id number] Consulting Provider: ARY BLANC Physician Instructions: CONSULT WAS TO /LATONIA Reason For Exam: bradycardia Primary care physician: MIS[facility] PILOT Hospitalization Condition: Fair Hospital course: Sepsis, UTI Resolved Acute metabolic encephalopathy Resolved . Hypertension, . Coronary artery disease, Hyperlipidemia cont home meds bradycardia no ginna blocking agents Chronic dysphasia Mechanical soft diet with nectar thickened liquids DM2 Borderline A1c 6.3 Diet controlled hypokalemia repleted . History of CVA -Bilateral residual weakness Severe debility -Wheelchair-bound at baseline -Bilateral residual weakness -PT/OT consult pending History of BPH -Continue finasteride and Flomax Seizure disorder recently diagnosed 01/02/19 Continue Keppra 750 mg twice a day, Initiate seizure precautions .DVT PPX lovenox Disposition: DC/TX-03 [facility] CERT Core Measure Documentation - Palliative Care Palliative Care/ Comfort Measures: Not Applicable - Core Measures Any of the following diagnoses?: none Exam - Constitutional Vitals: Temp Pulse Resp BP Pulse Ox 98.7 F 78 20 134/66 96 01/14/19 01:51 01/14/19 10:00 01/14/19 10:00 01/14/19 01:51 01/14/19 10:00 General appearance: Present: no acute distress, well-nourished - EENT Eyes: Present: PERRL ENT: hearing intact, clear oral mucosa - Neck Neck: Present: supple, normal ROM - Respiratory Respiratory effort: normal Respiratory: bilateral: CTA - Cardiovascular Heart rate: 78 Rhythm: regular Heart Sounds: Present: S1 & S2. Absent: rub, click - Extremities Extremities: no ischemia, pulses intact, pulses symmetrical, No edema Peripheral Pulses: within normal limits - Abdominal General gastrointestinal: Present: soft, non-tender, non-distended, normal bowel sounds Male genitourinary: Present: normal - Integumentary Integumentary: Present: clear, warm, dry - Musculoskeletal Musculoskeletal: generalized weakness - Psychiatric Psychiatric: appropriate mood/affect, intact judgment & insight - Neurologic Neurologic: CNII-XII intact, moves all extremities - Allied Health Allied health notes reviewed: nursing, case management Plan Activity: no restrictions Weight Bearing Status: Weight Bear as Tolerated Diet: diabetic Follow up with: PRIMARY CARE, [Primary Care Provider] - 3-5 Days
== END 2019-01-14 18:30 | DRG 871 ==
LOC: ED 18:01 → 2B-ACE 21:04
PROVIDERS: ADMIT Internal Medicine; ATTEND Internal Medicine
DX: A41.9 Sepsis, unspecified organism (principal); G93.41 Metabolic encephalopathy; N39.0 Urinary tract infection, site not specified; I10 Essential (primary) hypertension; E78.5 Hyperlipidemia, unspecified; E78.00 Pure hypercholesterolemia, unspecified; R47.02 Dysphasia; F03.90 Unspecified dementia, unspecified severity, without behavioral disturbance, psychotic disturbance, mood disturbance, and anxiety; N40.0 Benign prostatic hyperplasia without lower urinary tract symptoms; G40.909 Epilepsy, unspecified, not intractable, without status epilepticus; I25.10 Atherosclerotic heart disease of native coronary artery without angina pectoris; Z99.3 Dependence on wheelchair; Z79.82 Long term (current) use of aspirin; Z79.899 Other long term (current) drug therapy; I69.398 Other sequelae of cerebral infarction
CPT/HCPCS: 36415; 70450; 71045; 80048; 80053; 80320; 81001; 82140; 82962; 83036; 83735; 84100; 84439; 84443; 84484; 85014; 85018; 85025; 85027; 85610; 85730; 87040; 87076; 87086; 87186; 93005; 93010; 93306; G0378; G0480; J0692; J0696; J1650; J1953; J3480; J7030

== ENCOUNTER 2019-03-21 13:17 | Inpatient (IN) | payer MEDICARE ==
--- NOTE | 2019-03-21 13:46 | Cat Scan Report ---
CT head/brain wo con INDICATION / CLINICAL INFORMATION: 69 years Male; neuro deficits <6hrs or sx present upon awakening. TECHNIQUE: Routine CT head without contrast. All CT scans at this location are performed using CT dos e reduction for ALARA by means of automated exposure control. COMPARISON: None. FINDINGS: BRAIN / INTRACRANIAL CONTENTS: No acute hemorrhage, mass effect, midline shift, hydrocephalus, or acu te, large territorial infarct. Mild to moderate cerebral atrophy. Multiple, small lacunar infarct suggested in the gangliocapsular r egions. There are moderate, confluent areas of decreased attenuation in the white matter of the cerebral diamond spheres, as well as the gangliocapsular regions. These are nonspecific findings and may be related to microangiopathy (hypertension, diabetes, atherosclerosis), given the patient's age. It might be diff icult to evaluate for small areas of ischemia without diffusion imaging by MRI. CRANIOCERVICAL JUNCTION: No significant abnormality. ORBITS: No significant abnormality of visualized orbits. SINUSES / MASTOIDS: Moderate mucosal thickening seen in the ethmoids. ADDITIONAL FINDINGS: Atherosclerotic disease is seen in the anterior circulation. IMPRESSION: 1. No focal mass, hemorrhage, hydrocephalus, or acute, large territorial infarct. Follow-up with diff usion imaging by MRI, as clinically warranted. Signer Name: Yanick Granados MD, III Signed: 03/21/2019 1:42 PM Workstation Name: [id number]
--- NOTE | 2019-03-21 13:47 | Emergency Department Report ---
ED Neuro Deficit HPI - General Stated Complaint: CVA Time Seen by Provider: 03/21/19 13:40 - History of Present Illness Initial Comments: [facility] Date of service: 03/21/19 Impression: acute onset worsening right facial droop superimposed over baseline right sided weakness - LSN not clear. Recommend admission for stroke workup. - - - Not a tpa candidate due to: mild new deficit - the remainder of which are chronic. Differential Diagnosis: 1. Cardioembolic stroke 2. Small vessel disease/lacune 3. Thromboembolic, [id number] mechanism 4. Hypercoagulable state-related infarct 5. Transient ischemic attack 6. Thrombotic mechanism, large artery disease Comments: Door time: 1317 [facility] contacted: 1321 [facility] at bedside: 1329 NIHSS assessment time: 1332 Recommendations: tele ASA if CT head is neg for hemorrhage - none per my read. DVT proph - lovenox permissive htn PT/OT/speech bedside swallow eval Inpatient neurology consultation Inpatient stroke evaluation as per Neurology/ Internal Medicine Discussed with ED MD Please call with questions --------- CC right facial droop. History of Present Illness Patient is a69 yo man here from [facility] several days ago here with worsening right sided weakness. Exact time LSN is not clear. He has dementia as well. NO LOC/convulsion witness, but he has a hx of seizures and has had urinary incontinence this am. Diagnostic: CT head neg for hemorrhage per my read. Exam: RESULT SUMMARY: 14 points NIH Stroke Scale INPUTS: 1A: Level of consciousness > 0 = Alert; keenly responsive 1B: Ask month and age > 1 = 1 question right 1C: 'Blink eyes' & 'squeeze hands' > 1 = Performs 1 task 2: Horizontal extraocular movements > 2 = Forced gaze palsy: cannot be overcome 3: Visual holman > 0 = No visual loss 4: Facial palsy > 0 = Normal symmetry 5A: Left arm motor drift > 0 = No drift for 10 seconds 5B: Right arm motor drift > 2 = Drift, hits bed 6A: Left leg motor drift > 2 = Some effort against gravity 6B: Right leg motor drift > 3 = No effort against gravity 7: Limb Ataxia > 0 = No ataxia 8: Sensation > 0 = Normal; no sensory loss 9: Language/aphasia > 2 = Severe aphasia: fragmentary expression, inference needed, cannot identify materials 10: Dysarthria > 1 = Mild-moderate dysarthria: slurring but can be understood 11: Extinction/inattention > 0 = No abnormality Medical Decision Making: - Extensive number of diagnosis or management options are considered above. - Extensive amount of complex data reviewed. - High risk of complication and/or morbidity or mortality are associated with differential diagnostic considerations above. - There may be Uncertain outcome and increased probability of prolonged functional impairment or high probability of severe prolonged functional impairm ent associated with some of these differential diagnosis. Medical Data Reviewed: 1.Data reviewed include clinical labs, radiology, Medical Tests; 2.Tests results discussed w/performing or interpreting physician; 3.Obtaining/reviewing old medical records; 4.Obtaining case history from another source; 5.Independent review of image, tracing or specimen. Patient was informed the Neurology Consult would happen via TeleHealth consult by way of interactive audio and video telecommunications and consented to receiving care in this manner. - Related Data Home Medications: Previous Rx's Medication Instructions Recorded Last Taken Type Acetaminophen [Acetaminophen TAB] 650 mg PO Q4H PRN #15 tablet 07/10/18 Unknown Rx Aspirin [Aspirin BABY CHEW TAB] 1 tab PO DAILY #30 tab.chew 01/14/19 Unknown Rx AtorvaSTATin 80 mg PO DAILY #30 01/14/19 Unknown Rx Cefuroxime Axetil [Ceftin] 500 mg PO Q12H #10 ml 01/14/19 Unknown Rx Clopidogrel [Plavix] 75 mg PO QDAY #30 tablet 01/14/19 Unknown Rx Finasteride 5 mg PO DAILY #30 01/14/19 Unknown Rx Tamsulosin 0.4 mg PO HS #30 01/14/19 Unknown Rx Triamter/Hctz 37.5-25 mg 1 tab PO QDAY #30 tablet 01/14/19 Unknown Rx [Maxzide-25] amLODIPine [Norvasc] 10 mg PO DAILY #30 tablet 01/14/19 Unknown Rx levETIRAcetam [Keppra TAB] 750 mg PO BID #60 tablet 01/14/19 Unknown Rx Allergies/Adverse Reactions: Allergies Allergy/AdvReac Type Severity Reaction Status Date / Time No Known Allergies Allergy Unverified 04/14/13 15:08 ED Review of Systems ROS: Stated complaint: CVA Other details as noted in HPI ED Past Medical Hx - Past Medical History Hx Hypertension: Yes Hx CVA: Yes (1991) Hx Congestive Heart Failure: No Hx Diabetes: Yes Hx Arthritis: Yes Hx Seizures: Yes Hx Asthma: No Hx COPD: No Hx Dementia: Yes Hx HIV: No Additional medical history: high cholesterol - Surgical History Additional Surgical History: cva 1989 - Social History Smoking Status: Never Smoker Substance Use Type: None - Medications Home Medications: Home Medications Medication Instructions Recorded Confirmed Last Taken Type Acetaminophen [Acetaminophen TAB] 650 mg PO Q4H PRN #15 tablet 07/10/18 01/08/19 Unknown Rx Aspirin [Aspirin BABY CHEW TAB] 1 tab PO DAILY #30 tab.chew 01/14/19 Unknown Rx AtorvaSTATin 80 mg PO DAILY #30 01/14/19 Unknown Rx Cefuroxime Axetil [Ceftin] 500 mg PO Q12H #10 ml 01/14/19 Unknown Rx Clopidogrel [Plavix] 75 mg PO QDAY #30 tablet 01/14/19 Unknown Rx Finasteride 5 mg PO DAILY #30 01/14/19 Unknown Rx Tamsulosin 0.4 mg PO HS #30 01/14/19 Unknown Rx Triamter/Hctz 37.5-25 mg 1 tab PO QDAY #30 tablet 01/14/19 Unknown Rx [Maxzide-25] amLODIPine [Norvasc] 10 mg PO DAILY #30 tablet 01/14/19 Unknown Rx levETIRAcetam [Keppra TAB] 750 mg PO BID #60 tablet 01/14/19 Unknown Rx ED Neuro Physical Exam - General Suspected Stroke: Yes - NIHSS Assessment Interval: Baseline 1a. Level of Consciousness: alert/keenly responsive 1b. LOC Questions: answers no questions correctly 1c. LOC Commands: performs 1 task correctly 2. Best Gaze: corrects with occulocephalic reflex 3. Visual: no visual loss 4. Facial Palsy: normal symmetrical movement 5b. Motor Arm Right: some gravity effort 5a. Motor Arm Left: no drift 6a. Motor Leg Left: some gravity effort 6b. Motor Leg Right: no gravity effort 7. Limb Ataxia: absent 8. Sensory: normal 9. Best Language: severe aphasia 10. Dysarthria: mild/moderate dysarthria 11. Extinction/Inattention: no abnormality Total Score: 14 Stroke Severity: Moderate Stroke Critical care attestation.: If time is entered above; I have spent that time in minutes in the direct care of this critically ill patient, excluding procedure time. ED Disposition Clinical Impression: Right sided weakness, History of CVA (cerebrovascular accident) Disposition: OP ADMIT IP TO THIS HOSP Is pt being admited?: Yes Condition: Stable
--- NOTE | 2019-03-21 13:52 | Emergency Department Report ---
ED Neuro Deficit HPI - General Stated Complaint: CVA Time Seen by Provider: 03/21/19 13:40 - History of Present Illness Initial Comments: 69-year-old male with history of seizures, dementia, CVA with right-sided deficits sent from group home for worsening facial droop and drooling. [facility] sent patient to ER today after family noticed on yesterday that his right-sided weakness appeared to be worse. Last known normal was more than 24 hours ago. Patient appears to have urinated on himself. Patient is intermittently crying. -: days(s) (1) Location: right arm, right leg, other (facial droop) Presenting Symptoms: Present: Weak/Paralyzed One Side, Facial Droop/Numbness History of same: Yes Place: home Severity: moderate Quality: weak, constant Improves With: none Worsens With: none - Related Data Home Medications: Home Medications Medication Instructions Recorded Confirmed Last Taken Aspirin EC [Halfprin EC] 81 mg PO QDAY 03/21/19 03/21/19 Unknown Atorvastatin [Lipitor Tab] 80 mg PO DAILY 03/21/19 03/21/19 Unknown Chlorhexidine Gluconate [Paroex] 15 ml MM 0900,1700 03/21/19 03/21/19 Unknown Finasteride [Proscar] 5 mg PO DAILY 03/21/19 03/21/19 Unknown Tamsulosin [Flomax] 0.4 mg PO HS 03/21/19 03/21/19 Unknown levETIRAcetam [Keppra TAB] 750 mg PO 0900,1700 03/21/19 03/21/19 Unknown Previous Rx's Medication Instructions Recorded Last Taken Type Acetaminophen [Acetaminophen TAB] 650 mg PO Q4H PRN #15 tablet 07/10/18 Unknown Rx Clopidogrel [Plavix] 75 mg PO QDAY #30 tablet 01/14/19 Unknown Rx Triamter/Hctz 37.5-25 mg 1 tab PO QDAY #30 tablet 01/14/19 Unknown Rx [Maxzide-25] amLODIPine [Norvasc] 10 mg PO DAILY #30 tablet 01/14/19 Unknown Rx Allergies/Adverse Reactions: Allergies Allergy/AdvReac Type Severity Reaction Status Date / Time No Known Allergies Allergy Unverified 04/14/13 15:08 ED Review of Systems ROS: Stated complaint: CVA Other details as noted in HPI Comment: Unobtainable due to pts medical conditions ED Past Medical Hx - Past Medical History Hx Hypertension: Yes Hx CVA: Yes (1991) Hx Congestive Heart Failure: No Hx Diabetes: Yes Hx Arthritis: Yes Hx Seizures: Yes Hx Asthma: No Hx COPD: No Hx Dementia: Yes Hx HIV: No Additional medical history: high cholesterol - Surgical History Additional Surgical History: cva 1989 - Social History Smoking Status: Never Smoker Substance Use Type: None - Medications Home Medications: Home Medications Medication Instructions Recorded Confirmed Last Taken Type Acetaminophen [Acetaminophen TAB] 650 mg PO Q4H PRN #15 tablet 07/10/18 03/21/19 Unknown Rx Clopidogrel [Plavix] 75 mg PO QDAY #30 tablet 01/14/19 03/21/19 Unknown Rx Triamter/Hctz 37.5-25 mg 1 tab PO QDAY #30 tablet 01/14/19 03/21/19 Unknown Rx [Maxzide-25] amLODIPine [Norvasc] 10 mg PO DAILY #30 tablet 01/14/19 03/21/19 Unknown Rx Aspirin EC [Halfprin EC] 81 mg PO QDAY 03/21/19 03/21/19 Unknown History Atorvastatin [Lipitor Tab] 80 mg PO DAILY 03/21/19 03/21/19 Unknown History Chlorhexidine Gluconate [Paroex] 15 ml MM 0900,1700 03/21/19 03/21/19 Unknown History Finasteride [Proscar] 5 mg PO DAILY 03/21/19 03/21/19 Unknown History Tamsulosin [Flomax] 0.4 mg PO HS 03/21/19 03/21/19 Unknown History levETIRAcetam [Keppra TAB] 750 mg PO 0900,1700 03/21/19 03/21/19 Unknown History ED Neuro Physical Exam - General General appearance: alert Suspected Stroke: Yes - Head Head exam: Present: atraumatic, normocephalic - Eye Eye exam: Present: normal appearance - ENT ENT exam: Present: mucous membranes moist - Neck Neck exam: Present: normal inspection - Respiratory Respiratory exam: Present: normal lung sounds bilaterally. Absent: respiratory distress - Cardiovascular Cardiovascular Exam: Present: regular rate, normal rhythm - GI/Abdominal GI/Abdominal exam: Present: soft. Absent: distended, tenderness - Extremities Exam Extremities exam: Present: other (contracture noted of the right lower extremity) - Neurological Exam Neurological exam: Present: alert - NIHSS Assessment Interval: Baseline 1a. Level of Consciousness: alert/keenly responsive 1b. LOC Questions: answers 1 question correctly 1c. LOC Commands: performs 1 task correctly 2. Best Gaze: forced deviation 3. Visual: no visual loss 4. Facial Palsy: normal symmetrical movement 5b. Motor Arm Right: some gravity effort 5a. Motor Arm Left: no drift 6a. Motor Leg Left: some gravity effort 6b. Motor Leg Right: no gravity effort 7. Limb Ataxia: absent 8. Sensory: normal 9. Best Language: severe aphasia 10. Dysarthria: mild/moderate dysarthria 11. Extinction/Inattention: no abnormality Total Score: 14 Stroke Severity: Moderate Stroke - Skin Skin exam: Present: warm, dry, intact, normal color ED Course Vital Signs 03/21/19 03/21/19 03/21/19 13:17 14:31 15:30 Temperature 97.7 F Pulse Rate 78 86 75 Respiratory 16 166 H 16 Rate Blood Pressure 134/69 Blood Pressure 107/66 131/61 [Left] O2 Sat by Pulse 100 98 98 Oximetry 03/21/19 18:04 Temperature 98.8 F Pulse Rate 78 Respiratory 16 Rate Blood Pressure Blood Pressure 131/61 [Left] O2 Sat by Pulse 100 Oximetry - Reevaluation(s) Reevaluation #1: 03/21/19 14:00 Patient now able to state that he is 69 years old and that he is in the emergency room. Patient is still incorrect about the year, stating that it is 1998. Mental status seems to be improving. Patient states that he does not feel any increased weakness on his right side. - Lab Data Result diagrams: 03/21/19 13:28 03/21/19 13:28 Lab Results 03/21/19 03/21/19 03/21/19 Range/Units 13:28 13:28 13:28 WBC 6.7 (4.5-11.0) K/mm3 RBC 4.96 (3.65-5.03) M/mm3 Hgb 14.9 (11.8-15.2) gm/dl Hct 45.7 H (35.5-45.6) % MCV 92 (84-94) fl MCH 30 (28-32) pg MCHC 33 (32-34) % RDW 14.1 (13.2-15.2) % Plt Count 301 (140-440) K/mm3 Lymph % (Auto) 21.9 (13.4-35.0) % [place] % (Auto) 9.7 H (0.0-7.3) % Eos % (Auto) 2.4 (0.0-4.3) % Baso % (Auto) 0.8 (0.0-1.8) % Lymph # 1.5 (1.2-5.4) K/mm3 [place] # 0.7 (0.0-0.8) K/mm3 Eos # 0.2 (0.0-0.4) K/mm3 Baso # 0.1 (0.0-0.1) K/mm3 Seg Neutrophils % 65.2 (40.0-70.0) % Seg Neutrophils # 4.4 (1.8-7.7) K/mm3 PT 14.1 (12.2-14.9) Sec. INR 1.12 (0.87-1.13) APTT 29.3 (24.2-36.6) Sec. Thrombin Time 18.2 (15.1-19.6) Sec. Sodium 140 (137-145) mmol/L Potassium 3.3 L (3.6-5.0) mmol/L Chloride 99.5 (98-107) mmol/L Carbon Dioxide 25 (22-30) mmol/L Anion Gap 19 mmol/L BUN 13 (9-20) mg/dL Creatinine 0.8 (0.8-1.5) mg/dL Estimated GFR > 60 ml/min BUN/Creatinine Ratio 16 % Glucose 133 H (75-100) mg/dL POC Glucose (70-105) Calcium 9.5 (8.4-10.2) mg/dL Total Bilirubin (0.1-1.2) mg/dL Direct Bilirubin (0-0.2) mg/dL Indirect Bilirubin mg/dL AST (5-40) units/L ALT (7-56) units/L Alkaline Phosphatase (35-129) units/L Troponin T < 0.010 (0.00-0.029) ng/mL Total Protein (6.3-8.2) g/dL Albumin (3.9-5) g/dL Albumin/Globulin Ratio % Urine Color (Yellow) Urine Turbidity (Clear) Urine pH (5.0-7.0) Ur Specific [place] (1.003-1.030) Urine Protein (Negative) mg/dL Urine Glucose (UA) (Negative) mg/dL Urine Ketones (Negative) mg/dL Urine Blood (Negative) Urine Nitrite (Negative) Urine Bilirubin (Negative) Urine Urobilinogen (<2.0) mg/dL Ur Leukocyte Esterase (Negative) Urine WBC (Auto) (0.0-6.0) /HPF Urine RBC (Auto) (0.0-6.0) /HPF Urine Bacteria (Auto) (Negative) /HPF 03/21/19 03/21/19 03/21/19 Range/Units 13:28 13:39 14:05 WBC (4.5-11.0) K/mm3 RBC (3.65-5.03) M/mm3 Hgb (11.8-15.2) gm/dl Hct (35.5-45.6) % MCV (84-94) fl MCH (28-32) pg MCHC (32-34) % RDW (13.2-15.2) % Plt Count (140-440) K/mm3 Lymph % (Auto) (13.4-35.0) % [place] % (Auto) (0.0-7.3) % Eos % (Auto) (0.0-4.3) % Baso % (Auto) (0.0-1.8) % Lymph # (1.2-5.4) K/mm3 [place] # (0.0-0.8) K/mm3 Eos # (0.0-0.4) K/mm3 Baso # (0.0-0.1) K/mm3 Seg Neutrophils % (40.0-70.0) % Seg Neutrophils # (1.8-7.7) K/mm3 PT (12.2-14.9) Sec. INR (0.87-1.13) APTT (24.2-36.6) Sec. Thrombin Time (15.1-19.6) Sec. Sodium (137-145) mmol/L Potassium (3.6-5.0) mmol/L Chloride (98-107) mmol/L Carbon Dioxide (22-30) mmol/L Anion Gap mmol/L BUN (9-20) mg/dL Creatinine (0.8-1.5) mg/dL Estimated GFR ml/min BUN/Creatinine Ratio % Glucose (75-100) mg/dL POC Glucose 117 H (70-105) Calcium (8.4-10.2) mg/dL Total Bilirubin 0.50 (0.1-1.2) mg/dL Direct Bilirubin < 0.2 (0-0.2) mg/dL Indirect Bilirubin 0.3 mg/dL AST 22 (5-40) units/L ALT 18 (7-56) units/L Alkaline Phosphatase 97 (35-129) units/L Troponin T (0.00-0.029) ng/mL Total Protein 7.2 (6.3-8.2) g/dL Albumin 3.7 L (3.9-5) g/dL Albumin/Globulin Ratio 1.1 % Urine Color Yellow (Yellow) Urine Turbidity Slightly-cloudy (Clear) Urine pH 6.0 (5.0-7.0) Ur Specific [place] 1.015 (1.003-1.030) Urine Protein <15 mg/dl (Negative) mg/dL Urine Glucose (UA) Neg (Negative) mg/dL Urine Ketones Neg (Negative) mg/dL Urine Blood Sm (Negative) Urine Nitrite Neg (Negative) Urine Bilirubin Neg (Negative) Urine Urobilinogen 4.0 (<2.0) mg/dL Ur Leukocyte Esterase Tr (Negative) Urine WBC (Auto) 5.0 (0.0-6.0) /HPF Urine RBC (Auto) 10.0 (0.0-6.0) /HPF Urine Bacteria (Auto) 1+ (Negative) /HPF - Radiology Data Radiology results: report reviewed, image reviewed - Medical Decision Making 69-year-old male sent to ED from group home due to possible worsening right- sided weakness, worsening facial droop, and drooling. Last known well more than [address] head negative for any acute findings. Patient initially with the NIH score of 14, stating that he was 29 years old, and not knowing where he was. Patient had obviously had an episode of urinary incontinence, when initially presented he was emotionally labile, with episodes of crying. Patient does have history of seizures and is on Keppra for his seizures. Keppra 1000 mg was given for possible seizure. After reevaluation patient was more alert, able to state his actual age been able to state that he was in the emergency room. Patient does have a history of dementia, initially when reevaluated I asked him if he felt as if his right-sided weakness was at baseline or worse he stated that it was at baseline. When I later asked him began about his weakness, he stated that he did feel as if his right side was more weak than us ual. Labs are unremarkable, vitals were normal. Patient will be admitted to hospitalists for further evaluation. - Differential Diagnosis seizure, CVA,, infection Critical Care Time: Yes Critical care time in (mins) excluding proc time.: 35 Critical care attestation.: If time is entered above; I have spent that time in minutes in the direct care of this critically ill patient, excluding procedure time. Critical Care Time: 35 minutes ED Disposition Clinical Impression: Right sided weakness, History of CVA (cerebrovascular accident) Disposition: DC-09 OP ADMIT IP TO THIS HOSP Is pt being admited?: Yes Condition: Stable
[2019-03-21 13:54] LABS: Basophils # (Auto) 0.1 K/mm3 (0.0-0.1); Basophils % (Auto) 0.8 % (0.0-1.8); Eosinophils # (Auto) 0.2 K/mm3 (0.0-0.4); Eosinophils % (Auto) 2.4 % (0.0-4.3); Hematocrit 45.7 % (35.5-45.6); Hemoglobin 14.9 gm/dl (11.8-15.2); Lymphocytes # (Auto) 1.5 K/mm3 (1.2-5.4); Lymphocytes % (Auto) 21.9 % (13.4-35.0); Mean Corpuscular HGB Conc 33 % (32-34); Mean Corpuscular Volume 92 fl (84-94); Monocytes # (Auto) 0.7 K/mm3 (0.0-0.8); Monocytes % (Auto) 9.7 % (0.0-7.3); Platelet Count 301 K/mm3 (140-440); Red Blood Count 4.96 M/mm3 (3.65-5.03); Red Cell Distribution Width 14.1 % (13.2-15.2)
[2019-03-21] MEDS ORDERED: levETIRAcetam 1,000 MG in SODIUM CHLORIDE 0.9% 100 ML IV ONE (14:01)
[2019-03-21 14:05] LABS: INR 1.12 (0.87-1.13)
[2019-03-21 14:06] LABS: BUN/Creatinine Ratio 16; Blood Urea Nitrogen 13 mg/dL (9-20); Calcium 9.5 mg/dL (8.4-10.2); Hemolysis Index 8; Partial Thromboplastin Time 29.3 Sec. (24.2-36.6); Thrombin Time 18.2 Sec. (15.1-19.6)
[2019-03-21] MEDS ORDERED: levETIRAcetam 1000 MG/NS 0.75% 1,000 MG/100 ML BAG IV ONE (14:09)
[2019-03-21 14:20] LABS: Alanine Aminotransferase 18 units/L (7-56); Albumin 3.7 g/dL (3.9-5)
[2019-03-21 14:32] LABS: Bilirubin,Direct < 0.2 mg/dL (0-0.2)
[2019-03-21 14:51] LABS: Bacteria,Urine 1+ /HPF (Negative); Bilirubin,Urine NEG (Negative); Blood,Urine SM (Negative); Color,Urine Yellow (Yellow); Protein,Urine <15 mg/dL mg/dL (Negative)
--- NOTE | 2019-03-21 18:16 | History and Physical Report ---
History of Present Illness Date of examination: 03/21/19 Date of admission: 03/21/19 16:36 Chief complaint: Increasing right-sided weakness and dysarthria for 1 day History of present illness: 69-year-old -[place] male--alf resident sent for increasing weakness on the right side and increasing dysarthria. Patient is alert but confused more than the usual. Alert to person but not time and place. No seizures or syncope. No fever or chills. Patient came to the ER for on 03/13/2019 for the same symptoms and was discharged after evaluation. ER note from 03/13/19 7 03/13/19--ED note 03/13/19 69-year-old -Pak[place] female who is a alf resident with history of CVA, DM 2, HTN, HLD, chronic dysphasia, severe debility, and seizure disorder who presents to the ED via EMS with complaints of appearing weaker than usual. Patient with residual weaknesses in bilateral upper and lower ext. was seen by family two days ago at alf who recommended that the patient be sent to ER for further evaluation for worsening right sided weakness. In ER patient states that he feels at baseline and doesn't know why he is here. Past Medical History Hypertension: Yes CVA: Yes (1991) Diabetes: Yes Arthritis: Yes Seizures: Yes Dementia: Yes Additional medical history: high cholesterol Surgical History Additional Surgical History: cva 1989 Social History Smoking Status: Never Smoker Substance Use Type: None Family History Htn - Medications Home Medications: Home Medications Medication Instructions Recorded Confirmed Last Taken Type Acetaminophen [Acetaminophen TAB] 650 mg PO Q4H PRN #15 tablet 07/10/18 01/08/19 Unknown Rx Aspirin [Aspirin BABY CHEW TAB] 1 tab PO DAILY #30 tab.chew 01/14/19 Unknown Rx AtorvaSTATin 80 mg PO DAILY #30 01/14/19 Unknown Rx Cefuroxime Axetil [Ceftin] 500 mg PO Q12H #10 ml 01/14/19 Unknown Rx Clopidogrel [Plavix] 75 mg PO QDAY #30 tablet 01/14/19 Unknown Rx Finasteride 5 mg PO DAILY #30 01/14/19 Unknown Rx Tamsulosin 0.4 mg PO HS #30 01/14/19 Unknown Rx Triamter/Hctz 37.5-25 mg 1 tab PO QDAY #30 tablet 01/14/19 Unknown Rx [Maxzide-25] amLODIPine [Norvasc] 10 mg PO DAILY #30 tablet 01/14/19 Unknown Rx levETIRAcetam [Keppra TAB] 750 mg PO BID #60 tablet 01/14/19 Unknown Rx Review of Systems ROS: Stated complaint: Rt sided weakness Other details as noted in HPI Medications and Allergies Allergies Allergy/AdvReac Type Severity Reaction Status Date / Time No Known Allergies Allergy Unverified 04/14/13 15:08 Home Medications Medication Instructions Recorded Confirmed Last Taken Type Acetaminophen [Acetaminophen TAB] 650 mg PO Q4H PRN #15 tablet 07/10/18 03/21/19 Unknown Rx Clopidogrel [Plavix] 75 mg PO QDAY #30 tablet 01/14/19 03/21/19 Unknown Rx Triamter/Hctz 37.5-25 mg 1 tab PO QDAY #30 tablet 01/14/19 03/21/19 Unknown Rx [Maxzide-25] amLODIPine [Norvasc] 10 mg PO DAILY #30 tablet 01/14/19 03/21/19 Unknown Rx Aspirin EC [Halfprin EC] 81 mg PO QDAY 03/21/19 03/21/19 Unknown History Atorvastatin [Lipitor Tab] 80 mg PO DAILY 03/21/19 03/21/19 Unknown History Chlorhexidine Gluconate [Paroex] 15 ml MM 0900,1700 03/21/19 03/21/19 Unknown Hi story Finasteride [Proscar] 5 mg PO DAILY 03/21/19 03/21/19 Unknown History Tamsulosin [Flomax] 0.4 mg PO HS 03/21/19 03/21/19 Unknown History levETIRAcetam [Keppra TAB] 750 mg PO 0900,1700 03/21/19 03/21/19 Unknown History Exam - Constitutional Vitals: Temp Pulse Resp BP Pulse Ox 98.8 F 78 16 131/61 100 03/21/19 18:04 03/21/19 18:04 03/21/19 18:04 03/21/19 18:04 03/21/19 18:04 General appearance: Present: no acute distress, well-nourished - EENT Eyes: Present: PERRL ENT: hearing intact, clear oral mucosa - Neck Neck: Present: supple, normal ROM - Respiratory Respiratory effort: normal Respiratory: bilateral: CTA - Cardiovascular Heart rate: 93 Rhythm: irregularly irregular Heart Sounds: Present: S1 & S2. Absent: rub, click - Extremities Extremities: no ischemia, pulses intact, pulses symmetrical, No edema Peripheral Pulses: within normal limits - Abdominal General gastrointestinal: Present: soft, non-tender, non-distended, normal bowel sounds Male genitourinary: Present: normal - Rectal Rectal Exam: deferred - Integumentary Integumentary: Present: clear, warm, dry - Musculoskeletal Musculoskeletal: right sided weakness - Psychiatric Psychiatric: appropriate mood/affect, memory intact (Alert and oriented x1) - Neurologic Neurologic: CNII-XII intact, moves all extremities - Allied Health Allied health notes reviewed: nursing, case management Results - Labs CBC & Chem 7: 03/21/19 13:28 03/21/19 13:28 Labs: Laboratory Last Values WBC 6.7 K/mm3 (4.5-11.0) 03/21/19 13:28 RBC 4.96 M/mm3 (3.65-5.03) 03/21/19 13:28 Hgb 14.9 gm/dl (11.8-15.2) 03/21/19 13:28 Hct 45.7 % (35.5-45.6) H 03/21/19 13:28 MCV 92 fl (84-94) 03/21/19 13:28 MCH 30 pg (28-32) 03/21/19 13:28 MCHC 33 % (32-34) 03/21/19 13:28 RDW 14.1 % (13.2-15.2) 03/21/19 13:28 Plt Count 301 K/mm3 (140-440) 03/21/19 13:28 Lymph % (Auto) 21.9 % (13.4-35.0) 03/21/19 13:28 [place] % (Auto) 9.7 % (0.0-7.3) H 03/21/19 13:28 Eos % (Auto) 2.4 % (0.0-4.3) 03/21/19 13:28 Baso % (Auto) 0.8 % (0.0-1.8) 03/21/19 13:28 Lymph # 1.5 K/mm3 (1.2-5.4) 03/21/19 13:28 [place] # 0.7 K/mm3 (0.0-0.8) 03/21/19 13:28 Eos # 0.2 K/mm3 (0.0-0.4) 03/21/19 13:28 Baso # 0.1 K/mm3 (0.0-0.1) 03/21/19 13:28 Seg Neutrophils % 65.2 % (40.0-70.0) 03/21/19 13:28 Seg Neutrophils # 4.4 K/mm3 (1.8-7.7) 03/21/19 13:28 PT 14.1 Sec. (12.2-14.9) 03/21/19 13:28 INR 1.12 (0.87-1.13) 03/21/19 13:28 APTT 29.3 Sec. (24.2-36.6) 03/21/19 13:28 Thrombin Time 18.2 Sec. (15.1-19.6) 03/21/19 13:28 Sodium 140 mmol/L (137-145) 03/21/19 13:28 Potassium 3.3 mmol/L (3.6-5.0) L 03/21/19 13:28 Chloride 99.5 mmol/L (98-107) 03/21/19 13:28 Carbon Dioxide 25 mmol/L (22-30) 03/21/19 13:28 Anion Gap 19 mmol/L 03/21/19 13:28 BUN 13 mg/dL (9-20) 03/21/19 13:28 Creatinine 0.8 mg/dL (0.8-1.5) 03/21/19 13:28 Estimated GFR > 60 ml/min 03/21/19 13:28 BUN/Creatinine Ratio 16 % 03/21/19 13:28 Glucose 133 mg/dL (75-100) H 03/21/19 13:28 POC Glucose 117 (70-105) H 03/21/19 13:39 Calcium 9.5 mg/dL (8.4-10.2) 03/21/19 13:28 Total Bilirubin 0.50 mg/dL (0.1-1.2) 03/21/19 13:28 Direct Bilirubin < 0.2 mg/dL (0-0.2) 03/21/19 13:28 Indirect Bilirubin 0.3 mg/dL 03/21/19 13:28 AST 22 units/L (5-40) 03/21/19 13:28 ALT 18 units/L (7-56) 03/21/19 13:28 Alkaline Phosphatase 97 units/L (35-129) 03/21/19 13:28 Troponin T < 0.010 ng/mL (0.00-0.029) 03/21/19 13:28 Total Protein 7.2 g/dL (6.3-8.2) 03/21/19 13:28 Albumin 3.7 g/dL (3.9-5) L 03/21/19 13:28 Albumin/Globulin Ratio 1.1 % 03/21/19 13:28 Urine Color Yellow (Yellow) 03/21/19 14:05 Urine Turbidity Slightly-cloudy (Clear) 03/21/19 14:05 Urine pH 6.0 (5.0-7.0) 03/21/19 14:05 Ur Specific [place] 1.015 (1.003-1.030) 03/21/19 14:05 Urine Protein <15 mg/dl mg/dL (Negative) 03/21/19 14:05 Urine Glucose (UA) Neg mg/dL (Negative) 03/21/19 14:05 Urine Ketones Neg mg/dL (Negative) 03/21/19 14:05 Urine Blood Sm (Negative) 03/21/19 14:05 Urine Nitrite Neg (Negative) 03/21/19 14:05 Urine Bilirubin Neg (Negative) 03/21/19 14:05 Urine Urobilinogen 4.0 mg/dL (<2.0) 03/21/19 14:05 Ur Leukocyte Esterase Tr (Negative) 03/21/19 14:05 Urine WBC (Auto) 5.0 /HPF (0.0-6.0) 03/21/19 14:05 Urine RBC (Auto) 10.0 /HPF (0.0-6.0) 03/21/19 14:05 Urine Bacteria (Auto) 1+ /HPF (Negative) 03/21/19 14:05 Short CBC 03/21/19 Range/Units 13:28 WBC 6.7 (4.5-11.0) K/mm3 Hgb 14.9 (11.8-15.2) gm/dl Hct 45.7 H (35.5-45.6) % Plt Count 301 (140-440) K/mm3 BMP 03/21/19 13:28 Sodium 140 Potassium 3.3 L Chloride 99.5 Carbon Dioxide 25 BUN 13 Creatinine 0.8 Glucose 133 H Calcium 9.5 Cardiac Enzymes 03/21/19 Range/Units 13:28 Troponin T < 0.010 (0.00-0.029) ng/mL Liver Function 03/21/19 Range/Units 13:28 Total Bilirubin 0.50 (0.1-1.2) mg/dL Direct Bilirubin < 0.2 (0-0.2) mg/dL AST 22 (5-40) units/L ALT 18 (7-56) units/L Alkaline Phosphatase 97 (35-129) units/L Albumin 3.7 L (3.9-5) g/dL Urine 03/21/19 Range/Units 14:05 Urine Color Yellow (Yellow) Urine pH 6.0 (5.0-7.0) Ur Specific [place] 1.015 (1.003-1.030) Urine Protein <15 mg/dl (Negative) mg/dL Urine Glucose (UA) Neg (Negative) mg/dL - Imaging and Cardiology EKG: report reviewed (atrial fibrillation with heart rate of 93/m) CT Scan - head: report reviewed ( in general, this) Imaging and Cardiology: Head CT IMPRESSION: 1. No focal mass, hemorrhage, hydrocephalus, or acute, large territorial infarct. Follow-up with diffusion imaging by MRI, as clinically warranted. Assessment and Plan Advance Directives: Yes (Full code) VTE prophylaxis?: Chemical Plan of care discussed with patient/family: Yes - Patient Problems (1) Acute CVA (cerebrovascular accident) Current Visit: Yes Status: Acute Plan to address problem: MRI of the brain ordered MRA carotid duplex scan and echo were not ordered because of her done recently Neurology consult requested CVA protocol initiated (2) HTN (hypertension) Current Visit: No Status: Chronic Qualifiers: Hypertension type: essential hypertension Qualified Code(s): I10 - Essential (primary) hypertension Plan to address problem: Continue antihypertensives Keep blood pressure around 160/90 (3) Seizure disorder Current Visit: No Status: Chronic Plan to address problem: Continue Keppra 750 mg twice a day (4) Hypokalemia Current Visit: Yes Status: Acute Plan to address problem: Supplemented (5) Atrial fibrillation Current Visit: Yes Status: Chronic Qualifiers: Atrial fibrillation type: chronic Qualified Code(s): I48.2 - Chronic atrial fibrillation Plan to address problem: Continue Plavix No ginna blocking agents because he had bradycardia in the previous admission (6) BPH (benign prostatic hyperplasia) Current Visit: Yes Status: Chronic Qualifiers: Lower urinary tract symptom presence: symptoms present Plan to address problem: Continue Flomax and Proscar (7) Hyperlipidemia Current Visit: No Status: Chronic Qualifiers: Hyperlipidemia type: mixed hyperlipidemia Qualified Code(s): E78.2 - Mixed hyperlipidemia Plan to address problem: Continue statins (8) DVT prophylaxis Current Visit: Yes Status: Acute Plan to address problem: On Lovenox and GI prophylaxis
[2019-03-21] MEDS ORDERED: ACETAMINOPHEN 325 MG TAB PO PRN ×2 (20:06→20:13)
[2019-03-21] MEDS ORDERED: ONDANSETRON 4 MG/2 ML INJ IV PRN (20:13)
[2019-03-21] MEDS ORDERED: oxyCODONE /ACETAMINOPHEN 5-325MG TAB PO PRN (20:14)
[2019-03-21] MEDS ORDERED: HYDROmorphone 1 MG/1 ML INJ IV PRN (20:14)
[2019-03-21] MEDS ORDERED: NON-FORMULARY EACH (Atorvastatin [Lipitor] 80 MG) PO SCH (20:15)
[2019-03-21] MEDS ORDERED: POTASSIUM CHLORIDE ER 20 MEQ TAB PO ONE (20:28)
[2019-03-21] MEDS ORDERED: SODIUM CHLORIDE 0.9% 1000 ML 1,000 ML IV SCH (21:00)
[2019-03-21] MEDS ORDERED: ASPIRIN EC 81 MG TAB PO SCH (21:00)
[2019-03-21] MEDS: TRIAMTER/HCTZ 37.5-25 MG TAB PO SCH (21:42)
[2019-03-21] MEDS: amLODIPine 10 MG TAB PO SCH (21:42)
[2019-03-21] MEDS: ASPIRIN 325 MG TAB PO SCH (21:42)
[2019-03-21] MEDS: FINASTERIDE 5 MG TAB PO SCH (21:43)
[2019-03-21] MEDS: CLOPIDOGREL 75 MG TAB PO SCH (21:43)
[2019-03-21] MEDS: TAMSULOSIN 0.4 MG CAP PO SCH (21:43)
[2019-03-21] MEDS: FAMOTIDINE 20 MG TAB PO SCH (21:45)
[2019-03-22 05:01] LABS: Basophils % (Auto) 0.8 % (0.0-1.8); Eosinophils # (Auto) 0.2 K/mm3 (0.0-0.4); Eosinophils % (Auto) 4.3 % (0.0-4.3); Hematocrit 42.4 % (35.5-45.6); Hemoglobin 14.2 gm/dl (11.8-15.2); Lymphocytes # (Auto) 1.4 K/mm3 (1.2-5.4); Lymphocytes % (Auto) 32.4 % (13.4-35.0); Mean Corpuscular HGB Conc 34 % (32-34); Mean Corpuscular Volume 91 fl (84-94); Monocytes # (Auto) 0.5 K/mm3 (0.0-0.8); Platelet Count 261 K/mm3 (140-440); Red Blood Count 4.68 M/mm3 (3.65-5.03)
[2019-03-22 06:10] LABS: Alanine Aminotransferase 15 units/L (7-56); Albumin 3.4 g/dL (3.9-5); BUN/Creatinine Ratio 16; Blood Urea Nitrogen 11 mg/dL (9-20); Calcium 9.1 mg/dL (8.4-10.2); Chol/HDL Ratio 2.53 %; HDL Cholesterol 39 mg/dL (40-59); Hemolysis Index 3; LDL Cholesterol,Direct 53 mg/dL (50-130)
[2019-03-22] MEDS ORDERED: NON-FORMULARY EACH (Levetiracetam [Keppra Tab] 750 MG) PO SCH (09:00)
--- NOTE | 2019-03-22 09:01 | Consultation ---
Medications and Allergies Allergies Allergy/AdvReac Type Severity Reaction Status Date / Time No Known Allergies Allergy Unverified 04/14/13 15:08 Home Medications Medication Instructions Recorded Confirmed Last Taken Type Acetaminophen [Acetaminophen TAB] 650 mg PO Q4H PRN #15 tablet 07/10/18 03/21/19 Unknown Rx Clopidogrel [Plavix] 75 mg PO QDAY #30 tablet 01/14/19 03/21/19 Unknown Rx Triamter/Hctz 37.5-25 mg 1 tab PO QDAY #30 tablet 01/14/19 03/21/19 Unknown Rx [Maxzide-25] amLODIPine [Norvasc] 10 mg PO DAILY #30 tablet 01/14/19 03/21/19 Unknown Rx Aspirin EC [Halfprin EC] 81 mg PO QDAY 03/21/19 03/21/19 Unknown History Atorvastatin [Lipitor Tab] 80 mg PO DAILY 03/21/19 03/21/19 Unknown History Chlorhexidine Gluconate [Paroex] 15 ml MM 0900,1700 03/21/19 03/21/19 Unknown History Finasteride [Proscar] 5 mg PO DAILY 03/21/19 03/21/19 Unknown History Tamsulosin [Flomax] 0.4 mg PO HS 03/21/19 03/21/19 Unknown History levETIRAcetam [Keppra TAB] 750 mg PO 0900,1700 03/21/19 03/21/19 Unknown History Active Meds: Active Medications Acetaminophen (Tylenol) 650 mg PO Q4H PRN PRN Reason: Pain MILD(1-3)/Fever >100.5/FORMAN Amlodipine Besylate (Norvasc) 10 mg PO DAILY [facility] Last Admin: 03/21/19 21:42 Dose: 10 mg Documented by: Aspirin (Aspirin) 325 mg PO QDAY [facility] Last Admin: 03/21/19 21:42 Dose: 325 mg Documented by: Atorvastatin Calcium (Lipitor) 80 mg PO QHS [facility] Last Admin: 03/21/19 21:43 Dose: 80 mg Documented by: Clopidogrel Bisulfate (Plavix) 75 mg PO QDAY [facility] Last Admin: 03/21/19 21:43 Dose: 75 mg Documented by: Famotidine (Pepcid) 20 mg PO BID [facility] Last Admin: 03/21/19 21:45 Dose: 20 mg Documented by: Finasteride (Proscar) 5 mg PO DAILY [facility] Last Admin: 03/21/19 21:43 Dose: 5 mg Documented by: Hydromorphone HCl (Dilaudid) 0.5 mg IV Q3H PRN PRN Reason: Pain , Severe (7-10) Sodium Chloride (Nacl 0.9% 1000 Ml) 1,000 mls @ 75 mls/hr IV DIRECT LIZBETH Stop: 03/22/19 11:00 Levetiracetam (Keppra) 750 mg PO 0900,1700 [facility] Ondansetron HCl (Zofran) 4 mg IV Q8H PRN PRN Reason: Nausea And Vomiting Oxycodone/Acetaminophen (Percocet 5/325) 1 tab PO Q6H PRN PRN Reason: Pain, Moderate (4-6) Sodium Chloride (Sodium Chloride Flush Syringe 10 Ml) 10 ml IV BID [facility] Last Admin: 03/21/19 21:43 Dose: 10 ml Documented by: Sodium Chloride (Sodium Chloride Flush Syringe 10 Ml) 10 ml IV PRN PRN PRN Reason: LINE FLUSH Tamsulosin HCl (Flomax) 0.4 mg PO HS [facility] Last Admin: 03/21/19 21:43 Dose: 0.4 mg Documented by: Triamterene/HCTZ (Maxzide-25) 1 each PO QDAY [facility] Last Admin: 03/21/19 21:42 Dose: 1 each Documented by: Physical Examination - Vital Signs Vital Signs: Vital Signs Temp Pulse Resp BP Pulse Ox 97.7 F 78 16 134/69 100 03/21/19 13:17 03/21/19 13:17 03/21/19 13:17 03/21/19 13:17 03/21/19 13:17 Results - Laboratory Findings CBC and BMP: 03/22/19 04:26 03/22/19 04:26 Abnormal Lab Findings: Abnormal Labs 03/21/19 03/21/19 03/21/19 13:28 13:28 13:28 WBC Hct 45.7 H [place] % (Auto) 9.7 H Potassium 3.3 L Creatinine Glucose 133 H POC Glucose Albumin 3.7 L HDL Cholesterol 03/21/19 03/22/19 03/22/19 13:39 04:26 04:26 WBC 4.2 L Hct [place] % (Auto) 12.0 H Potassium Creatinine 0.7 L Glucose POC Glucose 117 H Albumin 3.4 L HDL Cholesterol 39 L Assessment and Plan 69 YR OLD MALE WITH HIST OF HYPERTENSION,STROKE WITH RESIDUAL RT HEMIPARESIS,ATRIAL FIBRILLATION,EPILEPSY WHO IS A RESIDENTIAL RESIDENT CAME IN WITH COMPLAIN OF INCREASED WEAKNESS ON THE RT. SIDE AND DROOLING FROM THE RT. SIDE OF FACE.PATIENT WAS BROUGHT ON CODE STROKE,HOWEVER TPA WAS NOT GIVEN DUE TO BEING OUT OF WINDOW PERIOD. PATIENT HAS BEEN ON PLAVIX AND ASPIRIN AND ALSO STATIN, HIS HOME MEDS INCLUDE STATIN 80MG/DAY. PATIENT STATED THAT HE HAS BEEN COMPLIANT WITH MEDICATION. DENIES ANY RECURRENCE OF SEIZURE.WORK UP AFTER ADMISSION INCLUDING CT SCAN DID NOT SHOW ANY ACUTE LESION .PATIENT DENIES RECURRENCE OF SEIZURE. PHYSICAL EXAMINATION- ALERT AND AWAKE. ANSWERS QUESTIONS APPROPRIATELY, HAS INSIGHT INTO HIS CONDITION. HEART- NORMAL RATE AND RYTHM, CAROTIDS- BOTH PALPABLE, CRANIAL NERVES- RT FACIAL WEAKNESS (UMN TYPE), OTHER CRANIAL NERVES ARE WITH IN NORMAL LIMIT MOTOR- WEAK RT UPPER AND LOWER EXTREMITIES, WITH INCRAESED TONE ON BOTH UPPER AND LOWER EXTREMITIES. REFLEXES- REFLEXES ARE INCREASED ON THE RT. UPPER AND LOWER EXTREMITIES WITH UP GOING TOE ON THE RT SIDE. SENSORY - GROSSLY WITH IN NORMAL LIMIT. IMPRESSION. 1. PROBABLE RECURRENT STROKE ON THE LEFT HEMISPHERE WHILE ON ASPIRIN AND PLAVIX IN A BACK GROUND OF ATRIAL FIBRILLATION. RECOMMEND. 1. PLEASE GET DIFFUSION MRI FOR CONFIRMATION OF ACUTE STROKE, 2, ONCE ACUTE STROKE IS CONFIRMED WILL START OTHER WORK UP SUCH 2D ECHO,CTA OF HEAD AND NECK, AND WILL SWITCH TO APIXABAN 5MG PO BID IN PLACE OF ASPIRIN AND PLAVIX, 3. PATIENT WILL BENEFIT FROM AGGRESSIVE PHYSICAL THERAPY AND IS EXPECTED TO WALK AGAIN.
[2019-03-22] MEDS: levETIRAcetam 500 MG TAB PO SCH ×2 (09:29→16:41)
[2019-03-22] MEDS: FINASTERIDE 5 MG TAB PO SCH (09:29)
[2019-03-22] MEDS: amLODIPine 10 MG TAB PO SCH (09:30)
[2019-03-22] MEDS: CLOPIDOGREL 75 MG TAB PO SCH (09:30)
[2019-03-22] MEDS: ASPIRIN 325 MG TAB PO SCH (09:30)
[2019-03-22] MEDS: TRIAMTER/HCTZ 37.5-25 MG TAB PO SCH (09:31)
[2019-03-22] MEDS: FAMOTIDINE 20 MG TAB PO SCH ×2 (09:32→21:22)
--- NOTE | 2019-03-22 14:35 | Progress Note ---
Subjective Date of service: 03/22/19 Interval history: Assessment and Plan - Patient Problems (1) R/O Acute CVA (cerebrovascular accident) Current Visit: Yes Status: Acute Plan to address problem: Diffusion MRI of the brain ordered MRA carotid duplex scan and echo were not ordered because of her done recently Neurology consult note reviewed and personally discussed with Dr. Clemente Speech/PT/OT consultation (2) HTN (hypertension) Current Visit: No Status: Chronic Permissive hypertension for 24 hrs (3) Seizure disorder Current Visit: No Status: Chronic Plan to address problem: Continue Keppra 750 mg twice a day (4) Hypokalemia Current Visit: Yes Status: Acute Plan to address problem: Supplemented Improved (5) Atrial fibrillation Current Visit: Yes Status: Chronic Qualifiers: Atrial fibrillation type: chronic Qualified Code(s): I48.2 - Chronic atrial fibrillation Plan to address problem: Continue Plavix/ ASA Discussed with neurology MRAs positive for acute stroke may need to start on Eliquis (6) BPH (benign prostatic hyperplasia) Current Visit: Yes Status: Chronic Qualifiers: Lower urinary tract symptom presence: symptoms present Plan to address problem: Continue Flomax and Proscar (7) Hyperlipidemia Current Visit: No Status: Chronic Mixed hyperlipidemia Plan to address problem: Continue statins (8) DVT prophylaxis Current Visit: Yes Status: Acute Plan to address problem: On Lovenox and GI prophylaxis Patient is awake and alert and responds fairly well She offers no specific complaints except weakness on his right side he moves all his extremities and very difficult to localize focal weakness He has all extremity weakness but the tone significantly increased in the right upper and lower extremity He offers no other specific complaints except weakness PE: HEENT; normocephalic pupils are round reactive to light throat is clear Neck is supple no JVD Lungs clear to auscultation Heart S1-S2 regular rate and rhythm Abdomen is soft nontender Extremities all extremity weakness, trace bilateral leg edema [employer]: Awake and alert, moves all extremities, increased tone and mild stiffness in the right upper and lower extremities Objective - Constitutional Vitals: Vital Signs - 12hr 03/22/19 03/22/19 03/22/19 04:39 04:40 05:45 Temperature 97.7 F Pulse Rate 67 Pulse Rate [ 84 Apical] Pulse Rate [ Left Radial] Pulse Rate [ Right Radial] Respiratory 18 18 Rate Blood Pressure 109/52 O2 Sat by Pulse 96 96 Oximetry 03/22/19 03/22/19 03/22/19 08:29 09:00 09:27 Temperature 98.3 F Pulse Rate 71 83 43 L Pulse Rate [ Apical] Pulse Rate [ Left Radial] Pulse Rate [ Right Radial] Respiratory 18 Rate Blood Pressure 137/86 138/90 O2 Sat by Pulse 98 95 Oximetry 03/22/19 03/22/19 03/22/19 09:30 09:40 10:00 Temperature Pulse Rate 68 Pulse Rate [ 68 Apical] Pulse Rate [ 68 Left Radial] Pulse Rate [ 68 Right Radial] Respiratory 19 Rate Blood Pressure 138/90 O2 Sat by Pulse 96 98 Oximetry 03/22/19 11:26 Temperature 98.4 F Pulse Rate 81 Pulse Rate [ Apical] Pulse Rate [ Left Radial] Pulse Rate [ Right Radial] Respiratory 18 Rate Blood Pressure 129/76 O2 Sat by Pulse 99 Oximetry - Labs CBC & Chem 7: 03/22/19 04:26 03/22/19 04:26 Labs: Abnormal lab results 03/22/19 03/22/19 Range/Units 04:26 04:26 WBC 4.2 L (4.5-11.0) K/mm3 Long % (Auto) 12.0 H (0.0-7.3) % Creatinine 0.7 L (0.8-1.5) mg/dL Albumin 3.4 L (3.9-5) g/dL HDL Cholesterol 39 L (40-59) mg/dL
[2019-03-22] MEDS: TAMSULOSIN 0.4 MG CAP PO SCH (21:22)
[2019-03-23 05:04] LABS: BUN/Creatinine Ratio 16; Blood Urea Nitrogen 11 mg/dL (9-20); Hemolysis Index 17
[2019-03-23] MEDS: levETIRAcetam 500 MG TAB PO SCH ×2 (09:00→17:16)
--- NOTE | 2019-03-23 09:27 | Magnetic Resonance Report ---
MRI BRAIN WITHOUT CONTRAST INDICATION / CLINICAL INFORMATION: stroke. Right sided weakness and right facial droop. TECHNIQUE: Multiplanar, multisequence MR images of the brain were obtained. COMPARISON: Brain MRI on 01/04/2019. FINDINGS: BRAIN / INTRACRANIAL CONTENTS: There is a small acute infarct in the posterior limb of the left inter nal capsule without associated hemorrhage or adverse mass effect. There is no other acute infarct. Th ere are stable otherwise chronic lacunar infarcts in the deep cerebral white matter and right elie. T here is stable advanced chronic microvascular angiopathic change in the deep cerebral white matter. V entricular and cisternal size appears appropriate for age. CRANIOCERVICAL JUNCTION: No significant abnormality. VASCULAR FLOW-VOIDS: No significant abnormality. ORBITS: No significant abnormality of visualized orbits. SINUSES / MASTOIDS: No significant abnormality of visualized sinuses and mastoid air cells. ADDITIONAL FINDINGS: None. IMPRESSION: 1. Small acute lacunar infarct in the posterior limb of the left internal capsule. 2. No additional adverse change from prior brain MRI on 01/04/2019. Signer Name: Ricardo Arana MD Signed: 03/23/2019 9:22 AM Workstation Name: [id number]
[2019-03-23] MEDS: CLOPIDOGREL 75 MG TAB PO SCH (10:46)
[2019-03-23] MEDS: amLODIPine 10 MG TAB PO SCH (10:46)
[2019-03-23] MEDS: FAMOTIDINE 20 MG TAB PO SCH ×2 (10:46→21:47)
[2019-03-23] MEDS: FINASTERIDE 5 MG TAB PO SCH (10:46)
[2019-03-23] MEDS: ASPIRIN 325 MG TAB PO SCH (10:46)
[2019-03-23] MEDS: TRIAMTER/HCTZ 37.5-25 MG TAB PO SCH (10:47)
--- NOTE | 2019-03-23 11:25 | Progress Note ---
Assessment and Plan Assessment and plan: Acute CVA (cerebrovascular accident) Diffusion MRI of the brain pending MRA carotid duplex scan and echo were not ordered because of her done recently Neurology consult note reviewed and personally discussed with Dr. Clemente Speech/PT/OT consultation HTN (hypertension) Continue home antihypertensive medications. Seizure disorder Continue Keppra 750 mg twice a day. Seizure precautions. Hypokalemia Supplemented Improved Atrial fibrillation Continue Plavix/ ASA MRAs positive for acute stroke may need to start on Eliquis BPH (benign prostatic hyperplasia) Continue Flomax and Proscar Hyperlipidemia Continue statins DVT prophylaxis On Lovenox and GI prophylaxis History Interval history: No new issues overnight. Hospitalist Physical - Constitutional Vitals: Temp Pulse Resp BP Pulse Ox 98.2 F 71 18 148/85 98 03/23/19 03:40 03/23/19 10:46 03/23/19 08:51 03/23/19 10:46 03/23/19 08:51 General appearance: Present: no acute distress, well-nourished - EENT Eyes: Present: PERRL, EOM intact ENT: hearing intact, clear oral mucosa, dentition normal - Neck Neck: Present: supple, normal ROM - Respiratory Respiratory effort: normal Respiratory: bilateral: CTA - Cardiovascular Rhythm: regular Heart Sounds: Present: S1 & S2. Absent: gallop, rub - Extremities Extremities: no ischemia, No edema, Full ROM - Abdominal General gastrointestinal: soft, non-tender, non-distended, normal bowel sounds - Integumentary Integumentary: Present: clear, warm, dry - Neurologic Neurologic: CNII-XII intact, moves all extremities Results - Labs CBC & Chem 7: 03/22/19 04:26 03/23/19 04:13 Labs: Laboratory Last Values WBC 4.2 K/mm3 (4.5-11.0) L 03/22/19 04:26 RBC 4.68 M/mm3 (3.65-5.03) 03/22/19 04:26 Hgb 14.2 gm/dl (11.8-15.2) 03/22/19 04:26 Hct 42.4 % (35.5-45.6) 03/22/19 04:26 MCV 91 fl (84-94) 03/22/19 04:26 MCH 30 pg (28-32) 03/22/19 04:26 MCHC 34 % (32-34) 03/22/19 04:26 RDW 14.0 % (13.2-15.2) 03/22/19 04:26 Plt Count 261 K/mm3 (140-440) 03/22/19 04:26 Lymph % (Auto) 32.4 % (13.4-35.0) 03/22/19 04:26 [place] % (Auto) 12.0 % (0.0-7.3) H 03/22/19 04:26 Eos % (Auto) 4.3 % (0.0-4.3) 03/22/19 04:26 Baso % (Auto) 0.8 % (0.0-1.8) 03/22/19 04:26 Lymph # 1.4 K/mm3 (1.2-5.4) 03/22/19 04:26 [place] # 0.5 K/mm3 (0.0-0.8) 03/22/19 04:26 Eos # 0.2 K/mm3 (0.0-0.4) 03/22/19 04:26 Baso # 0.0 K/mm3 (0.0-0.1) 03/22/19 04:26 Seg Neutrophils % 50.5 % (40.0-70.0) 03/22/19 04:26 Seg Neutrophils # 2.1 K/mm3 (1.8-7.7) 03/22/19 04:26 PT 14.1 Sec. (12.2-14.9) 03/21/19 13:28 INR 1.12 (0.87-1.13) 03/21/19 13:28 APTT 29.3 Sec. (24.2-36.6) 03/21/19 13:28 Thrombin Time 18.2 Sec. (15.1-19.6) 03/21/19 13:28 Sodium 138 mmol/L (137-145) 03/23/19 04:13 Potassium 3.6 mmol/L (3.6-5.0) 03/23/19 04:13 Chloride 101.4 mmol/L (98-107) 03/23/19 04:13 Carbon Dioxide 24 mmol/L (22-30) 03/23/19 04:13 Anion Gap 16 mmol/L 03/23/19 04:13 BUN 11 mg/dL (9-20) 03/23/19 04:13 Creatinine 0.7 mg/dL (0.8-1.5) L 03/23/19 04:13 Estimated GFR > 60 ml/min 03/23/19 04:13 BUN/Creatinine Ratio 16 % 03/23/19 04:13 Glucose 96 mg/dL (75-100) 03/23/19 04:13 POC Glucose 83 (70-105) 03/23/19 08:13 Hemoglobin A1c 5.9 % (4-6) 03/21/19 20:27 Calcium 9.0 mg/dL (8.4-10.2) 03/23/19 04:13 Total Bilirubin 0.50 mg/dL (0.1-1.2) 03/22/19 04:26 Direct Bilirubin < 0.2 mg/dL (0-0.2) 03/21/19 13:28 Indirect Bilirubin 0.3 mg/dL 03/21/19 13:28 AST 18 units/L (5-40) 03/22/19 04:26 ALT 15 units/L (7-56) 03/22/19 04:26 Alkaline Phosphatase 84 units/L (35-129) 03/22/19 04:26 Troponin T < 0.010 ng/mL (0.00-0.029) 03/21/19 13:28 Total Protein 6.5 g/dL (6.3-8.2) 03/22/19 04:26 Albumin 3.4 g/dL (3.9-5) L 03/22/19 04:26 Albumin/Globulin Ratio 1.1 % 03/22/19 04:26 Triglycerides 61 mg/dL (2-149) 03/22/19 04:26 Cholesterol 99 mg/dL (50-199) 03/22/19 04:26 LDL Cholesterol Direct 53 mg/dL (50-130) 03/22/19 04:26 HDL Cholesterol 39 mg/dL (40-59) L 03/22/19 04:26 Cholesterol/HDL Ratio 2.53 % 03/22/19 04:26 Urine Color Yellow (Yellow) 03/21/19 14:05 Urine Turbidity Slightly-cloudy (Clear) 03/21/19 14:05 Urine pH 6.0 (5.0-7.0) 03/21/19 14:05 Ur Specific [place] 1.015 (1.003-1.030) 03/21/19 14:05 Urine Protein <15 mg/dl mg/dL (Negative) 03/21/19 14:05 Urine Glucose (UA) Neg mg/dL (Negative) 03/21/19 14:05 Urine Ketones Neg mg/dL (Negative) 03/21/19 14:05 Urine Blood Sm (Negative) 03/21/19 14:05 Urine Nitrite Neg (Negative) 03/21/19 14:05 Urine Bilirubin Neg (Negative) 03/21/19 14:05 Urine Urobilinogen 4.0 mg/dL (<2.0) 03/21/19 14:05 Ur Leukocyte Esterase Tr (Negative) 03/21/19 14:05 Urine WBC (Auto) 5.0 /HPF (0.0-6.0) 03/21/19 14:05 Urine RBC (Auto) 10.0 /HPF (0.0-6.0) 03/21/19 14:05 Urine Bacteria (Auto) 1+ /HPF (Negative) 03/21/19 14:05 Active Medications - Current Medications Current Medications: Generic Name Dose Route Start Last Admin Trade Name Freq PRN Reason Stop Dose Admin Acetaminophen 650 mg 03/21/19 20:13 Tylenol PO Q4H PRN Pain MILD(1-3)/Fever >100.5/FORMAN Amlodipine Besylate 10 mg 03/21/19 21:00 03/23/19 10:46 Norvasc PO 10 mg DAILY LIZBETH Administration Aspirin 325 mg 03/21/19 21:00 03/23/19 10:46 Aspirin PO 325 mg QDAY LIZBETH Administration Atorvastatin Calcium 80 mg 03/21/19 22:00 03/22/19 21:22 Lipitor PO 80 mg QHS LIZBETH Administration Clopidogrel Bisulfate 75 mg 03/21/19 21:00 03/23/19 10:46 Plavix PO 75 mg QDAY LIZBETH Administration Famotidine 20 mg 03/21/19 22:00 03/23/19 10:46 Pepcid PO 20 mg BID LIZBETH Administration Finasteride 5 mg 03/21/19 21:00 03/23/19 10:46 Proscar PO 5 mg DAILY LIZBETH Administration Hydromorphone HCl 0.5 mg 03/21/19 20:14 Dilaudid IV Q3H PRN Pain , Severe (7-10) Levetiracetam 750 mg 03/22/19 09:00 03/23/19 09:00 Keppra PO 750 mg 0900,1700 LIZBETH Administration Ondansetron HCl 4 mg 03/21/19 20:13 Zofran IV Q8H PRN Nausea And Vomiting Oxycodone/Acetaminophen 1 tab 03/21/19 20:14 Percocet 5/325 PO Q6H PRN Pain, Moderate (4-6) Sodium Chloride 10 ml 03/21/19 22:00 03/23/19 10:47 Sodium Chloride Flush Syringe 10 Ml IV 10 ml BID LIZBETH Administration Sodium Chloride 10 ml 03/21/19 20:13 Sodium Chloride Flush Syringe 10 Ml IV PRN PRN LINE FLUSH Tamsulosin HCl 0.4 mg 03/21/19 22:00 03/22/19 21:22 Flomax PO 0.4 mg HS LIZBETH Administration Triamterene/HCTZ 1 each 03/21/19 21:00 03/23/19 10:47 Maxzide-25 PO 1 each QDAY LIZBETH Administration
--- NOTE | 2019-03-23 17:15 | Progress Note ---
Assessment and Plan PATIENT WITH INCREASED WEAKNESS ON RT SIDE ON TOP OF RESIDUAL RT SIDED WEAKNESS FROM PREVIOUS STROKE, PATIENT WAS NOT GIVEN TPA, CT SCAN DID NOT SHOW ANY ACUTE INFARCT OR HEMORRHAGE. MRI SHOWED ACUTE INFARCT IN THE POSTERIOR LIMB OF LEFT INTERNAL CAPSULE. PATIENT ACQUIRED A NEW STROKE WHILE ON ASPIRIN AND PLAVIX INDICATING THEY ARE NOT WORKING. PATIENT HAS ATRIAL FIBRILLATION, PLAVIX DOES NOT WORK WELL WITH ATRIAL FIBRILLATION. PHYSICAL EXAMINATION. ALERT AND AWAKE. ANSWERS QUESTIONS APPROPRIATELY. SPEECH- NO APHASIA, HAS SLIGHT DYSARTHRIA HEART-NORMAL RATE AND RYTHM. CRANIAL NERVES- MILD RT FACIAL WEAKNESS,OTHER CRANIAL NERVES ARE WITH IN NORMAL LIMIT MOTOR- WEAK RT UPPER AND LOWER EXTREMITIES, INCREASED MUSCLE TONE ON THE RT. SIDE. REFLEXES- REFLEXES ARE INCREASED ON THE RT UPPER AND LOWER EXTREMITIES WITH UP GOING TOE ON THE RT SIDE SENSORY- GROSSLY WITH IN NORMAL LIMIT, IMPRESSION. 1. RECURRENT STROKE WHILE ON ASPIRIN AND PLAVIX IN A BACK GROUND OF ATRIAL FIBRILLATION RECOMMEND. 1.PLEASE CHECK LIPID PROFILE,T4,TSH, CTA OF NECK, 2D ECHO 2. PATIENT SHOULD BE ON ANTI COAGULATION, APIXABAN 5 MG BID OR XARELTO OR COUMADIN IF HE CAN NOT AFFORD APIXABAN AND OR XARELTO OR INSURANCE DOES NOT COVE 3. CONSULT PT,OT Objective - Vital Sign Vital Signs - 12hr 03/23/19 03/23/19 03/23/19 08:51 09:00 10:46 Pulse Rate 87 71 Pulse Rate [ 81 Apical] Pulse Rate [ 81 Left Radial] Pulse Rate [ 81 Right Radial] Respiratory 18 Rate Blood Pressure 148/85 O2 Sat by Pulse 98 Oximetry - Laboratory Findings CBC and BMP: 03/22/19 04:26 03/23/19 04:13 Abnormal Lab Findings: Abnormal Labs 03/21/19 03/21/19 03/21/19 13:28 13:28 13:28 WBC Hct 45.7 H [place] % (Auto) 9.7 H Potassium 3.3 L Creatinine Glucose 133 H POC Glucose Albumin 3.7 L HDL Cholesterol 03/21/19 03/22/19 03/22/19 13:39 04:26 04:26 WBC 4.2 L Hct [place] % (Auto) 12.0 H Potassium Creatinine 0.7 L Glucose POC Glucose 117 H Albumin 3.4 L HDL Cholesterol 39 L 03/22/19 03/23/19 03/23/19 20:32 04:13 16:50 WBC Hct [place] % (Auto) Potassium Creatinine 0.7 L Glucose POC Glucose 134 H 112 H Albumin HDL Cholesterol
[2019-03-23] MEDS: TAMSULOSIN 0.4 MG CAP PO SCH (21:47)
--- NOTE | 2019-03-24 10:35 | Progress Note ---
Assessment and Plan Assessment and plan: Acute CVA (cerebrovascular accident) MRI reveals left internal capsular lacunar infarct. Cardiology to perform follow-up echocardiogram with bubble study. Recent echocardiogram done a few months ago. Neurology recommends CT of the neck. Physical therapy recommends [facility] Start apixiban HTN (hypertension) Continue home antihypertensive medications. Seizure disorder Continue Keppra 750 mg twice a day. Seizure precautions. Hypokalemia Supplemented Improved Atrial fibrillation Continue Plavix/ ASA MRAs positive for acute stroke may need to start on Eliquis BPH (benign prostatic hyperplasia) Continue Flomax and Proscar Hyperlipidemia Continue statins DVT prophylaxis On Lovenox and GI prophylaxis Disposition Case management to potentially arrange for [facility] placement versus assisted living with home health. History Interval history: No new issues overnight. Hospitalist Physical - Constitutional Vitals: Temp Pulse Resp BP Pulse Ox 98.1 F 40 L 18 137/62 98 03/24/19 07:20 03/24/19 07:20 03/24/19 07:20 03/24/19 07:20 03/24/19 07:20 General appearance: Present: no acute distress, well-nourished - EENT Eyes: Present: PERRL, EOM intact ENT: hearing intact, clear oral mucosa, dentition normal - Neck Neck: Present: supple, normal ROM - Respiratory Respiratory effort: normal Respiratory: bilateral: CTA - Cardiovascular Rhythm: regular Heart Sounds: Present: S1 & S2. Absent: gallop, rub - Extremities Extremities: no ischemia, No edema, Full ROM - Abdominal General gastrointestinal: soft, non-tender, non-distended, normal bowel sounds - Integumentary Integumentary: Present: clear, warm, dry - Neurologic Neurologic: CNII-XII intact, moves all extremities Results - Labs CBC & Chem 7: 03/22/19 04:26 03/23/19 04:13 Labs: Laboratory Last Values WBC 4.2 K/mm3 (4.5-11.0) L 03/22/19 04:26 RBC 4.68 M/mm3 (3.65-5.03) 03/22/19 04:26 Hgb 14.2 gm/dl (11.8-15.2) 03/22/19 04:26 Hct 42.4 % (35.5-45.6) 03/22/19 04:26 MCV 91 fl (84-94) 03/22/19 04:26 MCH 30 pg (28-32) 03/22/19 04:26 MCHC 34 % (32-34) 03/22/19 04:26 RDW 14.0 % (13.2-15.2) 03/22/19 04:26 Plt Count 261 K/mm3 (140-440) 03/22/19 04:26 Lymph % (Auto) 32.4 % (13.4-35.0) 03/22/19 04:26 [place] % (Auto) 12.0 % (0.0-7.3) H 03/22/19 04:26 Eos % (Auto) 4.3 % (0.0-4.3) 03/22/19 04:26 Baso % (Auto) 0.8 % (0.0-1.8) 03/22/19 04:26 Lymph # 1.4 K/mm3 (1.2-5.4) 03/22/19 04:26 [place] # 0.5 K/mm3 (0.0-0.8) 03/22/19 04:26 Eos # 0.2 K/mm3 (0.0-0.4) 03/22/19 04:26 Baso # 0.0 K/mm3 (0.0-0.1) 03/22/19 04:26 Seg Neutrophils % 50.5 % (40.0-70.0) 03/22/19 04:26 Seg Neutrophils # 2.1 K/mm3 (1.8-7.7) 03/22/19 04:26 PT 14.1 Sec. (12.2-14.9) 03/21/19 13:28 INR 1.12 (0.87-1.13) 03/21/19 13:28 APTT 29.3 Sec. (24.2-36.6) 03/21/19 13:28 Thrombin Time 18.2 Sec. (15.1-19.6) 03/21/19 13:28 Sodium 138 mmol/L (137-145) 03/23/19 04:13 Potassium 3.6 mmol/L (3.6-5.0) 03/23/19 04:13 Chloride 101.4 mmol/L (98-107) 03/23/19 04:13 Carbon Dioxide 24 mmol/L (22-30) 03/23/19 04:13 Anion Gap 16 mmol/L 03/23/19 04:13 BUN 11 mg/dL (9-20) 03/23/19 04:13 Creatinine 0.7 mg/dL (0.8-1.5) L 03/23/19 04:13 Estimated GFR > 60 ml/min 03/23/19 04:13 BUN/Creatinine Ratio 16 % 03/23/19 04:13 Glucose 96 mg/dL (75-100) 03/23/19 04:13 POC Glucose 102 (70-105) 03/24/19 07:26 Hemoglobin A1c 5.9 % (4-6) 03/21/19 20:27 Calcium 9.0 mg/dL (8.4-10.2) 03/23/19 04:13 Total Bilirubin 0.50 mg/dL (0.1-1.2) 03/22/19 04:26 Direct Bilirubin < 0.2 mg/dL (0-0.2) 03/21/19 13:28 Indirect Bilirubin 0.3 mg/dL 03/21/19 13:28 AST 18 units/L (5-40) 03/22/19 04:26 ALT 15 units/L (7-56) 03/22/19 04:26 Alkaline Phosphatase 84 units/L (35-129) 03/22/19 04:26 Troponin T < 0.010 ng/mL (0.00-0.029) 03/21/19 13:28 Total Protein 6.5 g/dL (6.3-8.2) 03/22/19 04:26 Albumin 3.4 g/dL (3.9-5) L 03/22/19 04:26 Albumin/Globulin Ratio 1.1 % 03/22/19 04:26 Triglycerides 61 mg/dL (2-149) 03/22/19 04:26 Cholesterol 99 mg/dL (50-199) 03/22/19 04:26 LDL Cholesterol Direct 53 mg/dL (50-130) 03/22/19 04:26 HDL Cholesterol 39 mg/dL (40-59) L 03/22/19 04:26 Cholesterol/HDL Ratio 2.53 % 03/22/19 04:26 Urine Color Yellow (Yellow) 03/21/19 14:05 Urine Turbidity Slightly-cloudy (Clear) 03/21/19 14:05 Urine pH 6.0 (5.0-7.0) 03/21/19 14:05 Ur Specific [place] 1.015 (1.003-1.030) 03/21/19 14:05 Urine Protein <15 mg/dl mg/dL (Negative) 03/21/19 14:05 Urine Glucose (UA) Neg mg/dL (Negative) 03/21/19 14:05 Urine Ketones Neg mg/dL (Negative) 03/21/19 14:05 Urine Blood Sm (Negative) 03/21/19 14:05 Urine Nitrite Neg (Negative) 03/21/19 14:05 Urine Bilirubin Neg (Negative) 03/21/19 14:05 Urine Urobilinogen 4.0 mg/dL (<2.0) 03/21/19 14:05 Ur Leukocyte Esterase Tr (Negative) 03/21/19 14:05 Urine WBC (Auto) 5.0 /HPF (0.0-6.0) 03/21/19 14:05 Urine RBC (Auto) 10.0 /HPF (0.0-6.0) 03/21/19 14:05 Urine Bacteria (Auto) 1+ /HPF (Negative) 03/21/19 14:05 Active Medications - Current Medications Current Medications: Generic Name Dose Route Start Last Admin Trade Name Freq PRN Reason Stop Dose Admin Acetaminophen 650 mg 03/21/19 20:13 Tylenol PO Q4H PRN Pain MILD(1-3)/Fever >100.5/FORMAN Amlodipine Besylate 10 mg 03/21/19 21:00 03/23/19 10:46 Norvasc PO 10 mg DAILY LIZBETH Administration Aspirin 325 mg 03/21/19 21:00 03/23/19 10:46 Aspirin PO 325 mg QDAY LIZBETH Administration Atorvastatin Calcium 80 mg 03/21/19 22:00 03/23/19 21:47 Lipitor PO 80 mg QHS LIZBETH Administration Clopidogrel Bisulfate 75 mg 03/21/19 21:00 03/23/19 10:46 Plavix PO 75 mg QDAY LIZBETH Administration Famotidine 20 mg 03/21/19 22:00 03/23/19 21:47 Pepcid PO 20 mg BID LIZBETH Administration Finasteride 5 mg 03/21/19 21:00 03/23/19 10:46 Proscar PO 5 mg DAILY LIZBETH Administration Hydromorphone HCl 0.5 mg 03/21/19 20:14 Dilaudid IV Q3H PRN Pain , Severe (7-10) Levetiracetam 750 mg 03/22/19 09:00 03/23/19 17:16 Keppra PO 750 mg 0900,1700 LIZBETH Administration Ondansetron HCl 4 mg 03/21/19 20:13 Zofran IV Q8H PRN Nausea And Vomiting Oxycodone/Acetaminophen 1 tab 03/21/19 20:14 Percocet 5/325 PO Q6H PRN Pain, Moderate (4-6) Sodium Chloride 10 ml 03/21/19 22:00 03/23/19 21:47 Sodium Chloride Flush Syringe 10 Ml IV 10 ml BID LIZBETH Administration Sodium Chloride 10 ml 03/21/19 20:13 Sodium Chloride Flush Syringe 10 Ml IV PRN PRN LINE FLUSH Tamsulosin HCl 0.4 mg 03/21/19 22:00 03/23/19 21:47 Flomax PO 0.4 mg HS LIZBETH Administration Triamterene/HCTZ 1 each 03/21/19 21:00 03/23/19 10:47 Maxzide-25 PO 1 each QDAY LIZBETH Administration
[2019-03-24] MEDS: amLODIPine 10 MG TAB PO SCH (11:21)
[2019-03-24] MEDS: FINASTERIDE 5 MG TAB PO SCH (11:22)
[2019-03-24] MEDS: ASPIRIN 325 MG TAB PO SCH (11:22)
[2019-03-24] MEDS: FAMOTIDINE 20 MG TAB PO SCH ×2 (11:22→22:01)
[2019-03-24] MEDS: levETIRAcetam 500 MG TAB PO SCH ×2 (11:27→18:35)
[2019-03-24] MEDS: TRIAMTER/HCTZ 37.5-25 MG TAB PO SCH (11:27)
[2019-03-24] MEDS: TAMSULOSIN 0.4 MG CAP PO SCH (22:00)
[2019-03-24] MEDS: APIXABAN 5 MG TAB PO SCH (22:01)
--- NOTE | 2019-03-25 08:13 | Discharge Summary ---
Providers - Providers Date of Admission: 03/21/19 16:36 Date of discharge: 03/25/19 Attending physician: LITA CHAVEZ 03/21/19 Consult to Case Management [CONS] Routine Services Needed at Discharge: Physical Therapy Nurse Transitional Notified:: case management 03/21/19 20:14 Consult to Physician [CONS] Routine Comment: Consulting Provider: LAZARUS SMITH Physician Instructions: Reason For Exam: cva 03/21/19 20:16 Occupational Therapy Evaluate and Treat [CONS] Routine Comment: Reason For Exam: Neuro deficits Physical Therapy Evaluation and Treat [CONS] Routine Comment: Reason For Exam: Neuro deficits 03/22/19 17:47 Speech Therapy Evaluation and Treat [CONS] Routine Reason For Exam: for swallowing eval Primary care physician: LINE PERSON Hospitalization Reason for admission: cva Condition: Stable Hospital course: This is a 69-year-old male [facility] resident with history of hypertension, CVA with right sided residual hemiparesis, atrial fibrillation and seizure disorder who presented through the emergency department with complaints of increased right-sided weakness. Patient was also noted to have some drooling to the right side of the face. Patient was admitted with acute CVA and presented with cold stroke. However, TPA was not given because patient was outside of the time window. Patient had previously been on aspirin, Plavix and statin and reportedly compliant with medications. CT scan did not reveal any acute lesion. Patient was seen by neurology in consultation who recommended MRI. MRI revealed left internal capsule lacunar infarct. Patient had echocardiogram with bubble study with results pending. Neurology recommended apixiban since patient had a recurrent stroke while on aspirin and Plavix in a background of atrial fibrillation. Neurology also recommended CT of the neck which is pending. TSH and T4 within normal limits. Physical therapy recommended subacute rehabilitation. Case management was consulted with placement and thus patient will be discharged. Dedicated discharge time 32 minutes. Disposition: [id number] [facility] Time spent for discharge: 32 - Discharge Diagnoses (1) Acute CVA (cerebrovascular accident) Status: Acute (2) Right sided weakness Status: Acute (3) Atrial fibrillation Status: Chronic Qualifiers: Atrial fibrillation type: chronic (4) History of CVA (cerebrovascular accident) Status: Chronic Core Measure Documentation - Palliative Care Palliative Care/ Comfort Measures: Not Applicable - Core Measures Any of the following diagnoses?: stroke - Stroke Discharge Requirements Statin for LDL = or >70 mg/dl on DC: Yes Anticoag for atrial fib/atrial flutter: Yes Antithrombotic for ischemic stroke: Yes Exam - Constitutional Vitals: Temp Pulse Resp BP Pulse Ox 98.0 F 84 18 132/88 98 03/25/19 04:03 03/25/19 04:03 03/25/19 04:03 03/25/19 04:03 03/25/19 04:03 General appearance: Present: no acute distress, well-nourished - EENT Eyes: Present: PERRL ENT: hearing intact, clear oral mucosa - Neck Neck: Present: supple, normal ROM - Respiratory Respiratory effort: normal Respiratory: bilateral: CTA - Cardiovascular Heart Sounds: Present: S1 & S2. Absent: rub, click - Extremities Extremities: pulses symmetrical, No edema Peripheral Pulses: within normal limits - Abdominal General gastrointestinal: Present: soft, non-tender, non-distended, normal bowel sounds Male genitourinary: Present: normal - Integumentary Integumentary: Present: clear, warm, dry - Musculoskeletal Musculoskeletal: gait normal, strength equal bilaterally - Psychiatric Psychiatric: appropriate mood/affect, intact judgment & insight - Neurologic Neurologic: CNII-XII intact, moves all extremities, other (right hemiparesis) Plan Activity: advance as tolerated Weight Bearing Status: Weight Bear as Tolerated Diet: low fat, low cholesterol, low salt Follow up with: OSKAR SEGOVIA MD [Primary Care Provider] - 7 Days LAZARUS SMITH MD [Staff Physician] - 7 Days
[2019-03-25] MEDS: levETIRAcetam 500 MG TAB PO SCH ×2 (14:51→17:00)
[2019-03-25] MEDS: ASPIRIN 325 MG TAB PO SCH (14:51)
[2019-03-25] MEDS: APIXABAN 5 MG TAB PO SCH (14:52)
[2019-03-25] MEDS: TRIAMTER/HCTZ 37.5-25 MG TAB PO SCH (14:52)
[2019-03-25] MEDS: amLODIPine 10 MG TAB PO SCH (14:52)
[2019-03-25] MEDS: FAMOTIDINE 20 MG TAB PO SCH (14:53)
[2019-03-25] MEDS: FINASTERIDE 5 MG TAB PO SCH (14:53)
--- NOTE | 2019-03-25 16:22 | Cat Scan Report ---
CTA neck with and without contrast CLINICAL HISTORY: Cerebrovascular accident. Technique: Multiple contiguous postcontrast axial CT images of the neck were obtained at 0.63 mm inte rvals. 3 plane MIP reconstructions were produced. Precontrast localizing images were also performed. All CT scans at this location are performed using the CT dose reduction for ALARA by means of automat ed exposure control. FINDINGS: No previous exams available for comparison. There are small foci of calcification involving the right carotid bifurcation and proximal right ICA without significant stenosis by NASCET criteria . There is also no significant focal narrowing involving the left carotid arteries. The intracranial segments are obscured by the degree of motion. However, there is mild calcified plaque involving the distal ICAs without significant narrowing. 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 There is also notable developmental hypoplasia the right vertebral artery which appears to terminate distally in PICA. The left vertebral artery is clearly dominant without significant focal stenosis at . There is developmental tortuosity of the hypoplastic right vertebral artery at the C2 level. There is no significant narrowing involving the arch of vessels. All CT scans at this location are performe d using the CT dose reduction for ALARA by means of automated exposure control. IMPRESSION: There is mild calcification involving the right carotid bifurcation. However, there is no significant stenosis involving the carotid arteries by NASCET criteria. 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 Signer Name: Mark Solares MD Signed: 03/25/2019 4:17 PM Workstation Name: [id number]
[2019-03-25 19:45] VITALS: BP 134/75
== END 2019-03-25 22:05 | DRG 65 ==
LOC: ED 13:17 → 4A 16:36
PROVIDERS: ADMIT Internal Medicine; ATTEND Hospitalist
DX: I63.9 Cerebral infarction, unspecified (principal); G81.91 Hemiplegia, unspecified affecting right dominant side; I48.20 Chronic atrial fibrillation, unspecified; I10 Essential (primary) hypertension; E87.6 Hypokalemia; N40.0 Benign prostatic hyperplasia without lower urinary tract symptoms; G40.909 Epilepsy, unspecified, not intractable, without status epilepticus; E78.2 Mixed hyperlipidemia; E11.9 Type 2 diabetes mellitus without complications; R47.02 Dysphasia; M19.90 Unspecified osteoarthritis, unspecified site; R29.714 NIHSS score 14; F03.90 Unspecified dementia, unspecified severity, without behavioral disturbance, psychotic disturbance, mood disturbance, and anxiety; Z82.49 Family history of ischemic heart disease and other diseases of the circulatory system; Z79.899 Other long term (current) drug therapy; Z79.82 Long term (current) use of aspirin
CPT/HCPCS: 36415; 70450; 70498; 70551; 80048; 80053; 80061; 80076; 81001; 82962; 83036; 84439; 84443; 84481; 84484; 85025; 85610; 85670; 85730; 87116; 93005; 93010; 93308; 93321; 93325; 96374; G0378; A9270-GY; J1953; Q9967

== ENCOUNTER 2019-07-01 08:43 | Emergency (ER) | payer MEDICARE ==
[2019-07-01 11:08] LABS: Bilirubin,Urine NEG (Negative); Blood,Urine NEG (Negative); Color,Urine Straw (Yellow); Protein,Urine <15 mg/dL mg/dL (Negative); Urobilinogen,Urine < 2.0 mg/dL (<2.0)
--- NOTE | 2019-07-01 11:45 | Cat Scan Report ---
CT BRAIN: 07/01/2019 INDICATION / CLINICAL INFORMATION: Alterted Mental Status. COMPARISON: 03/21/2019 FINDINGS: BRAIN/INTRACRANIAL STRUCTURES: Unenhanced CT images of the brain demonstrate no evidence of acute int racranial abnormality. Ventricles and sulci are prominent in size, consistent with prominent diffuse cerebral atrophy. Exten sive chronic white matter hypoattenuation is present. There is no evidence of acute ischemic injury, hemorrhage, or mass. There are no abnormal extra-axial fluid collections. Atherosclerotic vascular calcifications are present in the distal internal carotid arteries and verte bral arteries. EXTRACRANIAL STRUCTURES: Unremarkable. IMPRESSION: No acute abnormality. Stable chronic and age-related changes. All CT scans at this location are performed using dose reduction to ALARA by means of automated expos ure control. Signer Name: Edward Patten MD Signed: 07/01/2019 11:41 AM Workstation Name: [id number]
[2019-07-01 12:07] LABS: Basophils % (Auto) 0.6 % (0.0-1.8); Eosinophils # (Auto) 0.6 K/mm3 (0.0-0.4); Eosinophils % (Auto) 9.1 % (0.0-4.3); Hematocrit 40.8 % (35.5-45.6); Hemoglobin 13.7 gm/dl (11.8-15.2); Lymphocytes # (Auto) 1.7 K/mm3 (1.2-5.4); Mean Corpuscular HGB Conc 34 % (32-34); Mean Corpuscular Volume 88 fl (84-94); Monocytes # (Auto) 0.8 K/mm3 (0.0-0.8); Monocytes % (Auto) 11.1 % (0.0-7.3); Platelet Count 416 K/mm3 (140-440); Red Blood Count 4.64 M/mm3 (3.65-5.03); Red Cell Distribution Width 14.5 % (13.2-15.2)
[2019-07-01 12:31] LABS: BUN/Creatinine Ratio 7; Blood Urea Nitrogen 4 mg/dL (9-20); Calcium 9.5 mg/dL (8.4-10.2); Hemolysis Index 5
--- NOTE | 2019-07-01 12:38 | XRay Report ---
CHEST 1 VIEW INDICATION: Altered Mental Status. COMPARISON: 01/08/2019 FINDINGS: Support devices: None. Heart: Within normal limits. Lungs/Pleura: No acute air space or interstitial disease. Additional findings: None. IMPRESSION: No acute findings. Signer Name: Nate Aceves Jr, MD Signed: 07/01/2019 12:33 PM Workstation Name: [id number]
[2019-07-01 13:09] LABS: Alanine Aminotransferase 20 units/L (7-56); Albumin 3.3 g/dL (3.9-5)
--- NOTE | 2019-07-01 13:21 | Emergency Department Report ---
ED Allergic Reaction HPI - General Chief complaint: Altered Mental Status Stated complaint: AMS Time Seen by Provider: 07/01/19 09:40 Source: EMS Mode of arrival: Stretcher Limitations: Altered Mental Status - History of Present Illness Initial Comments: Patient sent from the [facility] per ER nurse to the ER with concern for altered mental status. 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 Reports patient was agitated per staff at [facility]. - Related Data Home Medications Medication Instructions Recorded Confirmed Last Taken Aspirin EC [Halfprin EC] 81 mg PO QDAY 03/21/19 03/21/19 Unknown Atorvastatin [Lipitor] 80 mg PO DAILY 03/21/19 03/21/19 Unknown Chlorhexidine Gluconate [Paroex] 15 ml MM 0900,1700 03/21/19 03/21/19 Unknown Finasteride [Proscar] 5 mg PO DAILY 03/21/19 03/21/19 Unknown Tamsulosin [Flomax] 0.4 mg PO HS 03/21/19 03/21/19 Unknown levETIRAcetam [Keppra TAB] 750 mg PO 0900,1700 03/21/19 03/21/19 Unknown Previous Rx's Medication Instructions Recorded Last Taken Type Acetaminophen [Acetaminophen TAB] 650 mg PO Q4H PRN #15 tablet 07/10/18 Unknown Rx Triamter/Hctz 37.5-25 mg 1 tab PO QDAY #30 tablet 01/14/19 Unknown Rx [Maxzide-25] amLODIPine 10 mg PO DAILY #30 tablet 01/14/19 Unknown Rx Apixaban [Eliquis] 5 mg PO BID #60 tablet 03/25/19 Unknown Rx Apixaban [Eliquis] 5 mg PO Q12HR tablet 03/25/19 Unknown Rx Aspirin 325 mg PO QDAY tablet 03/25/19 Unknown Rx AtorvaSTATin [Lipitor] 80 mg PO QHS tablet 03/25/19 Unknown Rx Famotidine [Pepcid] 20 mg PO BID tablet 03/25/19 Unknown Rx levETIRAcetam [Keppra TAB] 750 mg PO 0900,1700 tablet 03/25/19 Unknown Rx Allergies Allergy/AdvReac Type Severity Reaction Status Date / Time No Known Allergies Allergy Unverified 04/14/13 15:08 ED Review of Systems ROS: Stated complaint: AMS Other details as noted in HPI Comment: Unobtainable due to pts medical conditions ED Past Medical Hx - Past Medical History Hx Hypertension: Yes Hx CVA: Yes (1991) Hx Congestive Heart Failure: No Hx Diabetes: Yes Hx Arthritis: Yes Hx Seizures: Yes Hx Asthma: No Hx COPD: No Hx Dementia: Yes Hx HIV: No Additional medical history: high cholesterol - Surgical History Past Surgical History?: Yes Additional Surgical History: cva 1989 - Social History Smoking Status: Unknown if ever smoked Substance Use Type: None - Medications Home Medications: Home Medications Medication Instructions Recorded Confirmed Last Taken Type Acetaminophen [Acetaminophen TAB] 650 mg PO Q4H PRN #15 tablet 07/10/18 03/21/19 Unknown Rx Triamter/Hctz 37.5-25 mg 1 tab PO QDAY #30 tablet 01/14/19 03/21/19 Unknown Rx [Maxzide-25] amLODIPine 10 mg PO DAILY #30 tablet 01/14/19 03/21/19 Unknown Rx Aspirin EC [Halfprin EC] 81 mg PO QDAY 03/21/19 03/21/19 Unknown History Atorvastatin [Lipitor] 80 mg PO DAILY 03/21/19 03/21/19 Unknown History Chlorhexidine Gluconate [Paroex] 15 ml MM 0900,1700 03/21/19 03/21/19 Unknown History Finasteride [Proscar] 5 mg PO DAILY 03/21/19 03/21/19 Unknown History Tamsulosin [Flomax] 0.4 mg PO HS 03/21/19 03/21/19 Unknown History levETIRAcetam [Keppra TAB] 750 mg PO 0900,1700 03/21/19 03/21/19 Unknown History Apixaban [Eliquis] 5 mg PO BID #60 tablet 03/25/19 Unknown Rx Apixaban [Eliquis] 5 mg PO Q12HR tablet 03/25/19 Unknown Rx Aspirin 325 mg PO QDAY tablet 03/25/19 Unknown Rx AtorvaSTATin [Lipitor] 80 mg PO QHS tablet 03/25/19 Unknown Rx Famotidine [Pepcid] 20 mg PO BID tablet 03/25/19 Unknown Rx levETIRAcetam [Keppra TAB] 750 mg PO 0900,1700 tablet 03/25/19 Unknown Rx ED Physical Exam - General Limitations: No Limitations - Other Other exam information: GENERAL: Patient in no acute distress HEAD: Normocephalic, atraumatic EYES: PERRLA, EOM intact, no scleral icterus, no conjunctival hemorrhage, visual holman and acuity wnl NOSE: No tenderness, discharge, sinus tenderness MOUTH: No erythema, bleeding, exudate HEART: Regular rate and rhythm, no murmur, S1-S2 are auscultated, no edema, pulses are symmetric LUNGS: No respiratory distress. Bilateral breath sounds, No tachypnea, No retractions, No wheezing, rales, rhonchi ABDOMEN: Normal bowel sounds, abdomen soft, no tenderness, no rebound, no guarding, no distention, no masses, no CVA tenderness MUSCULOSKELETAL: Normal joint range of motion, no redness, no swelling, no tenderness NEUROLOGIC: Alert and Oriented x1, Cranial nerves intact, normal sensation, left sided weakness PSYCH: Patient without aggression, cooperative. No SI/HI, no hallucinations SKIN: Skin is warm and dry ED Course Vital Signs 07/01/19 07/01/19 07/01/19 09:37 09:46 10:01 Temperature 98.5 F Pulse Rate 87 Respiratory 16 Rate Blood Pressure 151/71 142/86 133/91 Blood Pressure [Left] O2 Sat by Pulse 100 Oximetry 07/01/19 07/01/19 07/01/19 10:15 10:45 11:00 Temperature Pulse Rate Respiratory Rate Blood Pressure 130/71 149/104 124/72 Blood Pressure [Left] O2 Sat by Pulse 98 98 Oximetry 07/01/19 07/01/19 07/01/19 12:01 12:43 13:31 Temperature Pulse Rate 93 H Respiratory 16 Rate Blood Pressure 159/85 135/84 Blood Pressure 140/95 [Left] O2 Sat by Pulse 96 99 97 Oximetry 07/01/19 13:42 Temperature Pulse Rate 98 H Respiratory 16 Rate Blood Pressure Blood Pressure [Left] O2 Sat by Pulse 99 Oximetry ED Medical Decision Making - Lab Data Result diagrams: 07/01/19 11:42 07/01/19 11:42 Laboratory Results - last 24 hr 07/01/19 07/01/19 07/01/19 10:46 11:42 11:42 WBC 7.1 RBC 4.64 Hgb 13.7 Hct 40.8 MCV 88 MCH 30 MCHC 34 RDW 14.5 Plt Count 416 Lymph % (Auto) 24.0 [place] % (Auto) 11.1 H Eos % (Auto) 9.1 H Baso % (Auto) 0.6 Lymph # 1.7 [place] # 0.8 Eos # 0.6 H Baso # 0.0 Seg Neutrophils % 55.2 Seg Neutrophils # 3.9 Sodium 144 Potassium 3.4 L Chloride 103.0 Carbon Dioxide 26 Anion Gap 18 BUN 4 L Creatinine 0.6 L Estimated GFR > 60 BUN/Creatinine Ratio 7 Glucose 99 Calcium 9.5 Total Bilirubin 0.70 AST 25 ALT 20 Alkaline Phosphatase 93 Total Protein 6.8 Albumin 3.3 L Albumin/Globulin Ratio 0.9 Urine Color Straw Urine Turbidity Clear Urine pH 7.0 Ur Specific [place] 1.005 Urine Protein <15 mg/dl Urine Glucose (UA) Neg Urine Ketones Neg Urine Blood Neg Urine Nitrite Neg Urine Bilirubin Neg Urine Urobilinogen < 2.0 Ur Leukocyte Esterase Neg Urine WBC (Auto) 1.0 Urine RBC (Auto) 2.0 - Radiology Data Radiology results: report reviewed - Medical Decision Making Patient comfortable. Plan discharge with outpatient follow up. Return if any worsening. Critical care attestation.: If time is entered above; I have spent that time in minutes in the direct care of this critically ill patient, excluding procedure time. ED Disposition Clinical Impression: Encounter for medical screening examination Altered mental status Qualifiers: Altered mental status type: unspecified Qualified Code(s): R41.82 - Altered mental status, unspecified Disposition: DC-01 TO HOME OR SELFCARE Is pt being admited?: No Condition: Stable Instructions: Altered Mental Status (ED) Referrals: CLARITZA PARK MD [Primary Care Provider] - 2-3 Days Time of Disposition: 13:19
[2019-07-01 13:41] VITALS: BP 135/84
== END 2019-07-01 14:34 | disposition home or self-care (01) ==
LOC: ED 08:43
DX: R41.82 Altered mental status, unspecified (principal); I10 Essential (primary) hypertension; E11.9 Type 2 diabetes mellitus without complications; M19.90 Unspecified osteoarthritis, unspecified site; F03.90 Unspecified dementia, unspecified severity, without behavioral disturbance, psychotic disturbance, mood disturbance, and anxiety; E78.00 Pure hypercholesterolemia, unspecified; Z86.73 Personal history of transient ischemic attack (TIA), and cerebral infarction without residual deficits; Z79.899 Other long term (current) drug therapy; Z00.00 Encounter for general adult medical examination without abnormal findings
CPT/HCPCS: 36415; 70450; 71045; 80053; 81001; 85025; 87086; 93005; 93010

== ENCOUNTER 2019-07-23 13:46 | Emergency (ER) | payer MEDICARE ==
[2019-07-23] MEDS ORDERED: KETOROLAC 60 MG/2 ML INJ IM ONE (15:10)
[2019-07-23 15:27] VITALS: BP 120/77
[2019-07-23 15:44] LABS: Bilirubin,Urine NEG (Negative); Blood,Urine NEG (Negative); Color,Urine Yellow (Yellow); Mucus,Urine FEW /HPF; Protein,Urine <15 mg/dL mg/dL (Negative)
[2019-07-23 16:43] LABS: Basophils % (Auto) 0.4 % (0.0-1.8); Eosinophils # (Auto) 0.2 K/mm3 (0.0-0.4); Eosinophils % (Auto) 2.4 % (0.0-4.3); Hematocrit 36.9 % (35.5-45.6); Hemoglobin 12.3 gm/dl (11.8-15.2); Lymphocytes # (Auto) 1.5 K/mm3 (1.2-5.4); Lymphocytes % (Auto) 16.1 % (13.4-35.0); Mean Corpuscular HGB Conc 33 % (32-34); Mean Corpuscular Volume 90 fl (84-94); Monocytes # (Auto) 1.1 K/mm3 (0.0-0.8); Monocytes % (Auto) 12.1 % (0.0-7.3); Platelet Count 371 K/mm3 (140-440); Red Blood Count 4.12 M/mm3 (3.65-5.03); Red Cell Distribution Width 14.8 % (13.2-15.2)
[2019-07-23 16:59] LABS: BUN/Creatinine Ratio 15; Blood Urea Nitrogen 12 mg/dL (9-20); Calcium 9.6 mg/dL (8.4-10.2); Hemolysis Index 8
--- NOTE | 2019-07-23 17:31 | Emergency Department Report ---
ED General Adult HPI - General Chief complaint: Medical Clearance Stated complaint: POSS UTI Time Seen by Provider: 07/23/19 15:09 Source: EMS Mode of arrival: Ambulatory Limitations: No Limitations - History of Present Illness Initial comments: Patient is a 69-year-old -[place] male with a past medical history of CVA who is currently residing in a detention who is been brought in for medical evaluation. Patient's daughter came to visit him today stated that he was not right. intermediate staff state that he is at his baseline. Patient is complaining of pain all over the can give no other information. Patient's daughter states that she believes may have a urinary tract infection. Patient has no fevers chills no cough cold congestion nausea or vomiting at this time. - Related Data Home Medications Medication Instructions Recorded Confirmed Last Taken Aspirin EC [Halfprin EC] 81 mg PO QDAY 03/21/19 03/21/19 Unknown Atorvastatin [Lipitor] 80 mg PO DAILY 03/21/19 03/21/19 Unknown Chlorhexidine Gluconate [Paroex] 15 ml MM 0900,1700 03/21/19 03/21/19 Unknown Finasteride [Proscar] 5 mg PO DAILY 03/21/19 03/21/19 Unknown Tamsulosin [Flomax] 0.4 mg PO HS 03/21/19 03/21/19 Unknown levETIRAcetam [Keppra TAB] 750 mg PO 0900,1700 03/21/19 03/21/19 Unknown Previous Rx's Medication Instructions Recorded Last Taken Type Acetaminophen [Acetaminophen TAB] 650 mg PO Q4H PRN #15 tablet 07/10/18 Unknown Rx Triamter/Hctz 37.5-25 mg 1 tab PO QDAY #30 tablet 01/14/19 Unknown Rx [Maxzide-25] amLODIPine 10 mg PO DAILY #30 tablet 01/14/19 Unknown Rx Apixaban [Eliquis] 5 mg PO BID #60 tablet 03/25/19 Unknown Rx Apixaban [Eliquis] 5 mg PO Q12HR tablet 03/25/19 Unknown Rx Aspirin 325 mg PO QDAY tablet 03/25/19 Unknown Rx AtorvaSTATin [Lipitor] 80 mg PO QHS tablet 03/25/19 Unknown Rx Famotidine [Pepcid] 20 mg PO BID tablet 03/25/19 Unknown Rx levETIRAcetam [Keppra TAB] 750 mg PO 0900,1700 tablet 03/25/19 Unknown Rx Allergies Allergy/AdvReac Type Severity Reaction Status Date / Time No Known Allergies Allergy Unverified 04/14/13 15:08 ED Review of Systems ROS: Stated complaint: POSS UTI Other details as noted in HPI Comment: Unobtainable due to pts medical conditions ED Past Medical Hx - Past Medical History Previous Medical History?: Yes Hx Hypertension: Yes Hx CVA: Yes (1991) Hx Congestive Heart Failure: No Hx Diabetes: Yes Hx Arthritis: Yes Hx Seizures: Yes Hx Asthma: No Hx COPD: No Hx Dementia: Yes Hx HIV: No Additional medical history: high cholesterol - Surgical History Past Surgical History?: Yes Additional Surgical History: cva 1989 - Social History Smoking Status: Unknown if ever smoked - Medications Home Medications: Home Medications Medication Instructions Recorded Confirmed Last Taken Type Acetaminophen [Acetaminophen TAB] 650 mg PO Q4H PRN #15 tablet 07/10/18 03/21/19 Unknown Rx Triamter/Hctz 37.5-25 mg 1 tab PO QDAY #30 tablet 01/14/19 03/21/19 Unknown Rx [Maxzide-25] amLODIPine 10 mg PO DAILY #30 tablet 01/14/19 03/21/19 Unknown Rx Aspirin EC [Halfprin EC] 81 mg PO QDAY 03/21/19 03/21/19 Unknown History Atorvastatin [Lipitor] 80 mg PO DAILY 03/21/19 03/21/19 Unknown History Chlorhexidine Gluconate [Paroex] 15 ml MM 0900,1700 03/21/19 03/21/19 Unknown History Finasteride [Proscar] 5 mg PO DAILY 03/21/19 03/21/19 Unknown History Tamsulosin [Flomax] 0.4 mg PO HS 03/21/19 03/21/19 Unknown History levETIRAcetam [Keppra TAB] 750 mg PO 0900,1700 03/21/19 03/21/19 Unknown History Apixaban [Eliquis] 5 mg PO BID #60 tablet 03/25/19 Unknown Rx Apixaban [Eliquis] 5 mg PO Q12HR tablet 03/25/19 Unknown Rx Aspirin 325 mg PO QDAY tablet 03/25/19 Unknown Rx AtorvaSTATin [Lipitor] 80 mg PO QHS tablet 03/25/19 Unknown Rx Famotidine [Pepcid] 20 mg PO BID tablet 03/25/19 Unknown Rx levETIRAcetam [Keppra TAB] 750 mg PO 0900,1700 tablet 03/25/19 Unknown Rx ED Physical Exam - General Limitations: No Limitations General appearance: alert, in no apparent distress - Head Head exam: Present: atraumatic, normocephalic - Eye Eye exam: Present: normal appearance, PERRL, EOMI - ENT ENT exam: Present: mucous membranes dry - Neck Neck exam: Present: normal inspection - Respiratory Respiratory exam: Present: normal lung sounds bilaterally. Absent: respiratory distress, wheezes, rales, rhonchi - Cardiovascular Cardiovascular Exam: Present: regular rate, normal rhythm, normal heart sounds. Absent: systolic murmur, diastolic murmur, rubs, gallop - GI/Abdominal GI/Abdominal exam: Present: soft, normal bowel sounds. Absent: distended, tenderness, guarding - Rectal Rectal exam: Present: deferred - Extremities Exam Extremities exam: Present: normal inspection - Back Exam Back exam: Present: normal inspection - Neurological Exam Neurological exam: Present: alert, altered (patient answers yes to everything. When asked does the patient have pain in his chest abdomen legs arms patient just continues to say yes) - Psychiatric Psychiatric exam: Present: normal affect, normal mood - Skin Skin exam: Present: warm, dry, intact, normal color. Absent: rash ED Course Vital Signs 07/23/19 15:26 Temperature 98.7 F Pulse Rate 87 Respiratory 16 Rate Blood Pressure 120/77 [Left] O2 Sat by Pulse 98 Oximetry ED Medical Decision Making - Lab Data Result diagrams: 07/23/19 15:51 07/23/19 15:51 Lab Results 07/23/19 07/23/19 07/23/19 Range/Units 15:24 15:51 15:51 WBC 9.1 (4.5-11.0) K/mm3 RBC 4.12 (3.65-5.03) M/mm3 Hgb 12.3 (11.8-15.2) gm/dl Hct 36.9 (35.5-45.6) % MCV 90 (84-94) fl MCH 30 (28-32) pg MCHC 33 (32-34) % RDW 14.8 (13.2-15.2) % Plt Count 371 (140-440) K/mm3 Lymph % (Auto) 16.1 (13.4-35.0) % [place] % (Auto) 12.1 H (0.0-7.3) % Eos % (Auto) 2.4 (0.0-4.3) % Baso % (Auto) 0.4 (0.0-1.8) % Lymph # 1.5 (1.2-5.4) K/mm3 [place] # 1.1 H (0.0-0.8) K/mm3 Eos # 0.2 (0.0-0.4) K/mm3 Baso # 0.0 (0.0-0.1) K/mm3 Seg Neutrophils % 69.0 (40.0-70.0) % Seg Neutrophils # 6.3 (1.8-7.7) K/mm3 Sodium 145 (137-145) mmol/L Potassium 3.8 (3.6-5.0) mmol/L Chloride 105.7 (98-107) mmol/L Carbon Dioxide 24 (22-30) mmol/L Anion Gap 19 mmol/L BUN 12 (9-20) mg/dL Creatinine 0.8 (0.8-1.5) mg/dL Estimated GFR > 60 ml/min BUN/Creatinine Ratio 15 % Glucose 148 H (75-100) mg/dL Calcium 9.6 (8.4-10.2) mg/dL Urine Color Yellow (Yellow) Urine Turbidity Clear (Clear) Urine pH 7.0 (5.0-7.0) Ur Specific [place] 1.013 (1.003-1.030) Urine Protein <15 mg/dl (Negative) mg/dL Urine Glucose (UA) Neg (Negative) mg/dL Urine Ketones Neg (Negative) mg/dL Urine Blood Neg (Negative) Urine Nitrite Neg (Negative) Urine Bilirubin Neg (Negative) Urine Urobilinogen 2.0 (<2.0) mg/dL Ur Leukocyte Esterase Neg (Negative) Urine WBC (Auto) 2.0 (0.0-6.0) /HPF Urine RBC (Auto) 5.0 (0.0-6.0) /HPF U Epithel Cells (Auto) < 1.0 (0-13.0) /HPF Urine Mucus Few /HPF - Medical Decision Making Patient is a 69-year-old -[place] male who is a poor historian secondary to history of stroke. Patient does state the he has pain all over. When asked does have pain in different locations patient's answers always yes. Basic Lipitor studies were performed is time to see if the patient has a emergent medical condition. Laboratory studies were within normal limits. There is no evidence of infection. Patient has been medically cleared to return back to his detention. Patient be discharged home. Critical care attestation.: If time is entered above; I have spent that time in minutes in the direct care of this critically ill patient, excluding procedure time. ED Disposition Clinical Impression: Altered mental state, Encounter for medical clearance for patient hold Dementia Qualifiers: Dementia type: unspecified type Dementia behavioral disturbance: without behavioral disturbance Qualified Code(s): F03.90 - Unspecified dementia without behavioral disturbance Disposition: DC-01 TO HOME OR SELFCARE Is pt being admited?: No Does the pt Need Aspirin: No Condition: Stable Referrals: CLARITZA PARK MD [Primary Care Provider] - 3-5 Days Time of Disposition: 17:32
== END 2019-07-23 18:53 | disposition home or self-care (01) ==
LOC: ED 13:46
DX: R41.82 Altered mental status, unspecified (principal); F03.90 Unspecified dementia, unspecified severity, without behavioral disturbance, psychotic disturbance, mood disturbance, and anxiety; Z04.6 Encounter for general psychiatric examination, requested by authority; I10 Essential (primary) hypertension; E11.9 Type 2 diabetes mellitus without complications; M19.90 Unspecified osteoarthritis, unspecified site; G40.909 Epilepsy, unspecified, not intractable, without status epilepticus; Z86.73 Personal history of transient ischemic attack (TIA), and cerebral infarction without residual deficits; Z79.899 Other long term (current) drug therapy
CPT/HCPCS: 36415; 80048; 81001; 85025; 96372